=== PATIENT | female | born 1940 | race Caucasian/White ===

== ENCOUNTER 2024-03-15 20:29 | Emergency (ER) | payer MEDICARE, BC, SELFPAY ==
[2024-03-15 20:37] VITALS: BP 146/88
[2024-03-15 20:54] VITALS: BP 143/80; BMI 24.1
[2024-03-15 21:09] LABS: % Basophils 0.8 % (0-2); % Eosinophils 2.1 % (0-6); % Immature Granulocytes 0.3 % (0-0.5); % Lymphocytes 26.2 % (20.5-51.1); % Monocytes 9.6 % (1.7-9.3); Absolute Basophils 0.1 10^3/uL (0-0.2); Absolute Eosinophils 0.1 10^3/uL (0-0.7); Absolute Lymphocytes 1.6 10^3/uL (1.2-3.4); Absolute Monocytes 0.6 10^3/uL (0.1-0.6); Absolute Neutrophils 3.8 10^3/uL (1.4-6.5); Hematocrit 29.7 % (37.0-47.0); Hemoglobin 10.2 g/dL (12.0-16.0); Mean Corp Hgb Conc. 34.3 g/dL (33.0-37.0); Mean Corpuscular Hgb 32.5 pg (27.0-31.0); Mean Corpuscular Volume 94.6 fL (81.0-99.0); Mean Platelet Volume 9.9 fL (7.4-10.4); Nucleated Red Blood Cells % 0 %; Platelet Count 231 10^3/uL (130-400); Red Blood Cell Count 3.14 10^6/uL (4.20-5.40); Red Cell Dist. Width 12.6 % (11.5-14.5); White Blood Cell Count 6.3 10^3/uL (4.8-10.8)
[2024-03-15 21:21] LABS: ALT (SGPT) 18 U/L (0-35); AST (SGOT) 32 U/L (14-36); Albumin 3.9 g/dl (3.5-5.0); Alkaline Phosphatase 89 U/L (38-126); Blood Urea Nitrogen 23 mg/dl (7-17); Calcium 9.1 mg/dl (8.4-10.2); Carbon Dioxide 25 mmol/L (22-30); Chloride 100 mmol/L (98-107); Estimated Creatinine Clearance 39 ml/min; Glucose 131 mg/dl (70-99); Potassium 4.7 mmol/L (3.5-5.1); Sodium 132 mmol/L (135-145); Total Bilirubin 0.5 mg/dl (0.2-1.3); Total Protein 6.8 g/dl (6.3-8.2); eGFR 55.55
--- NOTE | 2024-03-15 21:27 | PHANOTE ---
03/15/2024, [employer], spoke to pt. to obtain her med. history; per pt., she took her 4 mg Ondansetron ODT tablet last night (prescribed 1 tab [id number] for nausea) and states that she did not feel well afterwards; pt. states to have experienced
negative symptoms after taking this med.
--- NOTE | 2024-03-15 21:47 | ED.GENMED ---
History of Present Illness
General
Chief Complaint: Weakness
Source: patient and family (Daughter)
Exam Limitations: none
Time Seen by Provider: 03/15/24 21:30
History of Present Illness
History of Present Illness:
This is a 84 year old female that comes in with c/o dehydration. State that she is just feeling dehydrated. States that she was given Zofran for nausea and this made her more nauseated and kept her up all night. States that she has an appointment
with the GI specialist tomorrow at 9am. States that she gets hot and cold. Patient does see Pain management for her chronic back pain. Denies any fever, chills, chest pain, SOB, abd pain, nausea, vomiting, dairrhea, headache, dizziness, urinary
burning.
Past History
Past History
ED Past Medical History: Psychiatric (Anxiety) and Other (Osteoporosis, Chronic back pain, Hep A, Glaucoma. Vertebral fractures)
ED Past Surgical History: Cholecystectomy, Orthopedic (Left knee replacement, Right hand surgery), Tonsilectomy and Other (hernia repair X 2 hand surgery)
Social History
Tobacco: Non-smoker
Alcohol: None
Personal:
Living: with family
Review of Systems
Review of Systems
All Other Systems: ROS reviewed and negative except as documented in HPI and ROS
Constitutional: Reports no symptoms; Denies fever or chills
EENT: Reports no symptoms
Respiratory: Reports no symptoms; Denies cough or trouble breathing
Cardiac: Reports no symptoms; Denies chest pain
ABD/GI: Reports no symptoms; Denies abdominal pain, nausea, vomiting or diarrhea
: Reports no symptoms; Denies dysuria, frequency or urgency
Musculoskeletal: Reports no symptoms
Skin: Reports no symptoms
Neurological: Reports no symptoms; Denies dizzy or headache
Psychiatric: Reports no symptoms
Phy Exam
General Physical Exam
General Presentation: mild distress
General age: appears stated age
General Skin: warm and dry
General Habitus: elderly
General Mental: alert
General Hydration: appears well hydrated
ENT Exam
ENT Exam: TM's normal, pharynx normal and neck supple
Eye Exam
Eye Exam: EOMI
Cardiovascular Exam
Cardiovascular Exam: regular rate/rhythm, no edema and normal peripheral pulses
Pulmonary Exam
Pulmonary Exam: lungs clear, no respiratory distress, no rales, chest non tender, no crackles, no rhonchi, no wheezing and no cough
Gastrointestinal Exam
Gastrointestinal Exam: normal bowel sounds, non tender, soft, no organomegaly, no pulsatile mass and non distended
Musculoskeletal Exam
Musculoskeletal Exam: full ROM, back pain (Chronic) and no edema
Skin Exam
Skin Exam: normal color, warm/dry, no rash and no petechia
Psychiatric Exam
Psychiatric Exam: normal mood/affect
Course
Orders/Labs/Results
Orders:
Orders
03/15/24 21:02
CMP [Comprehensive Metabolic Panel] Urgent
Complete Blood Count/With Diff Urgent
03/15/24 21:46
0.9% Sodium Chloride 1000 ml [Nss] 1,000 ml IV BOLUS
03/15/24 21:59
Urinalysis Reflex To Culture Urgent
Date Specimen was Collected: 03/15/24
Time Specimen was Collected: 21:54
Urine Microscopic Reflex Cult Urgent
Urine Culture Urgent
NAVEED Source: U
Specimen Description:
Date Specimen was Collected: 03/15/24
Time Specimen was Collected: 21:54
Abnormal Lab Results
03/15/24 03/15/24
21:02 21:59
RBC 3.14 L 10^6/uL
(4.20-5.40)
Hgb 10.2 L g/dL
(12.0-16.0)
Hct 29.7 L %
(37.0-47.0)
MCH 32.5 H pg
(27.0-31.0)
Monocytes % 9.6 H %
(1.7-9.3)
Sodium 132 L mmol/L
(135-145)
BUN 23 H mg/dl
(7-17)
Glucose 131 H mg/dl
(70-99)
Leukocyte Esterase Rfl 2+ A
(Negative)
Urine WBC (Reflex) 21-25 A /HPF
(0-5)
Urine Bacteria (Reflex) Few A
(Negative)
03/15/24 21:02
03/15/24 21:02
H/H low. Dehydration. Sodium slightly low. Glucose nonfasting. Urine questionable, would wait for Culture to treat
Vital Signs
Initial and Last Documented VS:
Initial Vital Signs
Temp Pulse Resp BP Pulse Ox
98.1 F 73 22 146/88 99
03/15/24 20:37 03/15/24 20:37 03/15/24 20:37 03/15/24 20:37 03/15/24 20:37
Last Documented Vital Signs
Temp Pulse Resp BP Pulse Ox
98.1 F 73 22 146/88 97
03/15/24 20:37 03/15/24 20:37 03/15/24 20:37 03/15/24 20:37 03/15/24 21:05
MDM/Problems Addressed
Differential Diagnosis Includes:
Dehydration. Chronic back pain,
MDM/Problems Addressed:
This is a 84 year old female that comes in with c/o dehydration. States that she has had issues with nausea and was given Zofran last night. States that this made her worse and she was up all night. State that she just wants IV fluids.
Will check labs, Urine and give IV fluids.
Patient was given IV fluids. Back into see patient. Patient now states that she can't eat or drink and this is why she is dehydrated. States that she can't go home. Will admit patient. Hospitalist notified.
Notified hospitalist and she now wants to go home. Patient was give water here and drank the entire glass. Will discharge home.
Chronic conditions affecting care:
Chronic back pain
Acute Exacerbation and/or Progression of Chronic Illness:
Chronic back pain
*Pulse Oximetry
Patient hypoxic: no
*EKG
Interpreted by ED Provider?: NA
Rate: EKG- N/A
*Rn Triage Interpretation
Rate: Rn Triage- N/A
*Critical Care Note
Total Time (30-74mins, 75-104mins- exclusive of procedures): Not Applicable
ED Attending Note
-
Portions of this chart may have been created with voice recognition software.� Occasional wrong word or��sound alike� substitutions may have occurred due to the inherent limitations of voice recognition software.
Discharge Plan
Departure
Patient Disposition: Home (Routine Discharge)
Date of Disposition: 03/15/24
Time of Disposition: 23:07
Patient with high blood pressure during this ER visit?: Yes
Condition: Good
Covid-19: Not Applicable
Discharge Problem:
Dehydration
Instructions: Dehydration, Adult ED, BLOOD PRESSURE
Prescriptions:
No Action
trazodone 50 mg Tablet
50 mg PO HS PRN (Reason: sleep)
polyethylene glycol 3350 [Miralax] 17 gram Powder In Packet
17 g PO DAILY
ofloxacin 0.3 % Drops
1 drp LEFT EYE DAILY@1999
cyanocobalamin (vitamin B-12) 1,000 mcg Tablet
1,000 mcg PO DAILY
oxycodone-acetaminophen 5-325 mg Tablet
1 tab PO Q4HPRN PRN (Reason: mild pain)
oxycodone-acetaminophen 5-325 mg Tablet
2 tab PO Q4HPRN PRN (Reason: severe pain)
Fleet Enema 19-7 gram/118 mL Enema
118 ml [place] DAILYPRN PRN (Reason: constipation)
zinc 50 mg Tablet
50 mg PO DAILY
folic acid 800 mcg Tablet
0.8 mg PO DAILY
Centrum Silver Tablet
1 tab PO DAILY
cholecalciferol (vitamin D3) 25 mcg (1,000 unit) Tablet
25 mcg PO DAILY
Visbiome 112.5 billion cell Capsule
1 cap PO DAILY
Lumigan 0.01 % Drops
1 drp RIGHT EYE DAILY@1999
PreserVision AREDS-2 250-90-40-1 mg Capsule
1 tab PO DAILY
Movantik 25 mg Tablet
25 mg PO DAILY
iron
1 tab PO MOWEFR@0800
Prolia 60 mg/mL Syringe
60 mg SC [id number]
Patient Comments:
03/15/2024, last dose in November per pt.
Referrals:
Kofi Aguilera MD [Family Provider] - Follow up in 2-3 days
Activity Restrictions/Additional Instructions:
As discussed, our blood work shows dehydration. Please increase your water intake to 8-8oz glasses daily. Follow up with the family doctor in the next 2- 3 days for further evaluation. Keep your GI appointment tomorrow. IF YOU HAVE ANY OTHER
CONCERNS PLEASE RETURN TO THE EMERGENCY ROOM
Interventions
Interventions:
*Risk Screen - Suicide Last Done: 03/15/24 20:40
*General Assessment Last Done: 03/15/24 20:39
*Neglect/Abuse Screening Last Done: 03/15/24 21:05
ED- Fall Risk Assessment Last Done: 03/15/24 21:05
ED- Cardiac Assessment Last Done: 03/15/24 21:05
ED- Neurological Assessment Last Done: 03/15/24 21:05
ED- Pulmonary Assessment Last Done: 03/15/24 21:05
Discharge Date and Time
Print Language: SERBIAN
[2024-03-15] MEDS: NSS 1000 IV (21:57)
[2024-03-15 22:10] LABS: Urine Albumin Negative (Neg - Trace); Urine Bilirubin Negative (Negative); Urine Character Slightly Cloudy (Clear); Urine Color Yellow; Urine Glucose Negative (Negative); Urine Ketone Negative (Negative); Urine Leukocyte 2+ (Negative); Urine Nitrite Negative (Negative); Urine Occult Blood Negative (Negative); Urine Specific Gravity 1.005 (<1.030); Urine Urobilinogen Negative (Neg - 1+)
[2024-03-15 22:32] LABS: Urine White Cell 21-25 /HPF (0-5)
[2024-03-15 22:33] LABS: Urine Bacteria Few (Negative)
[2024-03-15 23:01] VITALS: BP 141/75
== END 2024-03-15 23:35 | disposition home or self-care (01) ==
LOC: EMR 20:29
PROVIDERS: Clinical Nurse Specialist Family Health; EMERGENCY PHYSICIAN Emergency Medicine; FAMILY PHYSICIAN Family Medicine
DX: E86.0 Dehydration (principal); R03.0 Elevated blood-pressure reading, without diagnosis of hypertension; G89.29 Other chronic pain; M54.9 Dorsalgia, unspecified
CPT/HCPCS: 99284; 96360; 80053; 81003; 81015; 85025; 87086

== ENCOUNTER → 2024-03-21 09:51 | Outpatient (REF) | payer MEDICARE, BC, SELFPAY | LOC: RAD 09:51 | PROVIDERS: ATTENDING PHYSICIAN Nurse Practitioner Family; FAMILY PHYSICIAN Family Medicine | DX: R13.19 Other dysphagia (principal) | CPT/HCPCS: 74246 ==

== ENCOUNTER → 2024-03-25 06:21 | Day surgery (SDC) | payer MEDICARE, BC, SELFPAY | LOC: GI 06:21 | PROVIDERS: ATTENDING PHYSICIAN Internal Medicine | DX: R12 Heartburn (principal); R13.10 Dysphagia, unspecified; D64.9 Anemia, unspecified; K44.9 Diaphragmatic hernia without obstruction or gangrene; K22.4 Dyskinesia of esophagus; K31.89 Other diseases of stomach and duodenum; R11.0 Nausea; R93.3 Abnormal findings on diagnostic imaging of other parts of digestive tract | CPT/HCPCS: 43239; 88305; 88342 ==

== ENCOUNTER → 2024-03-30 12:09 | Outpatient (REF) | payer MEDICARE, BC, SELFPAY | LOC: RAD 12:09 | PROVIDERS: ATTENDING PHYSICIAN Internal Medicine; FAMILY PHYSICIAN Family Medicine | DX: R19.8 Other specified symptoms and signs involving the digestive system and abdomen (principal) | CPT/HCPCS: 74160; Q9967 ==

== ENCOUNTER 2024-04-05 11:56 | Emergency (ER) | payer MEDICARE, BC, SELFPAY ==
[2024-04-05 12:07] VITALS: BP 130/88
--- NOTE | 2024-04-05 12:47 | ED.GENMED ---
History of Present Illness
General
Chief Complaint: Abdominal Symptoms
Time Seen by Provider: 04/05/24 12:46
History of Present Illness
History of Present Illness:
HPI: The patient presents with ongoing nausea over the past several months. She has been to GI, had endoscopy, and had recent CT without clear improvement of symptoms. She is chronically on Percocet taking 5/325 mg 4 times per day related to
fractures from osteoporosis. Her current symptoms are primarily related to nausea as opposed to abdominal pain. Daughter is very concerned about her living situation at home as she lives by herself and has lost 15 pounds unintentionally over the
last several months. She is already on PPI and H2 shweta.
EXAM:
GENERAL: The patient appears somewhat weak and debilitated
HEENT: Somewhat dry oral mucosa
CARDIOVASCULAR: No murmurs, normal heart rate, regular rhythm, No chest wall tenderness
PULMONARY: No respiratory distress, breath sounds are clear and equal
ABDOMEN: Soft with no peritoneal signs, no tenderness
NEUROLOGIC: Fair strength all extremities, no coordination deficits
PSYCHIATRIC: Appropriate mental status, normal insight and judgement
EXTREMITIES: Nontender, no edema, moves all extremities equally
SKIN: No rash, no lesions
TIME OF INITIAL ENCOUNTER: 1 PM
NUMBER AND COMPLEXITY OF PROBLEMS ADDRESSED AT THE ENCOUNTER
� Chronic conditions affecting care: Hepatitis A, has had constipation, has chronic nausea, osteoporosis with fractures and chronically on Percocet
� Acute Exacerbation and/or Progression of Chronic Illness: This is a subacute problem
� Differential Diagnosis includes: Nausea from Percocet use, gastritis
AMOUNT AND/OR COMPLEXITY OF DATA TO BE REVIEWED AND ANALYZED
� I performed an independent evaluation of and my interpretation is:
EKG:
CT:
X-rays:
Laboratory Studies: White count is normal, hemoglobin is 10.9 which is higher than prior, renal function is normal, potassium hemolyzed
Other:
� Review of other/old records: The patient had upper endoscopy by Dr. 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
of the gastric body as well as significant erosive gastropathy with no stigmata of recent bleeding. CT of the abdomen pelvis on 03/30/2024�the compression of the left lateral gastric body was felt to be related to deformity of the left anterolateral
lower rib cage, she is status postcholecystectomy
� Clinical information was obtained by an independent historian: I spoke to the daughter at bedside
� Prescriptions/Medications Considered but not given:
� Further testing considered but not performed: Due to repeating potassium however the renal function is normal
RISK OF COMPLICATIONS AND/OR MORBIDITY OR MORTALITY OF PATIENT MANAGEMENT
� Social determinants of health affecting care: Lives at home by herself
� Discussion with other providers: I spoke to care management who spoke to daughter at bedside
� Escalation of care including admission/observation vs risk of discharge considered: Will check labs and give IV fluids as well as try Compazine. The patient does not tolerate Zofran. The patient was given Compazine and on
reassessment 2 PM, she feels significantly improved. Will also try switching to tramadol from Percocet. She is known to pain management and I encouraged her to follow-up with them as well. Will also give prescription for Carafate.
Past History
Past History
ED Past Medical History: Psychiatric (Anxiety) and Other (Osteoporosis, Chronic back pain, Hep A, Glaucoma. Vertebral fractures)
ED Past Surgical History: Cholecystectomy, Orthopedic (Left knee replacement, Right hand surgery), Tonsilectomy and Other (hernia repair X 2 hand surgery)
Social History
Tobacco: Non-smoker
Alcohol: None
Personal:
Living: with family
Phy Exam
Physical Exam
Physical Exam:
See HPI
Course
Orders/Labs/Results
Orders:
Orders
04/05/24 12:50
0.9% Sodium Chloride 1000 ml [Nss] 1,000 ml IV BOLUS
04/05/24 12:58
Case Management Consult ONCE
Case Management Consult: Other
Prochlorperazine [Compazine] 10 mg IV NOW STA
04/05/24 13:05
Basic Metabolic Panel Urgent
Complete Blood Count/With Diff Urgent
Lipase Urgent
04/05/24 13:23
Case Management Consult ONCE
Case Management Consult: [facility]/Home Care
04/05/24 13:28
Oxycodone/Acetaminophen [Percocet 5/325] 1 tablet PO NOW STA
Abnormal Lab Results
04/05/24
13:05
RBC 3.33 L 10^6/uL
(4.20-5.40)
Hgb 10.9 L g/dL
(12.0-16.0)
Hct 31.6 L %
(37.0-47.0)
MCH 32.7 H pg
(27.0-31.0)
BUN 23 H mg/dl
(7-17)
Glucose 109 H mg/dl
(70-99)
04/05/24 13:05
04/05/24 13:05
Vital Signs
Initial and Last Documented VS:
Initial Vital Signs
Temp Pulse Resp BP Pulse Ox
98.1 F 74 18 130/88 96
04/05/24 12:07 04/05/24 12:07 04/05/24 12:07 04/05/24 12:07 04/05/24 12:07
Last Documented Vital Signs
Temp Pulse Resp BP Pulse Ox
98.1 F 74 18 130/88 96
04/05/24 12:07 04/05/24 12:07 04/05/24 12:07 04/05/24 12:07 04/05/24 12:07
*Critical Care Note
Total Time (30-74mins, 75-104mins- exclusive of procedures): Not Applicable
ED Attending Note
-
Portions of this chart may have been created with voice recognition software.� Occasional wrong word or��sound alike� substitutions may have occurred due to the inherent limitations of voice recognition software.
Discharge Plan
Departure
Patient Disposition: Home (Routine Discharge)
Date of Disposition: 04/05/24
Time of Disposition: 13:55
Patient with high blood pressure during this ER visit?: Yes
Discharge Problem:
Nausea
Instructions: Nausea and Vomiting, Adult ED
Prescriptions:
New
prochlorperazine maleate [Compazine] 10 mg tablet
10 mg PO Q8H PRN (Reason: nausea and vomiting) Qty: 30 0RF
tramadol 50 mg tablet
50 mg PO Q8H PRN (Reason: Pain) Qty: 14 0RF
sucralfate [Carafate] 100 mg/mL suspension
1 g PO ACHS PRN (Reason: nausea) Qty: 500 0RF
No Action
trazodone 50 mg Tablet
50 mg PO HS PRN (Reason: sleep)
polyethylene glycol 3350 [Miralax] 17 gram Powder In Packet
17 g PO DAILY
ofloxacin 0.3 % Drops
1 drp LEFT EYE DAILY@2000
cyanocobalamin (vitamin B-12) 1,000 mcg Tablet
1,000 mcg PO DAILY
oxycodone-acetaminophen 5-325 mg Tablet
1 tab PO Q4HPRN PRN (Reason: mild pain)
oxycodone-acetaminophen 5-325 mg Tablet
2 tab PO Q4HPRN PRN (Reason: severe pain)
Fleet Enema 19-7 gram/118 mL Enema
118 ml [place] DAILYPRN PRN (Reason: constipation)
zinc 50 mg Tablet
50 mg PO DAILY
folic acid 800 mcg Tablet
0.8 mg PO DAILY
Centrum Silver Tablet
1 tab PO DAILY
cholecalciferol (vitamin D3) 25 mcg (1,000 unit) Tablet
25 mcg PO DAILY
Visbiome 112.5 billion cell Capsule
1 cap PO DAILY
Lumigan 0.01 % Drops
1 drp RIGHT EYE DAILY@2000
PreserVision AREDS-2 250-90-40-1 mg Capsule
1 tab PO DAILY
Movantik 25 mg Tablet
25 mg PO DAILY
iron
1 tab PO MOWEFR@0800
Prolia 60 mg/mL Syringe
60 mg SC [id number]
Patient Comments:
03/15/2024, last dose in November per pt.
Referrals:
Kofi Aguilera MD [Family Provider] -
Amanda Kapoor, [Active] - Follow up in 1 week
Activity Restrictions/Additional Instructions:
I sent a prescription for tramadol to your pharmacy. If you take tramadol, DO NOT TAKE PERCOCET. I also sent a prescription for Carafate which can be used to coat the stomach to be taken before meals and at nighttime. You can use this on an
as-needed basis and see if this helps you. I also sent a prescription to your pharmacy for Compazine which is a medicine for nausea. Follow-up with GI and your primary care doctor.
Interventions
Interventions:
*General Assessment Last Done: 04/05/24 12:03
*ED COVID-19 Vaccine History Last Done: 04/05/24 12:03
Discharge Date and Time
Print Language: SWAZI
[2024-04-05] MEDS: NSS 1000 IV (13:08)
[2024-04-05] MEDS: COMPAZINE 10 MG IV (13:08)
[2024-04-05 13:18] LABS: % Basophils 1.3 % (0-2); % Eosinophils 2.7 % (0-6); % Immature Granulocytes 0.2 % (0-0.5); % Lymphocytes 30.9 % (20.5-51.1); % Monocytes 9.3 % (1.7-9.3); % Neutrophils 55.6 % (42.2-75.2); Absolute Basophils 0.1 10^3/uL (0-0.2); Absolute Eosinophils 0.2 10^3/uL (0-0.7); Absolute Lymphocytes 1.7 10^3/uL (1.2-3.4); Absolute Monocytes 0.5 10^3/uL (0.1-0.6); Absolute Neutrophils 3.1 10^3/uL (1.4-6.5); Hematocrit 31.6 % (37.0-47.0); Hemoglobin 10.9 g/dL (12.0-16.0); Mean Corp Hgb Conc. 34.5 g/dL (33.0-37.0); Mean Corpuscular Hgb 32.7 pg (27.0-31.0); Mean Corpuscular Volume 94.9 fL (81.0-99.0); Mean Platelet Volume 10.2 fL (7.4-10.4); Nucleated Red Blood Cells % 0 %; Platelet Count 238 10^3/uL (130-400); Red Blood Cell Count 3.33 10^6/uL (4.20-5.40); Red Cell Dist. Width 13.2 % (11.5-14.5); White Blood Cell Count 5.6 10^3/uL (4.8-10.8)
[2024-04-05] MEDS: PERCOCET 5/325 1 TABLET PO (13:41)
[2024-04-05 13:42] LABS: Blood Urea Nitrogen 23 mg/dl (7-17); Calcium 9.6 mg/dl (8.4-10.2); Carbon Dioxide 28 mmol/L (22-30); Chloride 101 mmol/L (98-107); Glucose 109 mg/dl (70-99); Lipase 24 U/L (23-300); Sodium 135 mmol/L (135-145); eGFR > 60.00
--- NOTE | 2024-04-05 13:49 | CM ---
CM following re: discharge planning.
Reviewed pt's chart, met with pt and pt's daughter Lauren at bedside.
CM consulted to assist pt with discharger planning/setting up [facility] services.
Pt is an 84 year old female, arrived to ER with abdominal symptoms concerns.
Pt reports she lives alone in a 2[place] 55[place] community 2 steps to enter, has 5 supportive children. Pt reports she ambulates with a cane. per daughter, she helps daily and both pt and her daughter requested VN services. A list of VN vendors provided to
the pt and her daughter. [facility] preferred. A referral to VN made.
PCP: Kofi Aguilera
Pharmacy: [facility]
Please fax discharge instructions to [facility] at [phone].
D/C plan: home with [facility] and family support. Daughter to transport
--- NOTE | 2024-04-05 15:43 | VNURNOTE ---
Spoke with patient's daughter Lauren. Explained [facility] services, frequency. Daughter Lauren aware [facility] will contact patient in a few days for SOC. Referral placed in [facility].
== END 2024-04-05 14:51 | disposition home or self-care (01) ==
LOC: EMR 11:56
PROVIDERS: EMERGENCY PHYSICIAN Emergency Medicine; FAMILY PHYSICIAN Family Medicine
DX: R11.0 Nausea (principal); R53.1 Weakness; R03.0 Elevated blood-pressure reading, without diagnosis of hypertension; M81.0 Age-related osteoporosis without current pathological fracture; K44.9 Diaphragmatic hernia without obstruction or gangrene; K31.9 Disease of stomach and duodenum, unspecified; H40.9 Unspecified glaucoma; F41.9 Anxiety disorder, unspecified; G89.29 Other chronic pain; Z79.891 Long term (current) use of opiate analgesic; Z79.899 Other long term (current) drug therapy; Z98.890 Other specified postprocedural states; Z96.652 Presence of left artificial knee joint; Z90.49 Acquired absence of other specified parts of digestive tract; Z88.1 Allergy status to other antibiotic agents; Z88.3 Allergy status to other anti-infective agents; Z88.5 Allergy status to narcotic agent; Z88.0 Allergy status to penicillin
CPT/HCPCS: 99284; 96374; 96361; 80048; 83690; 85025

== ENCOUNTER 2024-04-28 06:16 | Day surgery (SDC) | payer MEDICARE, BC, SELFPAY ==
[2024-04-28 06:19] VITALS: BP 157/88
[2024-04-28 06:22] VITALS: BMI 22.5
[2024-04-28 06:33] VITALS: BMI 22.5
[2024-04-28] MEDS: TYLENOL 1000 MG PO (06:39)
[2024-04-28] MEDS: NORMOSOL-R 1000 IV (07:00)
--- NOTE | 2024-04-28 07:27 | W.SUR.PREOP ---
Pre-Operative Surgical Note
-
I have examined this patient prior to the performance of the scheduled procedure.
The patient's condition is unchanged from the time of the current History and
Physical and the patient is able to undergo the scheduled procedure.
[2024-04-28 08:40] VITALS: BP 137/81
--- NOTE | 2024-04-28 08:42 | W.IMMPOSTOP ---
Surgical Immed Post Op Note
-
Primary Surgeon: Yandel Roberts MD
Assisting Surgeon: None
Pre-op Diagnosis: Left buttock subcutaneous mass
Post-op Diagnosis: Same
Procedure Performed: Excision of left buttock subcutaneous mass
Anesthesia Type: General
Specimen / Cultures: Left buttock mass
Estimated Blood Loss: 1 cc
Complications: None
Operative Findings: 6 x 3 cm firm amorphous cystic mass extending fairly deep to the level of the ischial tuberosity. The capsule not violated.
--- NOTE | 2024-04-28 08:46 | OR.RPT ---
Operative Report
Operative Report
Patient Name: Sisi Singletary
: 1940
Date of Operation: 04/28/2040
Preoperative Diagnosis: Subcutaneous mass of the left buttock
Postoperative Diagnosis: Same
Procedure(s):
Excision of subcutaneous mass of the left buttock
Surgeon(s):
Dr. Roberts
Director Translation(s):
None
Anesthesia: MAC
Estimated Blood Loss: 1 cc
Urine Output: None
Drains/Lines/Implants: None
Specimens:
1. Left buttock mass
Indication for surgery:
This is an 84-year-old female with a very symptomatic mass on her left buttock over her ischial tuberosity that she has known about for several years. After evaluation in the office it was a little unclear as to the underlying nature of the mass,
it felt firm but fairly mobile. After discussion of risk benefits and alternatives he elected and was consented for surgery and removal of the mass .
Operative Findings: 6 x 3 cm firm amorphous cystic mass extending fairly deep to the level of the ischial tuberosity. The capsule not violated.
Details of the operation:
The patient was brought to the operating room a placed in the prone position. After appropriate sedation by anesthesia, the area of the buttock was prepped and draped in the usual fashion. A linear incision over natural skin line was made over the
mass and carried down. A white cystic capsule was noted immediately underneath the surface. This was not violated. Using curved hemostats the mass was carefully dissected from the surrounding connective tissue. The mass extended fairly deep,
much larger than initially anticipated. Carefully continued freeing the mass from the surrounding tissues which extended down to the level of the ischial tuberosity. The mass was freed and passed off the field. It measured roughly 6 x 3 cm. It
was firm and cystic, and somewhat amorphous in nature. The cavity was irrigated and hemostasis was achieved. The space was closed with interrupted 3-0 Vicryl sutures in layers. The dermis was then approximated using interrupted 3-0 Vicryl suture.
The skin was then closed using a running 4-0 Monocryl followed by Dermabond. All counts were correct at the end of procedure. The patient was then transferred to the PACU for recovery.
I was the attending physician and performed the procedure with no assistance. I was present for all portions of the case
Yandel Roberts MD
[2024-04-28 08:55] VITALS: BP 124/74
== END 2024-04-28 09:26 | disposition home or self-care (01) ==
LOC: SDS 06:16
PROVIDERS: ATTENDING PHYSICIAN Surgery
DX: R22.2 Localized swelling, mass and lump, trunk (principal)
CPT/HCPCS: 21931; 88304

== ENCOUNTER → 2024-06-14 15:36 | Outpatient (REF) | payer MEDICARE, BC, SELFPAY | LOC: RAD 15:36 | PROVIDERS: ATTENDING PHYSICIAN Family Medicine | DX: R91.8 Other nonspecific abnormal finding of lung field (principal); I77.819 Aortic ectasia, unspecified site | CPT/HCPCS: 71250 ==

== ENCOUNTER 2024-06-16 08:06 | Emergency (ER) | payer MEDICARE, BC, SELFPAY ==
[2024-06-16 08:09] VITALS: BP 146/85
[2024-06-16 08:39] VITALS: BMI 22.2
--- NOTE | 2024-06-16 09:03 | ED.GENMED ---
History of Present Illness
<Abram Orona DO - Last Filed: 06/19/24 14:29>
General
Chief Complaint: Chest Pain
Source: patient
Time Seen by Provider: 06/16/24 08:31
History of Present Illness
History of Present Illness:
84-year-old female presents emergency room with multiple complaints. Primary complaint appears to be nausea and vomiting. In addition the patient is complaining of having paresthesias of the distal fingers of both hands. She also felt like the
left arm was numb and weak. The left arm weakness and numbness seems to have improved except for her fingers. Patient does have chronic pain for which she sees pain management. She takes Percocet 4 to 5 tablets a day. Patient does have
constipation which is a chronic issue for her. She manages this with laxatives and enemas. Her last bowel movement was yesterday. Patient also has some abdominal discomfort which is diffuse. She denies any dysuria or frequency. Patient expresses
that she is just tired of not being well. Expresses hopelessness.
Past History
<Abram Orona DO - Last Filed: 06/19/24 14:29>
Past History
ED Past Medical History: Psychiatric (Anxiety) and Other (Osteoporosis, Chronic back pain, Hep A, Glaucoma. Vertebral fractures)
ED Past Surgical History: Cholecystectomy, Orthopedic (Left knee replacement, Right hand surgery), Tonsilectomy and Other (hernia repair X 2 hand surgery)
Social History
Tobacco: Non-smoker
Alcohol: None
Personal:
Living: with family
Phy Exam
<Abram Orona DO - Last Filed: 06/19/24 14:29>
Physical Exam
Physical Exam:
General: Awake, Alert, Oriented X3. Appears uncomfortable, withdrawn
Vitals: unremarkable
Head: Atraumatic
Eyes: Pupils equal, EOMI
Throat: Airway intact, no exudates
Neck: Trachea midline
Lungs: Clear and equal b/l
Heart: Regular rate, no murmurs
Abd: Soft, mild, diffusely tender, No pulsatile mass
Neuro: Cranial nerves intact, muscle strength equal bilaterally..... Patient can move all extremities and hold them up against gravity. However she does so very slowly and verbalizes how she 'just cannot do it'
Skin: Warm, dry, no rash
Extremities: pulses equal b/l, no edema
Scores
<Abram Orona DO - Last Filed: 06/19/24 14:29>
Heart Score for Chest Pain Patients
STEMI patient?: No
History: Moderately Suspicious
ECG: Nonspecific Repolarization
Age: >/= 65 years
Risk Factors: 1 or 2 Risk Factors
Troponin: >1 - <3 x Normal Limit
Heart Score for Chest Pain Patients: 6
Heart Score Risk: 20.3% MACE over next 6 weeks
Course
<Abram Orona DO - Last Filed: 06/19/24 14:29>
Orders/Labs/Results
Orders:
Orders
06/16/24 08:07
Electrocardiogram (*1) Urgent
Reason for Study: Chest Pain
EKG- Treatment ONCE
06/16/24 08:55
0.9% Sodium Chloride 500 ml [Nss] 500 ml IV BOLUS
Diphenhydramine [Benadryl] 25 mg IV NOW STA
Prochlorperazine [Compazine] 10 mg IV NOW STA
06/16/24 09:02
CT Cervical Spine W/o Iv Contr Stat
Comment:
Reason For Exam: left arm weakness
CT Head W/o Iv Contrast Urgent
Comment:
Reason For Exam: left arm weakness
06/16/24 09:22
Complete Blood Count/With Diff Urgent
Comprehensive Metabolic Panel Urgent
Troponin I Urgent
06/16/24 12:28
Lidocaine [Lidocaine 4% Patch] 1 patch TOPICAL NOW STA
Apply Lidocaine patch(s) to:: neck
06/16/24 12:40
Troponin I Urgent
Urinalysis Reflex To Culture Urgent
Date Specimen was Collected: 06/16/24
Time Specimen was Collected: 12:39
Abnormal Lab Results
06/16/24 06/16/24
09:22 12:40
RBC 3.37 L 10^6/uL
(4.20-5.40)
Hgb 11.3 L g/dL
(12.0-16.0)
Hct 32.2 L %
(37.0-47.0)
MCH 33.5 H pg
(27.0-31.0)
MPV 11.4 H fL
(7.4-10.4)
Absolute Lymphs (auto) 1.1 L 10^3/uL
(1.2-3.4)
Absolute Monos (auto) 0.8 H 10^3/uL
(0.1-0.6)
Lymphocytes % 14.2 L %
(20.5-51.1)
Monocytes % 10.5 H %
(1.7-9.3)
Sodium 133 L mmol/L
(135-145)
BUN 25 H mg/dl
(7-17)
Glucose 113 H mg/dl
(70-99)
AST 38 H U/L
(14-36)
Troponin I 0.039 H* ng/ml 0.036 H* ng/ml
06/16/24 09:22
06/16/24 09:22
Vital Signs
Initial and Last Documented VS:
Initial Vital Signs
Temp Pulse Resp BP Pulse Ox
98.1 F 76 17 146/85 100
06/16/24 08:09 06/16/24 08:09 06/16/24 08:09 06/16/24 08:09 06/16/24 08:09
Last Documented Vital Signs
Temp Pulse Resp BP Pulse Ox
99 F 76 17 141/96 97
06/16/24 14:06 06/16/24 11:31 06/16/24 11:31 06/16/24 14:01 06/16/24 11:31
<Fletcher Chew, DO - Last Filed: 06/17/24 18:57>
Orders/Labs/Results
Orders:
Orders
06/16/24 08:07
Electrocardiogram (*1) Urgent
Reason for Study: Chest Pain
EKG- Treatment ONCE
06/16/24 08:55
0.9% Sodium Chloride 500 ml [Nss] 500 ml IV BOLUS
Diphenhydramine [Benadryl] 25 mg IV NOW STA
Prochlorperazine [Compazine] 10 mg IV NOW STA
06/16/24 09:02
CT Cervical Spine W/o Iv Contr Stat
Comment:
Reason For Exam: left arm weakness
CT Head W/o Iv Contrast Urgent
Comment:
Reason For Exam: left arm weakness
06/16/24 09:22
Complete Blood Count/With Diff Urgent
Comprehensive Metabolic Panel Urgent
Troponin I Urgent
06/16/24 12:28
Lidocaine [Lidocaine 4% Patch] 1 patch TOPICAL NOW STA
Apply Lidocaine patch(s) to:: neck
06/16/24 12:40
Troponin I Urgent
Urinalysis Reflex To Culture Urgent
Date Specimen was Collected: 06/16/24
Time Specimen was Collected: 12:39
Abnormal Lab Results
06/16/24 06/16/24
09:22 12:40
RBC 3.37 L 10^6/uL
(4.20-5.40)
Hgb 11.3 L g/dL
(12.0-16.0)
Hct 32.2 L %
(37.0-47.0)
MCH 33.5 H pg
(27.0-31.0)
MPV 11.4 H fL
(7.4-10.4)
Absolute Lymphs (auto) 1.1 L 10^3/uL
(1.2-3.4)
Absolute Monos (auto) 0.8 H 10^3/uL
(0.1-0.6)
Lymphocytes % 14.2 L %
(20.5-51.1)
Monocytes % 10.5 H %
(1.7-9.3)
Sodium 133 L mmol/L
(135-145)
BUN 25 H mg/dl
(7-17)
Glucose 113 H mg/dl
(70-99)
AST 38 H U/L
(14-36)
Troponin I 0.039 H* ng/ml 0.036 H* ng/ml
06/16/24 09:22
06/16/24 09:22
Vital Signs
Initial and Last Documented VS:
Initial Vital Signs
Temp Pulse Resp BP Pulse Ox
98.1 F 76 17 146/85 100
06/16/24 08:09 06/16/24 08:09 06/16/24 08:09 06/16/24 08:09 06/16/24 08:09
Last Documented Vital Signs
Temp Pulse Resp BP Pulse Ox
99 F 76 17 141/96 97
06/16/24 14:06 06/16/24 11:31 06/16/24 11:31 06/16/24 14:01 06/16/24 11:31
<Abram H. DO Yeyo - Last Filed: 06/19/24 14:29>
MDM/Problems Addressed
Differential Diagnosis Includes:
ACS, ptx, chest wall pain, gerd
MDM/Problems Addressed:
EKG shows no acute ischemic changes. Trop minimally elevated at 0.038 and second measurement flat. Plan is for outpt cardiology follow up.
Chronic conditions affecting care: Other (peripheral neuropathy)
<Abram Orona, DO - Last Filed: 06/19/24 14:29>
*Radiology
Radiology exam reviewed: preliminary read by ED provider (GARY)
*Pulse Oximetry
Patient hypoxic: no
*EKG
Interpreted by ED Provider?: Yes
Interpretation: normal
Heart Rate: 78
Rate: normal
Rhythm: sinus and PAC's
Interval: normal interval
QRS Pattern: normal QRS
Ischemia: no ischemia
*Retort Cooler Interpretation
Rate: normal
Interpretation: normal
Rhythm: sinus and PAC's
*Critical Care Note
Total Time (30-74mins, 75-104mins- exclusive of procedures): Not Applicable
<Fletcher Chew, DO - Last Filed: 06/17/24 18:57>
Update Note
Update Note:
1:50 PM care of patient transition pending repeat troponin. The plan of care was to discharge if troponin remains relatively unchanged. Her troponin actually decreased somewhat. Patient remains comfortable in bed. Will place on cardiac callback
tracker. Daughter at bedside states she had an issue with this before with a negative workup
ED Attending Note
<Abram Orona, DO - Last Filed: 06/19/24 14:29>
-
Portions of this chart may have been created with voice recognition software.� Occasional wrong word or��sound alike� substitutions may have occurred due to the inherent limitations of voice recognition software.
Discharge Plan
Departure
Patient Disposition: Home (Routine Discharge)
Date of Disposition: 06/16/24
Time of Disposition: 13:55
Patient with high blood pressure during this ER visit?: No
Condition: Good
Discharge Problem:
Chest pain
Instructions: Chest Pain CBC Follow Up, Chest Pain PCP Follow Up
Prescriptions:
No Action
trazodone 50 mg Tablet
25 mg PO HS
polyethylene glycol 3350 [Miralax] 17 gram Powder In Packet
17 g PO DAILYPRN PRN (Reason: constipation)
ofloxacin 0.3 % Drops
1 drp LEFT EYE HS
cyanocobalamin (vitamin B-12) 1,000 mcg Tablet
1,000 mcg PO DAILY
oxycodone-acetaminophen 5-325 mg Tablet
1 tab PO Q4HPRN PRN (Reason: mild pain)
Patient Comments:
06/17/2024: last filled 06/06/24, 120 tabs for 30 days from [id number]
[id number]-[id number] Tablet
1 tab PO DAILY
Lumigan 0.01 % Drops
1 drp RIGHT EYE HS
zinc acetate 50 mg (zinc) Capsule
50 mg PO DAILY
prochlorperazine maleate [Compazine] 10 mg Tablet
10 mg PO Q8HPRN PRN (Reason: Nausea/ vomiting)
folic acid 1 mg Tablet
1 mg PO DAILY
magnesium 250 mg Tablet
250 mg PO DAILY Qty: 0
Prolia 60 mg/mL Syringe
60 mg SC [id number]
PreserVision AREDS-2 250-90-40-1 mg Capsule
1 tab PO DAILY
Calcium + D
1 gummy PO DAILY
Movantik 25 mg Tablet
25 mg PO DAILY
Fleet Enema 19-7 gram/118 mL Enema
118 ml CO DAILY PRN (Reason: constipation)
Visbiome 112.5 billion cell Capsule
1 cap PO DAILY Qty: 0
acetaminophen 325 mg tablet
650 mg PO Q6HPRN PRN (Reason: mild pain) Qty: 14 0RF
ibuprofen 600 mg tablet
600 mg PO Q6H PRN (Reason: pain) Qty: 14 0RF
aspirin 81 mg Tablet,Delayed Release (Dr/Ec)
81 mg PO DAILY
amoxicillin 500 mg tablet
500 mg PO TID
esomeprazole magnesium 40 mg capsule,delayed release(DR/EC)
40 mg PO DAILY
Linzess 145 mcg Capsule
145 mcg PO DAILYPRN PRN (Reason: constipation)
lidocaine [Lidocare] 4 % adhesive patch,medicated
1 patch topical DAILYPRN PRN (Reason: neck Pain)
Sleep3 10-200-50 mg Tablet,Ir,Delayed Rel,Biphasic
1 tab PO HS
Referrals:
Abram Plummer MD [Active] -
Lisy Hilton MD [Family Provider] -
Activity Restrictions/Additional Instructions:
Please return for any worsening symptoms.
You may return at any time if you have further concerns.
Please follow up with your doctor at the first available appointment, preferably this week.
You were placed on the cardiac callback tracker. Someone from their office should call you in the next few days. If you do not hear from them in the next few days, please give them a call.
Thank you for choosing [facility].
Interventions
Interventions:
*Risk Screen - Suicide Last Done: 06/16/24 08:09
*General Assessment Last Done: 06/16/24 08:40
*Neglect/Abuse Screening Last Done: 06/16/24 08:40
ED- Fall Risk Assessment Last Done: 06/16/24 08:40
*ED COVID-19 Vaccine History Last Done: 06/16/24 08:40
*Nursing Disposition Last Done: 06/16/24 14:07
ED- Cardiac Assessment Last Done: 06/16/24 08:40
Discharge Date and Time
Discharge Date/Time: 06/16/24 14:16
Print Language: [id number]
[2024-06-16] MEDS: BENADRYL 25 MG IV (09:10)
[2024-06-16 09:11] VITALS: BP 128/79
[2024-06-16] MEDS: COMPAZINE 10 MG IV (09:11)
[2024-06-16] MEDS: NSS 500 IV (09:11)
[2024-06-16 09:36] LABS: % Basophils 0.9 % (0-2); % Eosinophils 2.8 % (0-6); % Immature Granulocytes 0.3 % (0-0.5); % Lymphocytes 14.2 % (20.5-51.1); % Monocytes 10.5 % (1.7-9.3); % Neutrophils 71.3 % (42.2-75.2); Absolute Basophils 0.1 10^3/uL (0-0.2); Absolute Eosinophils 0.2 10^3/uL (0-0.7); Absolute Lymphocytes 1.1 10^3/uL (1.2-3.4); Absolute Monocytes 0.8 10^3/uL (0.1-0.6); Absolute Neutrophils 5.6 10^3/uL (1.4-6.5); Hematocrit 32.2 % (37.0-47.0); Hemoglobin 11.3 g/dL (12.0-16.0); Mean Corp Hgb Conc. 35.1 g/dL (33.0-37.0); Mean Corpuscular Hgb 33.5 pg (27.0-31.0); Mean Corpuscular Volume 95.5 fL (81.0-99.0); Mean Platelet Volume 11.4 fL (7.4-10.4); Nucleated Red Blood Cells % 0 %; Platelet Count 185 10^3/uL (130-400); Red Blood Cell Count 3.37 10^6/uL (4.20-5.40); Red Cell Dist. Width 12.9 % (11.5-14.5); White Blood Cell Count 7.9 10^3/uL (4.8-10.8)
[2024-06-16 09:45] LABS: ALT (SGPT) 23 U/L (0-35); AST (SGOT) 38 U/L (14-36); Albumin 3.8 g/dl (3.5-5.0); Alkaline Phosphatase 77 U/L (38-126); Blood Urea Nitrogen 25 mg/dl (7-17); Calcium 9.1 mg/dl (8.4-10.2); Carbon Dioxide 23 mmol/L (22-30); Chloride 99 mmol/L (98-107); Estimated Creatinine Clearance 42 ml/min; Glucose 113 mg/dl (70-99); Potassium 4.1 mmol/L (3.5-5.1); Sodium 133 mmol/L (135-145); Total Bilirubin 0.6 mg/dl (0.2-1.3); Total Protein 6.4 g/dl (6.3-8.2); eGFR > 60.00
[2024-06-16 09:59] LABS: Troponin I 0.039 ng/ml
[2024-06-16 10:17] VITALS: BP 137/82
[2024-06-16 11:00] VITALS: BP 126/83
[2024-06-16] MEDS: LIDOCAINE 4% PATCH 1 PATCH TOPICAL (12:37)
[2024-06-16 13:14] LABS: Urine Albumin Negative (Neg - Trace); Urine Bilirubin Negative (Negative); Urine Character Clear (Clear); Urine Color Yellow; Urine Glucose Negative (Negative); Urine Ketone Negative (Negative); Urine Leukocyte Negative (Negative); Urine Nitrite Negative (Negative); Urine Occult Blood Negative (Negative); Urine Urobilinogen Negative (Neg - 1+)
[2024-06-16 13:28] LABS: Troponin I 0.036 ng/ml
[2024-06-16 14:01] VITALS: BP 141/96
== END 2024-06-16 14:16 | disposition home or self-care (01) ==
LOC: EMR 08:06
PROVIDERS: EMERGENCY PHYSICIAN Emergency Medicine; FAMILY PHYSICIAN Family Medicine
DX: R07.89 Other chest pain (principal)
CPT/HCPCS: 99284; 96374; 96375; 96361; 70450; 72125; 80053; 81003; 84484; 85025; 93005

== ENCOUNTER 2024-06-17 15:50 | Inpatient (IN) | payer MEDICARE, BC, SELFPAY ==
[2024-06-17] VITALS (24 sets, daily range): BP systolic 87–133; BP diastolic 51–80; BMI 24.2
[2024-06-17 12:01] LABS: % Eosinophils 2.4 % (0-6); % Immature Granulocytes 0.3 % (0-0.5); % Lymphocytes 14.3 % (20.5-51.1); % Monocytes 11.6 % (1.7-9.3); % Neutrophils 70.4 % (42.2-75.2); Absolute Basophils 0.1 10^3/uL (0-0.2); Absolute Eosinophils 0.2 10^3/uL (0-0.7); Absolute Lymphocytes 1.3 10^3/uL (1.2-3.4); Absolute Neutrophils 6.2 10^3/uL (1.4-6.5); Hematocrit 35.3 % (37.0-47.0); Hemoglobin 12.1 g/dL (12.0-16.0); Mean Corp Hgb Conc. 34.3 g/dL (33.0-37.0); Mean Corpuscular Hgb 33.1 pg (27.0-31.0); Mean Corpuscular Volume 96.4 fL (81.0-99.0); Mean Platelet Volume 10.7 fL (7.4-10.4); Nucleated Red Blood Cells % 0 %; Platelet Count 176 10^3/uL (130-400); Red Blood Cell Count 3.66 10^6/uL (4.20-5.40); Red Cell Dist. Width 13.2 % (11.5-14.5); White Blood Cell Count 8.7 10^3/uL (4.8-10.8)
[2024-06-17 12:12] LABS: ALT (SGPT) 29 U/L (0-35); AST (SGOT) 43 U/L (14-36); Albumin 3.7 g/dl (3.5-5.0); Alkaline Phosphatase 103 U/L (38-126); Blood Urea Nitrogen 28 mg/dl (7-17); Calcium 8.9 mg/dl (8.4-10.2); Carbon Dioxide 24 mmol/L (22-30); Chloride 99 mmol/L (98-107); Glucose 119 mg/dl (70-99); Potassium 4.6 mmol/L (3.5-5.1); Sodium 136 mmol/L (135-145); Total Bilirubin 0.7 mg/dl (0.2-1.3); Total Protein 6.4 g/dl (6.3-8.2); eGFR 44.64
[2024-06-17 12:27] LABS: Troponin I 0.101 ng/ml
[2024-06-17] MEDS: NSS 500 IV (12:38)
--- NOTE | 2024-06-17 12:44 | ED.GENMED ---
History of Present Illness
<ELHAM Duff - Last Filed: 06/17/24 15:55>
General
Chief Complaint: Fall
Source: patient
Exam Limitations: none
Time Seen by Provider: 06/17/24 12:30
Nursing documentation reviewed up to this point in time: agreed with
History of Present Illness
History of Present Illness:
Patient is an 84-year-old female who presents to the ER for evaluation. Patient reports she got up this morning around 7:50 AM felt lightheaded and fell hitting the right side of her face and twisting her right ankle. She denies loss of
consciousness. She was able to call her daughter. She recalls all events able to give clear full history denies headache. She is on blood thinners. Denies any neck or back pain. (she has chronic back pain nothing new from fall today ) She
reports she was here yesterday.
Chart reviewed from yesterday reports patient had several complaints of nausea and vomiting and paresthesias in distal fingers of both hands.
Patient today reports she was simply lightheaded which is what she believes caused her to fall to the ground. She denies any chest shortness of breath. She denies any palpitations. Patient presents to the ER in A-fib but was unaware of this. She
denies loss of consciousness denies headache.
Past History
<ELHAM Duff - Last Filed: 06/17/24 15:55>
Past History
ED Past Medical History: Psychiatric (Anxiety) and Other (Osteoporosis, Chronic back pain, Hep A, Glaucoma. Vertebral fractures)
ED Past Surgical History: Cholecystectomy, Orthopedic (Left knee replacement, Right hand surgery), Tonsilectomy and Other (hernia repair X 2 hand surgery)
Social History
Tobacco: Non-smoker
Alcohol: None
Personal:
Living: with family
Review of Systems
<ELHAM Duff - Last Filed: 06/17/24 15:55>
Review of Systems
Allergies reviewed?: Yes
All Other Systems: ROS reviewed and negative except as documented in HPI and ROS
Constitutional: Reports no symptoms
Respiratory: Reports no symptoms
Cardiac: Denies chest pain, palpitations or syncope
ABD/GI: Reports no symptoms
Musculoskeletal: Reports other (Right ankle pain)
Skin: Reports no symptoms
Neurological: Reports other (no LOC ); Denies headache
Psychiatric: Reports no symptoms
Phy Exam
<ELHAM Duff - Last Filed: 06/17/24 15:55>
General Physical Exam
General Presentation: no apparent distress
General age: appears stated age
General Skin: warm and dry
General Habitus: elderly
General Mental: alert
General Hydration: appears well hydrated
Cardiovascular Exam
Cardiovascular Exam: no murmur and irregularly irregular
Pulmonary Exam
Pulmonary Exam: lungs clear and no respiratory distress
Neurological Exam
Neurological Exam: alert and oriented x3
Philip Coma Scale
Eye Opening: Spontaneous
Verbal Response: Oriented
Motor Response: Obeys Commands
GCS Total Score: 15
Musculoskeletal Exam
Musculoskeletal Exam: other (Positive abrasion to right facial cheek, mild swelling to right lateral ankle with tenderness over lateral malleolus no proximal tib-fib tenderness)
Skin Exam
Skin Exam: normal color and warm/dry
Psychiatric Exam
Psychiatric Exam: normal mood/affect
<Ravindra Rose DO - Last Filed: 06/17/24 13:25>
Philip Coma Scale
GCS Total Score: 15
Course
<ELHAM Duff - Last Filed: 06/17/24 15:55>
Orders/Labs/Results
Orders:
Orders
06/17/24 11:36
Electrocardiogram (*1) Urgent
Reason for Study: Vertigo / Dizzy
EKG- Treatment ONCE
06/17/24 11:37
Ankle, Right 3 view CR [CR Ankle - Right Min 3 Views *] Urgent
Comment:
Reason For Exam: fall
06/17/24 11:45
Complete Blood Count/With Diff Urgent
Comprehensive Metabolic Panel Urgent
Troponin I Urgent
06/17/24 12:29
0.9% Sodium Chloride 500 ml [Nss] 500 ml IV BOLUS
06/17/24 13:27
Diltiazem 125 mg/125 ml Nss [Cardizem] 125 mg in 125 ml IV NOW
Initial dose in mg/hr, then titrate:: 5
Titrate to keep:: Heart rate 80-100 bpm
Titrate by mg/hr:: 5 mg/hr
Frequency of titrations (minutes):: 15
Maximum dose in mg/hr:: 15
06/17/24 13:28
Splints/Slings/Crut- Treatment ONCE
Location: Right
Type of Splint: Short Leg
06/17/24 13:34
Oxycodone/Acetaminophen [Percocet 5/325] 1 tablet .ROUTE .STK-MED ONE
06/17/24 13:36
Oxycodone/Acetaminophen [Percocet 5/325] 1 tablet PO NOW STA
06/17/24 13:57
Heparin 4,000 units IV NOW STA
Nursing to Place Non Medication Order As Directed
Physician Order: PTT 6 hours after initial start of Heparin infusion
Above order entered?: Yes
06/17/24 14:00
Heparin 54539 Units/250 ml 25,000 units in 250 ml IV PER PROTOCOL
Weight to be used for heparin protocol in kilograms (kg):: 66
Protocol:: Cardiac Tx/Acute Coronary
PTT Goal Range to be used:: PTT 73 to 111 seconds
Order type:: Initial
INITIAL Infusion Dose (UNITS/KG/hr) & then follow protocol:: 12 units/kg/hr
Infusion Dose in UNITS/hr & then follow protocol (UNITS/hr):: 800
INFUSION RATE in mL/hr & then follow protocol (mL/hr):: 8
PTT less than or equal to 64 seconds:: Increase rate by 200 units/hr (+ 2 mL/hr)
PTT 64.1 to 72.9 seconds:: Increase rate by 100 units/hr (+ 1 mL/hr)
PTT 73 to 111 seconds:: Target Range. No change in rate.
PTT 111.1 to 130.9 seconds:: Decrease rate by 100 units/hr (- 1 mL/hr)
PTT 131 to 199.9 seconds:: HOLD for 1 hr. Then decrease rate by 200 units/hr (- 2 mL/hr)
PTT greater than or equal to 200 seconds:: HOLD for 2 hrs & Notify Provider. Then decrease by 200 units/hr (-
2 mL/hr)
Lab follow-up:: Each change, PTT q6h until 2 consecutive are therapeutic. Then PTT
daily.
06/17/24 14:21
PTT Urgent
Comment: Obtain baseline before beginning heparin infusion if not already collected
06/17/24 15:12
Admit/Transfer Patient As Directed
Co-Sign Provider:
Level of Care: Inpatient admission
Assign to:: IMU- Intermediate Care
Physician / Group: Nadya/Hospitalist
Diagnosis: A.fib RVR, trop elevated, near-syncope
Reason for Hospitalization: A.fib RVR, trop elevated, near-syncope
Expected length of stay greater than two midnights?: Yes
ELOS- Estimated Length of Stay in days: 3
I certify the patient meets the requirements for IP care: Yes
06/17/24 15:13
Echo 2D MMode Color/Doppler Routine
Reason for Study: new rapid Afib
PRN Pain Medication Management As Directed
May give lesser potent ordered pain med per pt: Yes
preference::
Protocol:: Medication orders for pain may be administered in a
manner that supports deferring to patient preference
when the pt is:
- Requesting an ordered lesser potent pain medication.
Least to most potent pain medications are defined
as: acetaminophen < NSAID < tramadol < opioids
(morphine, oxycodone, hydromorphone).
- Requesting a lesser dose of the same medication IF
ORDERED.
- Requesting a less intrusive route of administration
if both routes are prescribed by the provider (PO <
IV).
06/17/24 15:20
Code Status As Directed
Resuscitation Status: Do not resuscitate
Reached after discussion with pt or family/Healthcare POA: Yes
06/17/24 15:21
DNR Bracelet Application ONCE
06/17/24 15:39
Chest [CR Chest - 2 Views ] Urgent
Comment:
Reason For Exam: cp
06/17/24 21:00
PTT Urgent
Abnormal Lab Results
06/17/24
11:45
RBC 3.66 L 10^6/uL
(4.20-5.40)
Hct 35.3 L %
(37.0-47.0)
MCH 33.1 H pg
(27.0-31.0)
MPV 10.7 H fL
(7.4-10.4)
Absolute Monos (auto) 1.0 H 10^3/uL
(0.1-0.6)
Lymphocytes % 14.3 L %
(20.5-51.1)
Monocytes % 11.6 H %
(1.7-9.3)
BUN 28 H mg/dl
(7-17)
Creatinine 1.2 H mg/dL
(0.6-1.0)
Glucose 119 H mg/dl
(70-99)
AST 43 H U/L
(14-36)
Troponin I 0.101 H* ng/ml
06/17/24 11:45
06/17/24 11:45
Vital Signs
Initial and Last Documented VS:
Initial Vital Signs
Temp Pulse Resp BP Pulse Ox
98.1 F 113 18 93/55 96
06/17/24 11:30 06/17/24 11:30 06/17/24 11:30 06/17/24 11:30 06/17/24 11:30
Last Documented Vital Signs
Temp Pulse Resp BP Pulse Ox
98.1 F 87 12 95/51 94
06/17/24 11:30 06/17/24 15:30 06/17/24 15:30 06/17/24 15:30 06/17/24 15:30
Coordinator Of Health Services consulted with Physician
Coordinator Of Health Services consulted with physician?: Yes
Name of Physician Consulted: Milton
<Ravindra Rose, DO - Last Filed: 06/17/24 13:25>
Orders/Labs/Results
Orders:
Orders
06/17/24 11:36
Electrocardiogram (*1) Urgent
Reason for Study: Vertigo / Dizzy
EKG- Treatment ONCE
06/17/24 11:37
Ankle, Right 3 view CR [CR Ankle - Right Min 3 Views *] Urgent
Comment:
Reason For Exam: fall
06/17/24 11:45
Complete Blood Count/With Diff Urgent
Comprehensive Metabolic Panel Urgent
Troponin I Urgent
06/17/24 12:29
0.9% Sodium Chloride 500 ml [Nss] 500 ml IV BOLUS
06/17/24 13:27
Diltiazem 125 mg/125 ml Nss [Cardizem] 125 mg in 125 ml IV NOW
Initial dose in mg/hr, then titrate:: 5
Titrate to keep:: Heart rate 80-100 bpm
Titrate by mg/hr:: 5 mg/hr
Frequency of titrations (minutes):: 15
Maximum dose in mg/hr:: 15
06/17/24 13:28
Splints/Slings/Crut- Treatment ONCE
Location: Right
Type of Splint: Short Leg
06/17/24 13:34
Oxycodone/Acetaminophen [Percocet 5/325] 1 tablet .ROUTE .STK-MED ONE
06/17/24 13:36
Oxycodone/Acetaminophen [Percocet 5/325] 1 tablet PO NOW STA
06/17/24 13:57
Heparin 4,000 units IV NOW STA
Nursing to Place Non Medication Order As Directed
Physician Order: PTT 6 hours after initial start of Heparin infusion
Above order entered?: Yes
06/17/24 14:00
Heparin 28128 Units/250 ml 25,000 units in 250 ml IV PER PROTOCOL
Weight to be used for heparin protocol in kilograms (kg):: 66
Protocol:: Cardiac Tx/Acute Coronary
PTT Goal Range to be used:: PTT 73 to 111 seconds
Order type:: Initial
INITIAL Infusion Dose (UNITS/KG/hr) & then follow protocol:: 12 units/kg/hr
Infusion Dose in UNITS/hr & then follow protocol (UNITS/hr):: 800
INFUSION RATE in mL/hr & then follow protocol (mL/hr):: 8
PTT less than or equal to 64 seconds:: Increase rate by 200 units/hr (+ 2 mL/hr)
PTT 64.1 to 72.9 seconds:: Increase rate by 100 units/hr (+ 1 mL/hr)
PTT 73 to 111 seconds:: Target Range. No change in rate.
PTT 111.1 to 130.9 seconds:: Decrease rate by 100 units/hr (- 1 mL/hr)
PTT 131 to 199.9 seconds:: HOLD for 1 hr. Then decrease rate by 200 units/hr (- 2 mL/hr)
PTT greater than or equal to 200 seconds:: HOLD for 2 hrs & Notify Provider. Then decrease by 200 units/hr (-
2 mL/hr)
Lab follow-up:: Each change, PTT q6h until 2 consecutive are therapeutic. Then PTT
daily.
06/17/24 14:21
PTT Urgent
Comment: Obtain baseline before beginning heparin infusion if not already collected
06/17/24 15:12
Admit/Transfer Patient As Directed
Co-Sign Provider:
Level of Care: Inpatient admission
Assign to:: IMU- Intermediate Care
Physician / Group: Nadya/Hospitalist
Diagnosis: A.fib RVR, trop elevated, near-syncope
Reason for Hospitalization: A.fib RVR, trop elevated, near-syncope
Expected length of stay greater than two midnights?: Yes
ELOS- Estimated Length of Stay in days: 3
I certify the patient meets the requirements for IP care: Yes
06/17/24 15:13
Echo 2D MMode Color/Doppler Routine
Reason for Study: new rapid Afib
PRN Pain Medication Management As Directed
May give lesser potent ordered pain med per pt: Yes
preference::
Protocol:: Medication orders for pain may be administered in a
manner that supports deferring to patient preference
when the pt is:
- Requesting an ordered lesser potent pain medication.
Least to most potent pain medications are defined
as: acetaminophen < NSAID < tramadol < opioids
(morphine, oxycodone, hydromorphone).
- Requesting a lesser dose of the same medication IF
ORDERED.
- Requesting a less intrusive route of administration
if both routes are prescribed by the provider (PO <
IV).
06/17/24 15:20
Code Status As Directed
Resuscitation Status: Do not resuscitate
Reached after discussion with pt or family/Healthcare POA: Yes
06/17/24 15:21
DNR Bracelet Application ONCE
06/17/24 15:39
Chest [CR Chest - 2 Views ] Urgent
Comment:
Reason For Exam: cp
06/17/24 21:00
PTT Urgent
Abnormal Lab Results
06/17/24
11:45
RBC 3.66 L 10^6/uL
(4.20-5.40)
Hct 35.3 L %
(37.0-47.0)
MCH 33.1 H pg
(27.0-31.0)
MPV 10.7 H fL
(7.4-10.4)
Absolute Monos (auto) 1.0 H 10^3/uL
(0.1-0.6)
Lymphocytes % 14.3 L %
(20.5-51.1)
Monocytes % 11.6 H %
(1.7-9.3)
BUN 28 H mg/dl
(7-17)
Creatinine 1.2 H mg/dL
(0.6-1.0)
Glucose 119 H mg/dl
(70-99)
AST 43 H U/L
(14-36)
Troponin I 0.101 H* ng/ml
06/17/24 11:45
06/17/24 11:45
Vital Signs
Initial and Last Documented VS:
Initial Vital Signs
Temp Pulse Resp BP Pulse Ox
98.1 F 113 18 93/55 96
06/17/24 11:30 06/17/24 11:30 06/17/24 11:30 06/17/24 11:30 06/17/24 11:30
Last Documented Vital Signs
Temp Pulse Resp BP Pulse Ox
98.1 F 87 12 95/51 94
06/17/24 11:30 06/17/24 15:30 06/17/24 15:30 06/17/24 15:30 06/17/24 15:30
<ELHAM Duff - Last Filed: 06/17/24 15:55>
MDM/Problems Addressed
MDM/Problems Addressed:
Patient is an 84-year-old female who was seen here yesterday for vague complaints presents back to the ER today for evaluation. Patient was dizzy prior to arrival and fell hitting right face and twisting right ankle. No loss of consciousness no
headache no neurological complaints on arrival. Patient denies any chest pain prior to fall however found to be in rapid A-fib on arrival. She has no history of A-fib she is unaware that she is in A-fib at this time. Patient with no complaints of
headaches no obvious head injury mild abrasion to right cheek not on blood thinners recalls all events. as d/c w/ ED physician will hold off on ct head .
Patient presents with lower blood pressure in the 90s/100 systolically.
Patient was nontoxic. He is reviewed ED physician evaluated patient with low blood pressure will give Cardizem drip but hold off on bolus. She was given fluids.
Will order heparin. Patient treated to the hospital service I did notify hospitalist and cardiology on-call. They will see her in consult this afternoon. will also notify ortho as consult
<ELHAM Duff - Last Filed: 06/17/24 15:55>
*Pulse Oximetry
Patient hypoxic: no
*EKG
Interpreted by ED Provider?: Yes
Interpretation: abnormal
Comparison EKG: changes noted (now in afib )
Heart Rate: 145
Rate: tachycardiac
Rhythm: a-fib
Ischemia: non-specific ST changes
*Critical Care Note
Total Time (30-74mins, 75-104mins- exclusive of procedures): Not Applicable
comment:
Critical care statement: A total of 30 minutes of critical care time was provided for this patient. This includes management of unstable vital signs, evaluation of the patient at bedside, reviewing the patient's pertinent medical records,
discussion with consultants, review of old EKGs and review of pertinent medical records. This time with separate from time utilized to perform the aforementioned documented procedures
Data Reviewed
Review of Other/Old Records Reveals: Other (Yesterday ED visit)
Source: patient
<ELHAM Duff - Last Filed: 06/17/24 15:55>
Patient Management
Discussion with other providers: [employer] Operations Manager (ortho DR Huizar, Cardio :DR Plummer )
ED Attending Note
<ELHAM Duff - Last Filed: 06/17/24 15:55>
-
Portions of this chart may have been created with voice recognition software.� Occasional wrong word or��sound alike� substitutions may have occurred due to the inherent limitations of voice recognition software.
<Ravindra Rose DO - Last Filed: 06/17/24 13:25>
ED Attending Note
Patient seen and examined by attending physician: Yes
I performed the substantive portion of visit, reviewed & personally made and approve the management plan that is documented in note by myself or VICENTE.: Yes
ED Attending Note:
seen with ultrasound technol
agree with a/p
Return visit, near syncope, second onset was ankle fracture, tropes are trending up, rapid A-fib with low BP
Plan to be blood pressure control rate control echo consideration for CT to rule out PE other creatinine is up today
Discharge Plan
Departure
Patient Disposition: Admit
Date of Disposition: 06/17/24
Time of Disposition: 13:56
Admit to: Telemetry
Admit to doctor: hospitalist
Presentation/result/management discussed w/ accepting MD/DO: Hospitalist
Patient with high blood pressure during this ER visit?: No
Condition: Fair
Covid-19: Not Applicable
Discharge Problem:
Atrial fibrillation, rapid, Closed fibular fracture
Prescriptions:
No Action
trazodone 50 mg Tablet
25 mg PO HS
polyethylene glycol 3350 [Miralax] 17 gram Powder In Packet
17 g PO DAILYPRN PRN (Reason: constipation)
ofloxacin 0.3 % Drops
1 drp LEFT EYE HS
cyanocobalamin (vitamin B-12) 1,000 mcg Tablet
1,000 mcg PO DAILY
oxycodone-acetaminophen 5-325 mg Tablet
1 tab PO Q4HPRN PRN (Reason: mild pain)
Patient Comments:
06/17/2024: last filled 06/06/24, 120 tabs for 30 days from [facility][id number]
kdsafhvaxfyi-[id number] Tablet
1 tab PO DAILY
Lumigan 0.01 % Drops
1 drp RIGHT EYE HS
zinc acetate 50 mg (zinc) Capsule
50 mg PO DAILY
prochlorperazine maleate [Compazine] 10 mg Tablet
10 mg PO Q8HPRN PRN (Reason: Nausea/ vomiting)
folic acid 1 mg Tablet
1 mg PO DAILY
magnesium 250 mg Tablet
250 mg PO DAILY Qty: 0
Prolia 60 mg/mL Syringe
60 mg SC [id number]
PreserVision AREDS-2 250-90-40-1 mg Capsule
1 tab PO DAILY
Calcium + D
1 gummy PO DAILY
Movantik 25 mg Tablet
25 mg PO DAILY
Fleet Enema 19-7 gram/118 mL Enema
118 ml NV DAILY PRN (Reason: constipation)
Visbiome 112.5 billion cell Capsule
1 cap PO DAILY Qty: 0
acetaminophen 325 mg tablet
650 mg PO Q6HPRN PRN (Reason: mild pain) Qty: 14 0RF
ibuprofen 600 mg tablet
600 mg PO Q6H PRN (Reason: pain) Qty: 14 0RF
aspirin 81 mg Tablet,Delayed Release (Dr/Ec)
81 mg PO DAILY
amoxicillin 500 mg tablet
500 mg PO TID
esomeprazole magnesium 40 mg capsule,delayed release(DR/EC)
40 mg PO DAILY
Linzess 145 mcg Capsule
145 mcg PO DAILYPRN PRN (Reason: constipation)
lidocaine [Lidocare] 4 % adhesive patch,medicated
1 patch topical DAILYPRN PRN (Reason: neck Pain)
Referrals:
Lisy Hilton MD [Family Provider] -
Discharge Date and Time
Print Language: TURKMEN
[2024-06-17] MEDS: PERCOCET 5/325 1 TABLET PO (13:37)
[2024-06-17] MEDS: CARDIZEM 125 IV (13:40)
--- NOTE | 2024-06-17 14:16 | HPS.HSE ---
Family Physician
-
Family Physician: Lisy Hilton
Chief Complaint
-
dizziness and fall
History of Present Illness
The patient is an 84 yo woman with PMH significant for GERD, esophageal dysphagia, chronic constipation secondary to narcotic use (was taking Naloxegel), presbyesophagus, erosive gastropathy (EGD 03/2024), rectocele, CKD, HLD, depression, dysphagia,
? extrinsic compression on gastric body (? CT op), who presents to the ED due to lightheadedness associated with fall and hitting the right side of her face and twisting her right ankle, after getting up out of bed this morning at approximately
750am. She was in ED yesterday due to n/v/paraesthesias with plans for OP follow up.
No LOC, no palpitations, no CP, no SOB, no n/v/d, no fevers, no GUTIERREZ, no bleeding, no dysuria nor urinary complaints.
She is found to be in A.fib with RVR in ED rate 145
ED txt: IV fluid bolus 500 mL, IV Diltiazem gtt, splint RLE
Labs: Creat 1.2 (up from 1.0 on 06/16/24) AST 43 (same as 2013)
Trop 0.101 (was 0.036 on 06/16/24)
Medical History
Past Medical History
Past Medical History: Reports GERD, Hypercholesterolemia and Other (hyponatremia, hiatal hernia, osteoporosis, opioid dependence, peripheral neuropathy, chronic pain, colon polyps, OA multiple joints, multiple rib fractures, pelvic fracture)
Past Surgical History: Reports Cholecystectomy, Orthopedic (total knee replacement) and Other (sacroplasty, vertebroplasty, left bunionectomy)
Social History
Tobacco: Former Smoker
Alcohol: None
Drug: None
Living: Assisted Living
Family History
Family History: CAD (Father in mid-70s, Uncles in 50s heart disease)
Allergies / Home Medications
Allergies reflects when Allergies were last updated in [employer].
Home Medications with original date entered in [employer]
Allergy/Medication List:
Allergies
Allergy/AdvReac Type Severity Reaction Status Date / Time
cephalexin Allergy Denies Verified 06/17/24 11:30
Cephalosporins Allergy Esequiel Verified 06/17/24 11:30
hydrocodone Allergy Unknown Verified 06/17/24 11:30
morphine Allergy SEVERE Verified 06/17/24 11:30
VOMITING
Penicillins Allergy patient Verified 06/17/24 11:30
takes
amoxixillin
pre dental
work w/o
adverse
reacti
Home Medications
bimatoprost 0.01 % eye drops (Lumigan) 1 drp RIGHT EYE HS 03/15/24
cyanocobalamin (vitamin B-12) 1,000 mcg tablet 1,000 mcg PO DAILY 03/15/24
ixdhsxnethah-akqtgqew-objsys tablet 1 tab PO DAILY 03/15/24
ofloxacin 0.3 % eye drops 1 drp LEFT EYE HS 03/15/24
oxycodone-acetaminophen 5 mg-325 mg tablet 1 tab PO Q4HPRN PRN mild pain 03/15/24
polyethylene glycol 3350 17 gram oral powder packet (Miralax) 17 g PO DAILYPRN PRN constipation 03/15/24
trazodone 50 mg tablet 25 mg PO HS sleep 03/15/24
Calcium + D 1 gummy PO DAILY 04/22/24
denosumab 60 mg/mL subcutaneous syringe (Prolia) 60 mg SC [id number] 04/22/24
folic acid 1 mg tablet 1 mg PO DAILY 04/22/24
magnesium 250 mg tablet 250 mg PO DAILY ##0 04/22/24
prochlorperazine maleate 10 mg tablet (Compazine) 10 mg PO Q8HPRN PRN Nausea/ vomiting 04/22/24
vit C 250 mg-vit E 90 mg-zinc 40 mg-copper 1 is-oviuqc-ygecja capsule (PreserVision AREDS-2) 1 tab PO DAILY 04/22/24
zinc acetate 50 mg (zinc) capsule 50 mg PO DAILY 04/22/24
Lactobac no.2-Bifidobac no.1-S. thermo 112.5 billion cell capsule (Visbiome) 1 cap PO DAILY ##0 04/28/24
acetaminophen 325 mg tablet 650 mg (2 x 325 mg) PO Q6HPRN PRN mild pain #14 tabs 04/28/24
ibuprofen 600 mg tablet 600 mg PO Q6H PRN pain #14 tabs 04/28/24
naloxegol 25 mg tablet (Movantik) 25 mg PO DAILY 04/28/24
sodium phosphates 19 gram-7 gram/118 mL enema (Fleet Enema) 118 ml [place] DAILY PRN constipation 04/28/24
amoxicillin 500 mg tablet 500 mg PO TID 06/17/24
aspirin 81 mg tablet,delayed release 81 mg PO DAILY 06/17/24
esomeprazole magnesium 40 mg capsule,delayed release 40 mg PO DAILY 06/17/24
lidocaine 4 % topical patch (Lidocare) 1 patch topical DAILYPRN PRN neck Pain 06/17/24
linaclotide 145 mcg capsule (Linzess) 145 mcg PO DAILYPRN PRN constipation 06/17/24
Review of Systems
-
A 12 point ROS was completed and negative except as noted: Yes
Physical Exam
Vital Signs
Vital Signs
Temp Pulse Resp BP Pulse Ox
98.1 F 105 18 116/71 97
06/17/24 11:30 06/17/24 14:00 06/17/24 14:00 06/17/24 14:00 06/17/24 14:00
Physical Exam
General: Well Developed, Well Nourished, No Apparent Distress, Comfortable and Conversant
HEENT: NormoCephalic, Anicteric and Moist mucous membranes
Respiratory: Clear
Cardiac: Irregular Rhythm and Tachycardia
GI: Soft, Non Tender and Non Distended
Musculoskeletal: No Clubbing, No Cyanosis and Other (RLE lateral malleolus erythema and swelling)
Skin: Warm
Neuro: AO x 3
Psych: Calm
Laboratory Results
-
06/17/24 11:45
06/17/24 11:45
Laboratory Results
Total Bilirubin 0.7 mg/dl (0.2-1.3) 06/17/24 11:45
AST 43 U/L (14-36) H 06/17/24 11:45
ALT 29 U/L (0-35) 06/17/24 11:45
Alkaline Phosphatase 103 U/L (38-126) 06/17/24 11:45
Troponin I 0.101 ng/ml H* 06/17/24 11:45
Data Reviewed
-
Diagnostic Radiology: Report Reviewed by me (X-ray ankle minimally displaced oblique fracture involving the distal right fibular metaphysis.)
CT Scan: Report Reviewed by me (CT head on 06/16 no acute pathology)
Medical Tests (Nuc Med, Echo, EKG etc): Image Personally Visualized and interpreted and Report Reviewed by me (Meghann nuno variable AV block rate 145)
Lab Data: Labs Reviewed by me, Discussed with Physician and Discussed with Nurse
Impression/Plan
-
IMPRESSION:The patient is an 84 yo woman with PMH significant for GERD, esophageal dysphagia, chronic constipation secondary to narcotic use (was taking Naloxegel), presbyesophagus, erosive gastropathy (EGD 03/2024), rectocele, CKD, HLD, depression,
dysphagia, extrinsic compression on gastric body (had CT op- ribs are compressing), who presents to the ED due to lightheadedness associated with fall and hitting the right side of her face and twisting her right ankle, after getting up out of bed
this morning at approximately 750am. She was in ED yesterday due to n/v/paraesthesias with plans for OP follow up.
No LOC, no palpitations, no CP, no SOB, no n/v/d, no fevers, no GUTIERREZ, no bleeding, no dysuria nor urinary complaints.
She is found to be in A.fib with RVR in ED rate 145
ED txt: IV fluid bolus 500 mL, IV Diltiazem gtt, splint RLE
Labs: Creat 1.2 (up from 1.0 on 06/16/24) AST 43 (same as 2013)
Trop 0.101 (was 0.036 on 06/16/24)
#Near syncope and fall likely due to atrial fibrillation with RVR (unclear if new onset or not), associated with initial hypotension, possible cariogenic syncope
-Admit to IMU
-Cardiology consultation appreciated
-continue Cardizem gtt and heparin gtt initiated in the ED
-aspirin now and continue daily
-IVF, a/p 500 mL bolus in ED and continue for 1 more liter 100 mL / hour
-Echocardiogram
-Carotid Dopplers
-serial trop
-repeat EKG and telemetry monitoring
-consider CT chest , though low suspicion for PE at this time-recent CT chest 06/14/24 though w/o contrast- linear fibrosis minor fissure , traction bronchiectasis and scarring and trace pericardial effusion
#Non-displaced right ankle fracture s/p fall
-splinted in ED
-ortho cx
-elevate/ice
#GERD
-EGD 03/2024 presbyesophagus, erosive gastropathy
-cont PPI
-findings on EGD of 'extrinsic compression' - fu CT a/p showed rib deformity compressing upper abdomen, portal to hepatic shunting, focal vascular malformation, abdominal aorta 3.0 cm
#Chronic pain, on Vicodin 4 pills per day for years
-cont home pain med regimen
#Chronic constipation
-hold Movantik for now, contraindicated while on Diltiazem
-cont home regimen
DVT proph - hep gtt
Pt is DNR
DNR
[2024-06-17 14:39] LABS: APTT 32.2 Sec (23.4-35.0)
[2024-06-17] MEDS: HEPARIN 4000 UNITS IV (14:59)
[2024-06-17] MEDS: HEPARIN 25000 UNITS/250 ML IV (15:00)
--- NOTE | 2024-06-17 15:05 | CON.CAR ---
Addendum entered and electronically signed by Abram Plummer MD 06/17/24 15:44:
Patient seen and examined in collaboration with [employer]; agree with below.
-84-year-old female with no previous cardiac history presented after a fall at home after becoming lightheaded/dizzy; was found to be in new onset atrial fibrillation with RVR.
-Will obtain an echocardiogram today.
-Continue heparin drip; transition to NOAC prior to discharge.
-Continue Cardizem drip for now; likely transition to PO rate-controlling medication tomorrow after echocardiogram results are known.
-Orthopedics evaluation for fibula fracture prior to transitioning to NOAC.
Original Note:
Consultation
Consultation Request
Date/Time Consultation Requested: 06/17/24 1:50p
Date/Time Consultation Performed: 06/17/24 2: 15p
Requesting Provider: ELHAM Aguilar
Performing Provider: ELHAM Espinal for Dr. Plummer
Reason for Consultation: rapid Afib
Medical History
-
Chief Complaint: dizziness and fall
History of Present Illness:
Mrs. Canchola is an 84 yo female with osteoporosis, chronic back pain, multiple vertebral fractures status post kyphoplasty managed by pain management, and anxiety, who presents to the ER from home after a fall. She states waking up and walking into
another room, she felt lightheaded and then fell and hit her face on a table and twisted her right ankle. She denies loss of consciousness. She is admitted to the hospitalist service and we are consulted for rapid A-fib noted on admission to ER.
She was given IV diltiazem and started on IV heparin drip. She complains of feeling fatigued and dizzy at times for the last several months. A-fib is new.
Past Medical History
Past Medical History: Other (As above)
Past Surgical History: Other (As above)
Social History
Tobacco: Non-Smoker
Alcohol: None
Personal:
Living: Alone
Family History
Family History: Reviewed & Not Pertinent
Allergies / Home Medications
Allergy/AdvReac Type Severity Reaction Status Date / Time
cephalexin Allergy Denies Verified 06/17/24 11:30
Cephalosporins Allergy Esequiel Verified 06/17/24 11:30
hydrocodone Allergy Unknown Verified 06/17/24 11:30
morphine Allergy SEVERE Verified 06/17/24 11:30
VOMITING
Penicillins Allergy patient Verified 06/17/24 11:30
takes
amoxixillin
pre dental
work w/o
adverse
reacti
�Medication �Instructions �Recorded �Confirmed �Type
bimatoprost 0.01 % eye drops 1 drp RIGHT EYE HS 03/15/24 06/17/24 History
(Lumigan)
cyanocobalamin (vitamin B-12) 1,000 mcg PO DAILY 03/15/24 06/17/24 History
1,000 mcg tablet
tymwtumhnvlh-ifinyezo-lucdyn tablet 1 tab PO DAILY 03/15/24 06/17/24 History
ofloxacin 0.3 % eye drops 1 drp LEFT EYE HS 03/15/24 06/17/24 History
oxycodone-acetaminophen 5 mg-325 1 tab PO Q4HPRN PRN mild pain 03/15/24 06/17/24 History
mg tablet
polyethylene glycol 3350 17 gram 17 g PO DAILYPRN PRN constipation 03/15/24 06/17/24 History
oral powder packet (Miralax)
trazodone 50 mg tablet 25 mg PO HS sleep 03/15/24 06/17/24 History
Calcium + D 1 gummy PO DAILY 04/22/24 06/17/24 History
denosumab 60 mg/mL subcutaneous 60 mg SC [id number] 04/22/24 06/17/24 History
syringe (Prolia)
folic acid 1 mg tablet 1 mg PO DAILY 04/22/24 06/17/24 History
magnesium 250 mg tablet 250 mg PO DAILY ##0 04/22/24 06/17/24 History
prochlorperazine maleate 10 mg 10 mg PO Q8HPRN PRN Nausea/ 04/22/24 06/17/24 History
tablet (Compazine) vomiting
vit C 250 mg-vit E 90 mg-zinc 40 1 tab PO DAILY 04/22/24 06/17/24 History
mg-copper 1 [id number]
capsule (PreserVision AREDS-2)
zinc acetate 50 mg (zinc) capsule 50 mg PO DAILY 04/22/24 06/17/24 History
Lactobac no.2-Bifidobac no.1-S. 1 cap PO DAILY ##0 04/28/24 06/17/24 History
thermo 112.5 billion cell capsule
(Visbiome)
acetaminophen 325 mg tablet 650 mg (2 x 325 mg) PO Q6HPRN PRN 04/28/24 06/17/24 Rx
mild pain #14 tabs
ibuprofen 600 mg tablet 600 mg PO Q6H PRN pain #14 tabs 04/28/24 06/17/24 Rx
naloxegol 25 mg tablet (Movantik) 25 mg PO DAILY 04/28/24 06/17/24 History
sodium phosphates 19 gram-7 118 ml [place] DAILY PRN constipation 04/28/24 06/17/24 History
gram/118 mL enema (Fleet Enema)
amoxicillin 500 mg tablet 500 mg PO TID 06/17/24 06/17/24 History
aspirin 81 mg tablet,delayed 81 mg PO DAILY 06/17/24 06/17/24 History
release
esomeprazole magnesium 40 mg 40 mg PO DAILY 06/17/24 06/17/24 History
capsule,delayed release
lidocaine 4 % topical patch 1 patch topical DAILYPRN PRN neck 06/17/24 06/17/24 History
(Lidocare) Pain
linaclotide 145 mcg capsule 145 mcg PO DAILYPRN PRN 06/17/24 06/17/24 History
(Linzess) constipation
Review of Systems
-
History Source: Patient
All other systems: Negative unless noted
Physical Exam
Vital Signs
Temp Pulse Resp BP Pulse Ox
98.1 F 119 13 100/63 94
06/17/24 11:30 06/17/24 14:15 06/17/24 14:15 06/17/24 14:15 06/17/24 14:15
Lab Results
06/17/24 11:45
06/17/24 11:45
Troponin I 0.101 ng/ml H* 06/17/24 11:45
Physical Exam
General: Well Developed and Well Nourished
HEENT: Normocephalic and Anicteric
Respiratory: Clear and Non Labored Respirations
Cardiac: S1/S2 and Irregular Rhythm (Tachycardia)
Breast: Deferred by me
GI: Soft, Non Tender, Non Distended and Normal Bowel Sounds
Rectal: Deferred by Provider
Genito-urinary: No Costovertebral Tender
Musculoskeletal: Other (Right lateral ankle swelling and ecchymosis noted)
Skin: Warm and Dry
Neuro: AO x 3
Hematologic/Lymphatic: No Lymphadenopathy
Psych: Calm
Impression / Plan
-
Afib - new onset, rapid RVR.
- IV diltiazem drip at 10mg/ml, continue.
- IV heparin.
- [id number] VASc score is 3 (age, female), OAC with IV Heparin for now, await ortho consult to ensure no further surgery/intervention is required.
- investigate ovalles of Eliquis 5mg BID.
Right ankle fracture - acute status post fall.
- Ortho consulted.
Osteoporosis - significant with kyphoplasty x 2.
- Chronic back pain managed by pain management on chronic Percocet
Data Reviewed
-
Radiology: Report Reviewed by me (right ankle x-ray: Minimally displaced oblique fracture involving the distal right fibular metaphysis)
CT Scan: Report Reviewed by me (head: Unremarkable)
Labs: Labs Reviewed by me
Old Records: Reviewed
[2024-06-17] MEDS: NSS 1000 IV (20:36)
[2024-06-17] MEDS: DESYREL 25 MG PO (20:52)
[2024-06-17] MEDS: ASPIR LOW (ENTERIC COATED) 81 MG PO (20:52)
[2024-06-17] MEDS: XALATAN OPHTHALMIC SOLUTION 1 DROP RIGHT EYE (20:54)
[2024-06-17] MEDS: OCUFLOX 1 DROP LEFT EYE (20:55)
[2024-06-17 21:26] LABS: APTT 100.5 Sec (23.4-35.0)
[2024-06-17 21:41] LABS: Troponin I 0.084 ng/ml
[2024-06-18] VITALS (12 sets, daily range): BP systolic 109–133; BP diastolic 57–82; BMI 21.6
[2024-06-18] MEDS: PERCOCET 5/325 1 TABLET PO (00:22)
[2024-06-18 00:48] LABS: Magnesium 2.1 mg/dl (1.6-2.3)
[2024-06-18 01:01] LABS: Troponin I 0.086 ng/ml
--- NOTE | 2024-06-18 01:10 | PTCARENOTE ---
Patient received on stretcher, pulled over to bed d/t fx right ankle. Patient states she has no pain at this time. Admission completed, assessment completed. Right ankle in short leg splint, <2 cap refill, weak PP, decreased sensation however
patient states she has neuropathy in both her feet. Heparin 800 units/8 mls/hr infusing through right forearm and Cardizem 5 mg IV infusing through right AC. Patient in afib on the monitor, HR 90's. Labs sent as ordered, EKG completed as ordered.
Plan of care discussed, questions answered, verbalized understanding. Patient resting in bed, call meza in reach.
[2024-06-18] MEDS: FLEET PHOSPHATE ENEMA-ADULT 135 ML RECTAL (04:07)
[2024-06-18 04:14] LABS: % Basophils 0.9 % (0-2); % Eosinophils 5.3 % (0-6); % Immature Granulocytes 0.3 % (0-0.5); % Monocytes 8.7 % (1.7-9.3); % Neutrophils 62.8 % (42.2-75.2); Absolute Basophils 0.1 10^3/uL (0-0.2); Absolute Eosinophils 0.5 10^3/uL (0-0.7); Absolute Monocytes 0.8 10^3/uL (0.1-0.6); Absolute Neutrophils 5.8 10^3/uL (1.4-6.5); Hematocrit 33.6 % (37.0-47.0); Hemoglobin 11.6 g/dL (12.0-16.0); Mean Corp Hgb Conc. 34.5 g/dL (33.0-37.0); Mean Corpuscular Hgb 33.2 pg (27.0-31.0); Mean Corpuscular Volume 96.3 fL (81.0-99.0); Mean Platelet Volume 10.6 fL (7.4-10.4); Nucleated Red Blood Cells % 0 %; Platelet Count 181 10^3/uL (130-400); Red Blood Cell Count 3.49 10^6/uL (4.20-5.40); Red Cell Dist. Width 13.1 % (11.5-14.5); White Blood Cell Count 9.2 10^3/uL (4.8-10.8)
[2024-06-18 04:32] LABS: INR 1.16; PT 14.6 Sec (11.4-14.6)
[2024-06-18 04:33] LABS: APTT 87.8 Sec (23.4-35.0)
[2024-06-18 04:41] LABS: ALT (SGPT) 26 U/L (0-35); AST (SGOT) 35 U/L (14-36); Albumin 3.3 g/dl (3.5-5.0); Alkaline Phosphatase 117 U/L (38-126); Blood Urea Nitrogen 25 mg/dl (7-17); Calcium 8.3 mg/dl (8.4-10.2); Carbon Dioxide 19 mmol/L (22-30); Chloride 103 mmol/L (98-107); Estimated Creatinine Clearance 42 ml/min; Glucose 110 mg/dl (70-99); HDL Cholesterol 64 mg/dl; LDL Cholesterol, Calculated 71 mg/dl; Potassium 3.9 mmol/L (3.5-5.1); Sodium 136 mmol/L (135-145); Total Bilirubin 0.8 mg/dl (0.2-1.3); Total Cholesterol 153 mg/dl (50-199); Triglyceride 93 mg/dl (10-149); Very Low Density Lipoprotein 18 mg/dl (0-30); eGFR > 60.00
[2024-06-18] MEDS: COMPAZINE 5 MG IV ×2 (05:53→11:21)
[2024-06-18] MEDS: MAGNESIUM OXIDE 250 MG PO (07:18)
[2024-06-18] MEDS: ASPIR LOW (ENTERIC COATED) 81 MG PO (07:18)
[2024-06-18] MEDS: FOLVITE 1 MG PO (07:18)
[2024-06-18] MEDS: PROTONIX 40 MG PO (07:18)
[2024-06-18] MEDS: VITAMIN B-12 1000 MCG PO (07:18)
[2024-06-18] MEDS: MIRALAX 17 GRAMS PO (08:22)
[2024-06-18 08:39] LABS: Glycohemoglobin (HgbA1c) 5.8 % (4.0-5.6)
--- NOTE | 2024-06-18 09:34 | W.PN.HOSP.TC ---
Today's Communication/Plan
-
Cardizem. Eliquis. PT OT eval
Assessment / Plan
Assessment / Plan
Physical exam:
General: Acute on chronically ill
HEENT: Normocephalic, Atraumatic and Moist Mucous Membranes
Respiratory: Clear to Auscultation; Negative Wheezes, Rales or Rhonchi
Cardiac: Regular Rhythm and S1/S2
GI: Soft, Nontender and Nondistended
Musculoskeletal: mild tender in ankle area. No Clubbing, No Cyanosis and No Edema
Neuro: Awake, Alert and Oriented
Psych: Calm
A/P:
Atrial fibrillation with ventricular response, new onset:
On IV heparin drip will be switched to Eliquis
On IV Cardizem drip will be switched to oral Cardizem 180 mg daily
Converted to normal sinus rhythm
Echo with EF 60 to 65%
Cardiology consult appreciated
Right ankle fracture:
Likely due to trauma and osteoporosis both
Orthopedic consult appreciated
Plan for conservative approach and outpatient follow-up with Ortho
PT OT eval
Osteoporosis/kyphoplasty x 2 in the past:
Continue pain control
Constipation:
Continue bowel regimen
Water enema today
Nausea:
Continue antiemetics and add some small dose of Ativan for anxiety and helps with nausea as well.
Bowel regimen as above and limit medications that can worsen nausea
Continue oral PPI
DVT prophylaxis:
Eliquis
CODE STATUS:
DNR
Anticipated Discharge: 24 - 48 hours
Subjective/Interval History
-
Date of Service: June 18, 2024
Patient complains of constipation. Denies chest pain or shortness of breath.
Objective Data
-
Labs:
Laboratory Results
06/18/24
03:59
WBC 9.2
Hgb 11.6 L
Hct 33.6 L
Plt Count 181
PT 14.6
INR 1.16
APTT 87.8 H
Sodium 136
Potassium 3.9
Chloride 103
Carbon Dioxide 19 L
BUN 25 H
Creatinine 0.9
Glucose 110 H
Calcium 8.3 L
Total Bilirubin 0.8
AST 35
ALT 26
Alkaline Phosphatase 117
Vital Signs:
Vital Signs
Temp Pulse Resp BP Pulse Ox
98.0 F 83 11 112/69 98
06/18/24 07:00 06/18/24 06:15 06/18/24 06:15 06/18/24 06:00 06/18/24 06:15
I&O
06/17/24 06/18/24 06/19/24
06:59 06:59 06:59
Intake Total 360 / 360
Output Total 400 / 400
Balance -40 / -40
--- NOTE | 2024-06-18 09:38 | CON.ORTHO ---
Consultation
-
Date/Time Consultation Requested: Jun 14/1958
Date/Time Consultation Performed: Jun 14/0845
Requesting Provider: Nadya
Performing Provider: Bentley for Ritting
Reason for Consultation: Right distal fibular fracture
Consultation - Orthopedics
History
Dictation#[id number]
Asked to see this pleasant 84 y/o white female, in the presence of her granddaugther ([employer] at [facility]) who has a PMH significant for GERD, esophageal dysphagia, chronic constipation secondary to narcotic use (was taking Naloxegel),
presbyesophagus, erosive gastropathy (EGD 03/2024), rectocele, CKD, HLD, depression, dysphagia, who presented to the ED due to lightheadedness associated with fall and hitting the right side of her face and twisting her right ankle after getting up
out of bed this morning. She has been fatigued and lightheaded for a while I'm told. She was found to be in Afib and has been admitted to the IMU. She has been seen by cardiology and work-up/Tx ongoing. Xrays in the ED revealed a right distal fibula
fracture. She was splinted and instructed to be NWB. We have been requested in consult give this fracture.
Allergies / Home Medications
Allergy/AdvReac Type Severity Reaction Status Date / Time
cephalexin Allergy Denies Verified 06/17/24 11:30
Cephalosporins Allergy Esequiel Verified 06/17/24 11:30
hydrocodone Allergy Unknown Verified 06/17/24 11:30
morphine Allergy SEVERE Verified 06/17/24 11:30
VOMITING
Penicillins Allergy patient Verified 06/17/24 11:30
takes
amoxixillin
pre dental
work w/o
adverse
reacti
ondansetron [From Zofran] AdvReac Intermediate Nausea / Verified 06/18/24 05:15
Vomiting
�Medication �Instructions �Recorded
bimatoprost 0.01 % eye drops 1 drp RIGHT EYE HS Eye Condition 03/15/24
(Lumigan)
cyanocobalamin (vitamin B-12) 1,000 mcg PO DAILY Supplement 03/15/24
1,000 mcg tablet
rbodcfeigrzb-sapowitz-shzlpw tablet 1 tab PO DAILY Supplement 03/15/24
ofloxacin 0.3 % eye drops 1 drp LEFT EYE HS Eye Condition 03/15/24
oxycodone-acetaminophen 5 mg-325 1 tab PO Q4HPRN PRN mild pain 03/15/24
mg tablet
polyethylene glycol 3350 17 gram 17 g PO DAILYPRN PRN constipation 03/15/24
oral powder packet (Miralax)
trazodone 50 mg tablet 25 mg PO HS sleep 03/15/24
Calcium + D 1 gummy PO DAILY Supplement 04/22/24
denosumab 60 mg/mL subcutaneous 60 mg SC [id number] hypercalcemia 04/22/24
syringe (Prolia)
folic acid 1 mg tablet 1 mg PO DAILY Supplement 04/22/24
magnesium 250 mg tablet 250 mg PO DAILY Supplement ##0 04/22/24
prochlorperazine maleate 10 mg 10 mg PO Q8HPRN PRN Nausea/ 04/22/24
tablet (Compazine) vomiting
vit C 250 mg-vit E 90 mg-zinc 40 1 tab PO DAILY Supplement 04/22/24
mg-copper 1 [id number]-vqwihj
capsule (PreserVision AREDS-2)
zinc acetate 50 mg (zinc) capsule 50 mg PO DAILY Supplement 04/22/24
Lactobac no.2-Bifidobac no.1-S. 1 cap PO DAILY Supplement ##0 04/28/24
thermo 112.5 billion cell capsule
(Visbiome)
acetaminophen 325 mg tablet 650 mg (2 x 325 mg) PO Q6HPRN PRN 04/28/24
mild pain #14 tabs
ibuprofen 600 mg tablet 600 mg PO Q6H PRN pain #14 tabs 04/28/24
naloxegol 25 mg tablet (Movantik) 25 mg PO DAILY Constipation 04/28/24
sodium phosphates 19 gram-7 118 ml [place] DAILY PRN constipation 04/28/24
gram/118 mL enema (Fleet Enema)
amoxicillin 500 mg tablet 500 mg PO TID Infection 06/17/24
aspirin 81 mg tablet,delayed 81 mg PO DAILY Blood Clot 06/17/24
release Prevention/Tx
esomeprazole magnesium 40 mg 40 mg PO DAILY Gastrointestinal 06/17/24
capsule,delayed release Issue
lidocaine 4 % topical patch 1 patch topical DAILYPRN PRN neck 06/17/24
(Lidocare) Pain
linaclotide 145 mcg capsule 145 mcg PO DAILYPRN PRN 06/17/24
(Linzess) constipation
melatonin 10 mg-thean 1 tab PO HS 06/18/24
[id number]
tablet,immed-ext rel (Sleep3)
Vital Signs / Lab Results
Temp Pulse Resp BP Pulse Ox
98.0 F 83 11 112/69 98
06/18/24 07:00 06/18/24 06:15 06/18/24 06:15 06/18/24 06:00 06/18/24 06:15
06/18/24 03:59
06/18/24 03:59
Assessment / Plan
PE: Patient in bed. Granddaughter bedside. RLE spinted. No open wounds. Tender over the distal fibula. No pain over the medial ankle or achilles. Deferred ROM. Calf soft, nontender. DNVI RLE
Xrays: Right minimally displaced distal fibula fracture
Impression: ISAI
Plan: Fortunately her right ankle fracture is non-operative. Discussed with both she and her granddaughter. Will place a consult to [facility] for a CAM boot. She may be PWB in the boot on a walker. If deemed safe with the primary team PT/OT could be
beneficial for gait training. When in bed, awake, boot may be removed to elevate and ice. Would sleep with boot in place. Recommend outpatient Ortho follow-up in 2 weeks for repeat xrays and discuss progressing her WBAT in the boot, based on exam.
Ortho will check in tomorrow AM to make sure the boot was placed, then sign off. D/c info in plan.
--- NOTE | 2024-06-18 09:44 | W.PN.CD ---
Today's Communication / Plan
-
- Switch IV dilt to PO
- Switch Heparin to low dose Eliquis
- Follow up as outpatient. May need 2 weeks monitoring for AF burden.
Impression / Plan
-
Afib - new onset, rapid RVR.
- ECHO showed normal systolic functions.
- AF to sinus today
- [id number] VASc score is 3 (age, female),
- Will switch Heparin to Eliquis 2.5 mg BID (Age and weight)
- Will stop Diltiazem gtt and start PO 180 mg QD
Right ankle fracture - acute status post fall.
- Ortho - following
- Plan for conservative approach.
- No plan for surgery.
- Out patient follow up for possible 2 weeks [place] to assess falls and AF burden.
Osteoporosis - significant with kyphoplasty x 2.
- Chronic back pain managed by pain management on chronic Percocet
- Avoid NSAIDS and use Naloxegol sparingly.
Physical Exam
Vital Signs/Labs
Vital Signs
Temp Pulse Resp BP Pulse Ox
98.0 F 83 11 112/69 98
06/18/24 07:00 06/18/24 06:15 06/18/24 06:15 06/18/24 06:00 06/18/24 06:15
06/17/24 06/18/24 06/19/24
06:59 06:59 06:59
Actual Weight 59 kg
06/18/24 03:59
06/18/24 03:59
PT 14.6 Sec (11.4-14.6) 06/18/24 03:59
INR 1.16 06/18/24 03:59
APTT 87.8 Sec (23.4-35.0) H 06/18/24 03:59
Magnesium 2.1 mg/dl (1.6-2.3) 06/18/24 00:20
Triglycerides 93 mg/dl (10-149) 06/18/24 03:59
LDL Cholesterol, Calc 71 mg/dl 06/18/24 03:59
VLDL Cholesterol, Calc 18 mg/dl (0-30) 06/18/24 03:59
HDL Cholesterol 64 mg/dl 06/18/24 03:59
LAB Results
06/17/24 06/17/24 06/17/24
11:45 21:06 22:58
Troponin I 0.101 H* 0.084 H* Cancelled
06/18/24
00:14
Troponin I 0.086 H*
Physical Exam
Constitutional: No acute distress and Comfortable
EENT: Anicteric and Moist mucous membranes
Cardiovascular: Rhythm & rate is regular, Pedal edema is absent, JVD pressure is normal and Systolic murmur absent
Respiratory: Respiratory effort normal, Lungs clear to auscul., Wheeze Absent and Crackles Absent
GI: Soft, Flat, Non tender and Normal bowel sounds
Neuro/Psych: Alert, Oriented and AO x 3
Data Reviewed
-
Date of Service: June 18, 2024
Medical Decision Making: Reviewed Test Results, Independent Historian Assessment, Test Interpretation and Review of Case with other Provider
EKG: Tracing Personally Visualized and interpreted
Echo: Report Reviewed by me
Labs: Labs Reviewed by me
Old Records: Reviewed
[2024-06-18] MEDS: DULCOLAX 10 MG RECTAL (10:10)
[2024-06-18] MEDS: MILK OF MAGNESIA 30 ML PO (10:10)
[2024-06-18] MEDS: CARDIZEM CD 180 MG PO (11:49)
[2024-06-18] MEDS: ELIQUIS 2.5 MG PO ×2 (11:49→20:54)
--- NOTE | 2024-06-18 12:40 | PTCARENOTE ---
Pt reporting severe constipation; Fleet enema given overnight and produced a small/smear BM, however Pt remained uncomfortble. Miralax, MoM, Bisacodyl Supp and Tap Water Enema administered in the AM - Large BM x 1. Pt reported relief from
constipation/discomfort. Will continue to monitor and assess.
[2024-06-18] MEDS: NSS (PRESERVATIVE FREE) 0.25 ML IV (12:58)
[2024-06-18] MEDS: ATIVAN 0.5 MG IV (12:58)
[2024-06-18] MEDS: XALATAN OPHTHALMIC SOLUTION 1 DROP RIGHT EYE (20:50)
[2024-06-18] MEDS: OCUFLOX 1 DROP LEFT EYE (20:51)
[2024-06-18] MEDS: SENOKOT 8.6 MG PO (20:54)
[2024-06-18] MEDS: TYLENOL 1000 MG PO (20:54)
[2024-06-18] MEDS: DESYREL 25 MG PO (21:34)
[2024-06-19] VITALS (12 sets, daily range): BP systolic 93–136; BP diastolic 52–79; PULSE 88–136; O2SAT 96
[2024-06-19] MEDS: TYLENOL PO (05:08)
[2024-06-19 05:13] LABS: % Basophils 1.2 % (0-2); % Eosinophils 10.6 % (0-6); % Immature Granulocytes 0.3 % (0-0.5); % Lymphocytes 23.7 % (20.5-51.1); % Monocytes 9.4 % (1.7-9.3); % Neutrophils 54.8 % (42.2-75.2); Absolute Basophils 0.1 10^3/uL (0-0.2); Absolute Eosinophils 0.7 10^3/uL (0-0.7); Absolute Lymphocytes 1.6 10^3/uL (1.2-3.4); Absolute Monocytes 0.6 10^3/uL (0.1-0.6); Absolute Neutrophils 3.7 10^3/uL (1.4-6.5); Hematocrit 29.5 % (37.0-47.0); Hemoglobin 10.1 g/dL (12.0-16.0); Mean Corp Hgb Conc. 34.2 g/dL (33.0-37.0); Mean Corpuscular Hgb 31.9 pg (27.0-31.0); Mean Corpuscular Volume 93.1 fL (81.0-99.0); Mean Platelet Volume 10.5 fL (7.4-10.4); Nucleated Red Blood Cells % 0 %; Platelet Count 202 10^3/uL (130-400); Red Blood Cell Count 3.17 10^6/uL (4.20-5.40); Red Cell Dist. Width 13.1 % (11.5-14.5); White Blood Cell Count 6.8 10^3/uL (4.8-10.8)
[2024-06-19 05:32] LABS: Blood Urea Nitrogen 22 mg/dl (7-17); Calcium 8.4 mg/dl (8.4-10.2); Carbon Dioxide 23 mmol/L (22-30); Chloride 106 mmol/L (98-107); Estimated Creatinine Clearance 47 ml/min; Glucose 98 mg/dl (70-99); Sodium 138 mmol/L (135-145); eGFR > 60.00
--- NOTE | 2024-06-19 08:24 | W.PN.UPDATE ---
Update Note
Progress Note Update
High tide fracture boot in place and DNVI. Maintain NWB right lower extremity, ice and elevate and follow up with orthopedics 2 weeks for xray in office.
[2024-06-19] MEDS: VITAMIN B-12 1000 MCG PO (08:36)
[2024-06-19] MEDS: SENOKOT 8.6 MG PO ×2 (08:36→20:21)
[2024-06-19] MEDS: FOLVITE 1 MG PO (08:36)
[2024-06-19] MEDS: MAGNESIUM OXIDE 250 MG PO (08:37)
[2024-06-19] MEDS: MIRALAX 17 GRAMS PO (08:37)
[2024-06-19] MEDS: ELIQUIS 2.5 MG PO ×2 (08:37→20:21)
[2024-06-19] MEDS: PROTONIX 40 MG PO (08:37)
[2024-06-19] MEDS: CARDIZEM CD 180 MG PO (08:37)
[2024-06-19] MEDS: ASPIR LOW (ENTERIC COATED) 81 MG PO (08:37)
--- NOTE | 2024-06-19 09:06 | W.PN.HOSP.TC ---
Today's Communication/Plan
-
Pain control. PT OT. manager interventional for discharge disposition.
Assessment / Plan
Assessment / Plan
Physical exam:
General: Acute on chronically ill
HEENT: Normocephalic, Atraumatic and Moist Mucous Membranes
Respiratory: Clear to Auscultation; Negative Wheezes, Rales or Rhonchi
Cardiac: Regular Rhythm and S1/S2
GI: Soft, Nontender and Nondistended
Musculoskeletal: mild tender in ankle area. No Clubbing, No Cyanosis and No Edema
Neuro: Awake, Alert and Oriented
Psych: Calm
A/P:
Atrial fibrillation with ventricular response, new onset:
On IV heparin drip-switched to Eliquis
On IV Cardizem drip-switched to oral Cardizem 180 mg daily
Converted to normal sinus rhythm
Echo with EF 60 to 65%
Cardiology consult appreciated
PT OT eval
manager interventional for discharge disposition
Discussed with daughter at bedside today on 06/19
Right ankle fracture:
Likely due to trauma and osteoporosis both.
Orthopedic consult appreciated
Plan for conservative approach and outpatient follow-up with Ortho
PT OT eval
Likely osteoporosis/kyphoplasty x 2 in the past:
Continue pain control
Chronic pain and opioid dependence:
I was planning to hold Percocet but she says that she is taking this consistently as outpatient, so we will continue now.
I discussed side effects of opioids and she is agreeable to taper off as outpatient.
Constipation:
Continue bowel regimen
Will need to restart her other medications for bowel regimen upon discharge as well but will need to be caution with medication interactions as well.
Water enema yesterday and worked well yesterday.
Nausea:
Continue antiemetics and add some small dose of Ativan for anxiety and helped with nausea as well. No benzodiazepines moving forward to avoid dependence and or oversedation unless needed sparingly.
Bowel regimen as above and limit medications that can worsen nausea
Continue oral PPI
DVT prophylaxis:
Eliquis
CODE STATUS:
DNR
Anticipated Discharge: 24 - 48 hours
Subjective/Interval History
-
Date of Service: June 19, 2024
Patient pain is better but has some ambulatory dysfunction. No chest pain or shortness of breath. Afebrile
Objective Data
-
Labs:
Laboratory Results
06/19/24
04:55
WBC 6.8
Hgb 10.1 L
Hct 29.5 L
Plt Count 202
Sodium 138
Potassium 4.0
Chloride 106
Carbon Dioxide 23
BUN 22 H
Creatinine 0.8
Glucose 98
Calcium 8.4
Vital Signs:
Vital Signs
Temp Pulse Resp BP Pulse Ox
98.7 F 85 25 127/68 96
06/19/24 03:00 06/19/24 08:37 06/19/24 08:00 06/19/24 08:37 06/19/24 08:00
I&O
06/18/24 06/19/24 06/20/24
06:59 06:59 06:59
Intake Total 360 / 360 240 / 240
Output Total 400 / 400
Balance -40 / -40 240 / 240
[2024-06-19] MEDS: DILAUDID 0.25 MG IV ×2 (14:28→22:17)
[2024-06-19] MEDS: PERCOCET 5/325 1 TABLET PO (20:30)
[2024-06-19] MEDS: DESYREL 25 MG PO (20:31)
[2024-06-19] MEDS: XALATAN OPHTHALMIC SOLUTION 1 DROP RIGHT EYE (20:31)
[2024-06-19] MEDS: OCUFLOX 1 DROP LEFT EYE (20:32)
[2024-06-20 03:51] VITALS: BP 131/76
[2024-06-20 06:00] VITALS: BMI 21.8
[2024-06-20 07:29] VITALS: BP 123/74
[2024-06-20 07:58] LABS: Hemoglobin 10.6 g/dL (12.0-16.0); Mean Corp Hgb Conc. 34.2 g/dL (33.0-37.0); Mean Corpuscular Hgb 32.9 pg (27.0-31.0); Mean Corpuscular Volume 96.3 fL (81.0-99.0); Mean Platelet Volume 10.6 fL (7.4-10.4); Platelet Count 236 10^3/uL (130-400); Red Blood Cell Count 3.22 10^6/uL (4.20-5.40); Red Cell Dist. Width 13.2 % (11.5-14.5); White Blood Cell Count 7.6 10^3/uL (4.8-10.8)
[2024-06-20 08:24] LABS: Blood Urea Nitrogen 22 mg/dl (7-17); Calcium 8.7 mg/dl (8.4-10.2); Carbon Dioxide 26 mmol/L (22-30); Chloride 104 mmol/L (98-107); Estimated Creatinine Clearance 42 ml/min; Glucose 93 mg/dl (70-99); Potassium 4.3 mmol/L (3.5-5.1); Sodium 139 mmol/L (135-145); eGFR > 60.00
[2024-06-20] MEDS: MAGNESIUM OXIDE 250 MG PO (08:29)
[2024-06-20] MEDS: VITAMIN B-12 1000 MCG PO (08:29)
[2024-06-20] MEDS: ASPIR LOW (ENTERIC COATED) 81 MG PO (08:29)
[2024-06-20] MEDS: FOLVITE 1 MG PO (08:30)
[2024-06-20] MEDS: SENOKOT 8.6 MG PO ×2 (08:30→19:16)
[2024-06-20] MEDS: MIRALAX 17 GRAMS PO (08:30)
[2024-06-20] MEDS: PROTONIX 40 MG PO (08:30)
[2024-06-20] MEDS: CARDIZEM CD 180 MG PO (08:30)
[2024-06-20] MEDS: ELIQUIS 2.5 MG PO ×2 (08:30→19:17)
[2024-06-20 11:06] VITALS: BP 111/59
--- NOTE | 2024-06-20 11:33 | W.PN.HOSP.TC ---
Addendum entered and electronically signed by Erasmo Lofton DO 06/20/24 15:48:
Acute nonischemic myocardial injury -unclear etiology. Asymptomatic.
Moderate protein/calorie malnutrition of chronic illness
Original Note:
Today's Communication/Plan
-
Discharge planning
Assessment / Plan
Assessment / Plan
Gen-AAOx3, NAD
HEENT-NC, AT, anicteric, clear oral mm
Neck-supple
CV-reg, no M, +S1/S2
Lungs-clear B/L
Abd-soft, NT, ND
Ext-no edema
Musculoskeletal-no cyanosis, clubbing, right lower extremity Cam boot
Skin-warm and dry
Neuro-grossly non-focal
Psych-calm, cooperative
Atrial fibrillation with ventricular response, new onset:
Continue Eliquis, Cardizem.
Converted to normal sinus rhythm
Echo with EF 60 to 65%
Cardiology consult appreciated
PT OT eval
used car sales manager for discharge disposition
Discussed with daughter at bedside today on 06/19
Right ankle fracture: Continue cam boot.
Likely due to trauma and osteoporosis both.
Orthopedic consult appreciated
Plan for conservative approach and outpatient follow-up with Ortho
PT OT eval
Likely osteoporosis/kyphoplasty x 2 in the past:
Continue pain control
Chronic pain and opioid dependence:
I was planning to hold Percocet but she says that she is taking this consistently as outpatient, so we will continue now.
I discussed side effects of opioids and she is agreeable to taper off as outpatient.
Constipation:
Continue bowel regimen
Will need to restart her other medications for bowel regimen upon discharge as well but will need to be caution with medication interactions as well.
Water enema yesterday and worked well yesterday.
Nausea:
Continue antiemetics and add some small dose of Ativan for anxiety and helped with nausea as well. No benzodiazepines moving forward to avoid dependence and or oversedation unless needed sparingly.
Bowel regimen as above and limit medications that can worsen nausea
Continue oral PPI
DVT prophylaxis:
Eliquis
CODE STATUS:
DNR
Dispo -awaiting SNF placement. Case management aware. Patient requesting vaccination with influenza, pneumonia, tetanus, RSV.
Anticipated Discharge: Within 24 hours
Subjective/Interval History
-
Date of Service: June 20, 2024
Patient seen and examined. No complaints.
Objective Data
-
Labs:
Laboratory Results
06/20/24
07:25
WBC 7.6
Hgb 10.6 L
Hct 31.0 L
Plt Count 236
Sodium 139
Potassium 4.3
Chloride 104
Carbon Dioxide 26
BUN 22 H
Creatinine 0.9
Glucose 93
Calcium 8.7
Vital Signs:
Vital Signs
Temp Pulse Resp BP Pulse Ox
98 F 83 18 111/59 96
06/20/24 11:06 06/20/24 11:06 06/20/24 11:06 06/20/24 11:06 06/20/24 11:06
I&O
06/19/24 06/20/24 06/21/24
06:59 06:59 06:59
Intake Total 240 / 240 480 / 480
Balance 240 / 240 480 / 480
Review of Systems
-
History Source: Patient
All other systems: Reviewed and negative
[2024-06-20 12:35] VITALS: BP 111/59; PULSE 83
[2024-06-20] MEDS: ADACEL 0.5 ML IM (12:48)
--- NOTE | 2024-06-20 12:57 | CM ---
Addendum entered by Shelby Hargrove 06/20/24 16:11:
Spoke with Gayathri at [facility].
Bed available at [facility] tomorrow.
Daughter will transport.
[facility]
report# [phone]

Addendum entered by Shelby Hargrove 06/20/24 14:32:
Additional skilled referrals placed.
left VM at [facility] and [facility].
Await bed availability.
Original Note:
Patient seen bedside.
IA completed.
Patient lives alone in a 2 story home with 1st floor set up.
Patient independent prior to admission without assistive devices.
Patient drives.
Patient Has not had VN or skilled rehab in the past.
PT/OT recommending skilled rehab.
Discussed with patient and daughter referrals placed.
PCP; Dr Hilton
Pharmacy: [facility]
Plan: skilled rehab once bed available. No auth requireed.
--- NOTE | 2024-06-20 13:00 | PTCARENOTE ---
06/20-Patient now refuses telemetry stating she doesn't need it anymore. Educated on Why we do our Telemetry Protocol for the time we do. She verbalized understanding but still refuses it. Patient has been NSR this shift and previous shifts
consistently. Notified Physician who states she can keep it off at this time. Documented as Patient refuses Telemetry.
[2024-06-20] MEDS: PREVNAR 20 0.5 ML IM (13:45)
[2024-06-20] MEDS: FLUAD (65 yr+) 2024-2025 FORMULA 0.5 ML IM (13:47)
--- NOTE | 2024-06-20 15:01 | PN.CDI ---
CDI
- -
CDI:
Physician Documentation Request
Admit Date: 06/17/24 15:50
Dear Doctor Kirsty,
Patient is admitted with new onset atrial fibrillation and Right ankle fracture.
Troponin resulted as follows:
Laboratory Tests
06/17/24 06/17/24 06/18/24
11:45 21:06 00:14
Troponin I 0.101 H* 0.084 H* 0.086 H*
Could you please provide a diagnosis that supports the above lab abnormalities and additional evaluation/monitoring:
Non ischemic myocardial injury
Abnormal lab value clinically insignificant
Other
Use of terms such as suspected, likely, concern for, or probable (associated with a specific diagnosis that is being evaluated, monitored, or treated as if it exists) are acceptable and can be coded in the inpatient setting, when documented at the
time of discharge.
Thank you,
Venita Dumas RN, BSN
CDI Specialist
tiger text
Please use your independent medical judgment in providing your response.
--- NOTE | 2024-06-20 15:04 | PN.CDI ---
CDI
- -
CDI:
Physician Documentation Request
Admit Date: 06/17/24 15:50
Dear Doctor Kirsty
06/18 RD note states ' Chart review due to consult pt weight loss.....During visit RD able to visualize temporal wasting, apparent ribs, orbital area sunken in, protrusion of clavical. With weight loss of >7.5% in 3 months and observed muscle and fat
wasting pt meets AND/ASPEN criteria for moderate protein calorie malnutrition of chronic illness'
Based on the above information and your assessment, which of the following most accurately represents the patient's nutritional status?
Moderate Malnutrition
No nutritional deficiency
Other (please specify)Unable to determine
[place] Criteria ([facility] Hospitalist 2017)
2 or more criteria must be present for either
non severe or severe malnutrition
Note that the criteria differs related to the
presence of an acute or chronic illness
Acute Illness Chronic Illness
Energy Intake Non Severe: <75% for >7 days Non Severe: <75% for >1 month
Severe: <50% for >5 days Severe: <75% for >1 month
Weight Loss Non Severe: 1-2% over 1 week Non Severe: 5% over 1 month
5% over 1 month 7.5% over 3 months
7.5% over 3 months 10% over 6 months
1 year N/A 20% over 1 year
Severe: >2% over 1 week Severe: >5% over 1 month
>5% over 1 month >7.5% over 3 months
>7.5% over 3 months >10% over 6 months
1 year N/A >20% over 1 year
Body Fat Non Severe: Mild Decrease Non Severe: Mild Loss
Severe: Moderate Decrease Severe: Severe Loss
Muscle Mass Non Severe: Mild Decrease Non Severe: Mild Loss
Severe: Moderate Decrease Severe: Severe Loss
Fluid Accumulation Non Severe: Mild Accumulation Non Severe: Mild Accumulation
Severe: Moderate to severe Severe: Moderate to severe
accumulation accumulation
Reduced Training Designer Strength Non Severe: N/A Non Severe: N/A
Severe: Measurably reduced Severe: Measurably reduced
Use of terms such as suspected, likely, concern for, or probable (associated with a specific diagnosis that is being evaluated, monitored, or treated as if it exists) are acceptable and can be coded in the inpatient setting, when documented at the
time of discharge.
Thank you,
Venita Dumas RN, BSN
CDI Specialist
tiger text
Please use your independent medical judgment in providing your response.
--- NOTE | 2024-06-20 15:30 | PTCARENOTE ---
06/20: Patient requests Percocet because she states she 'feels like a little withdrawal.' When asked what she's feeling, she states, 'just I know when it happens. I feel a little more anxious.' Patient denies chills, GI upset, SOB, CP or any
other withdrawal S/S besides some mild anxiety at this time. Patient's prescription for Percocet 5-325mg PO is for Q4 PRN, but she states she takes it regularly regardless of pain level 6 or 7 times daily. She states last regular use was the day
she came in, 06/17. Patient denies any current withdrawal symptoms except increased anxiety at this time. Daughter at bedside confirms opiate misuse. Patient also denies pain except for a 2/10 in the R-ankle. Educated patient on relaxation
techniques, S/S of Opiate withdrawal to report immediately. She verbalized understanding. Initiated COWS Assessment.
[2024-06-20 15:34] VITALS: BP 109/64
[2024-06-20] MEDS: PERCOCET 5/325 1 TABLET PO (19:16)
[2024-06-20 19:31] VITALS: BP 117/63
[2024-06-20] MEDS: DESYREL 25 MG PO (20:39)
[2024-06-20] MEDS: XALATAN OPHTHALMIC SOLUTION 1 DROP RIGHT EYE (20:41)
[2024-06-20] MEDS: OCUFLOX 1 DROP LEFT EYE (20:41)
--- NOTE | 2024-06-20 20:53 | PTCARENOTE ---
Reported by dayshift nurse that patient refusing to wear tele monitor. Patients MD made aware. Patient continues to refuse tele monitor this shift despite multiple attempts and education. Patient also refusing to wear CAM boot in bed despite
education on risks.
[2024-06-21] MEDS: PERCOCET 5/325 1 TABLET PO ×2 (01:39→09:41)
[2024-06-21 06:00] VITALS: BMI 21.9
[2024-06-21 07:35] VITALS: BP 149/78
[2024-06-21] MEDS: SENOKOT 8.6 MG PO (07:55)
[2024-06-21] MEDS: MIRALAX 17 GRAMS PO (07:55)
[2024-06-21] MEDS: FOLVITE 1 MG PO (07:55)
[2024-06-21] MEDS: ELIQUIS 2.5 MG PO (07:55)
[2024-06-21] MEDS: PROTONIX 40 MG PO (07:55)
[2024-06-21] MEDS: VITAMIN B-12 1000 MCG PO (07:55)
[2024-06-21] MEDS: MAGNESIUM OXIDE 250 MG PO (07:55)
[2024-06-21] MEDS: CARDIZEM CD 180 MG PO (07:55)
--- NOTE | 2024-06-21 08:59 | W.DS.TRANS ---
DC Summary - Brand Marketing Manager
-
Discharge Instructions:
Sleep Apnea Risk Low
Discharge Diagnosis/Procedures Right ankle fracture, rapid atrial fibrillation
Diet Low Cholesterol,Low Fat,2 Gram Sodium
Activity With assistance,As tolerated
Driving Restrictions No driving
Bathing Restrictions None
Instructions:
Stand-Alone Forms:
Changes to Home Medications: No
Discharge Medications:
DC Medications w/original date entered in [employer]
bimatoprost 0.01 % eye drops (Lumigan) 1 drp RIGHT EYE HS Eye Condition 03/15/24
cyanocobalamin (vitamin B-12) 1,000 mcg tablet 1,000 mcg PO DAILY Supplement 03/15/24
zasctxpdhsfc-bljnntma-jxypyl tablet 1 tab PO DAILY Supplement 03/15/24
ofloxacin 0.3 % eye drops 1 drp LEFT EYE HS Eye Condition 03/15/24
polyethylene glycol 3350 17 gram oral powder packet (Miralax) 17 g PO DAILYPRN PRN constipation 03/15/24
trazodone 50 mg tablet 25 mg PO HS sleep 03/15/24
Calcium + D 1 gummy PO DAILY Supplement 04/22/24
denosumab 60 mg/mL subcutaneous syringe (Prolia) 60 mg SC [id number] hypercalcemia 04/22/24
folic acid 1 mg tablet 1 mg PO DAILY Supplement 04/22/24
magnesium 250 mg tablet 250 mg PO DAILY Supplement ##0 04/22/24
prochlorperazine maleate 10 mg tablet (Compazine) 10 mg PO Q8HPRN PRN Nausea/ vomiting 04/22/24
vit C 250 mg-vit E 90 mg-zinc 40 mg-copper 1 mj-wvbecw-vvgscp capsule (PreserVision AREDS-2) 1 tab PO DAILY Supplement 04/22/24
zinc acetate 50 mg (zinc) capsule 50 mg PO DAILY Supplement 04/22/24
Lactobac no.2-Bifidobac no.1-S. thermo 112.5 billion cell capsule (Visbiome) 1 cap PO DAILY Supplement ##0 04/28/24
acetaminophen 325 mg tablet 650 mg (2 x 325 mg) PO Q6HPRN PRN mild pain #14 tabs 04/28/24
naloxegol 25 mg tablet (Movantik) 25 mg PO DAILY Constipation 04/28/24
sodium phosphates 19 gram-7 gram/118 mL enema (Fleet Enema) 118 ml [place] DAILY PRN constipation 04/28/24
esomeprazole magnesium 40 mg capsule,delayed release 40 mg PO DAILY Gastrointestinal Issue 06/17/24
lidocaine 4 % topical patch (Lidocare) 1 patch topical DAILYPRN PRN neck Pain 06/17/24
linaclotide 145 mcg capsule (Linzess) 145 mcg PO DAILYPRN PRN constipation 06/17/24
melatonin 10 mg-thean 449uz-yqh-zlj ofsk-jvcb-yer tablet,immed-ext rel (Sleep3) 1 tab PO HS 06/18/24
apixaban 2.5 mg tablet (Eliquis) 2.5 mg PO BID #0 tabs 06/21/24
diltiazem HCl 180 mg capsule,extended release 24 hr 180 mg PO DAILY #0 caps 06/21/24
oxycodone-acetaminophen 5 mg-325 mg tablet 1 tab PO Q4HPRN PRN moderate to severe pain #5 tabs 06/21/24
Home Medication Changes
Pending Results: No
--- NOTE | 2024-06-21 09:05 | W.PN.HOSP.TC ---
Today's Communication/Plan
-
Discharge
Assessment / Plan
Assessment / Plan
Gen-AAOx3, NAD
HEENT-NC, AT, anicteric, clear oral mm
Neck-supple
CV-reg, no M, +S1/S2
Lungs-clear B/L
Abd-soft, NT, ND
Ext-no edema
Musculoskeletal-no cyanosis, clubbing, right lower extremity Cam boot
Skin-warm and dry
Neuro-grossly non-focal
Psych-calm, cooperative
Atrial fibrillation with ventricular response, new onset:
Continue Eliquis, Cardizem.
Converted to normal sinus rhythm
Echo with EF 60 to 65%
Cardiology consult appreciated
PT OT eval
health practice manager for discharge disposition
Discussed with daughter at bedside today on 06/19
Right ankle fracture: Continue cam boot.
Likely due to trauma and osteoporosis both.
Orthopedic consult appreciated
Plan for conservative approach and outpatient follow-up with Ortho
PT OT eval
Likely osteoporosis/kyphoplasty x 2 in the past:
Continue pain control
Chronic pain and opioid dependence
Opioid-induced constipation - Relistor ordered. She takes Movantik at home.
Nausea:
Continue antiemetics and add some small dose of Ativan for anxiety and helped with nausea as well. No benzodiazepines moving forward to avoid dependence and or oversedation unless needed sparingly.
Bowel regimen as above and limit medications that can worsen nausea
Continue oral PPI
DVT prophylaxis:
Eliquis
CODE STATUS:
DNR
Dispo -medically stable for discharge to SNF today. Updated daughter at the bedside.
32 minutes spent in discharge process.
Anticipated Discharge: Today
Subjective/Interval History
-
Date of Service: June 21, 2024
Patient seen and examined. Complaining of constipation.
Objective Data
-
Vital Signs:
Vital Signs
Temp Pulse Resp BP Pulse Ox
98.6 F 78 18 149/78 96
06/21/24 07:35 06/21/24 07:35 06/21/24 07:35 06/21/24 07:35 06/21/24 07:35
I&O
06/20/24 06/21/24 06/22/24
06:59 06:59 06:59
Intake Total 480 / 480 1110 / 1110
Balance 480 / 480 1110 / 1110
Review of Systems
-
History Source: Patient
All other systems: Reviewed and negative
[2024-06-21] MEDS: RELISTOR 12 MG SC (09:24)
[2024-06-21 09:39] VITALS: BP 123/65; PULSE 79
--- NOTE | 2024-06-21 09:43 | CM ---
Spoke with Silvana at [facility], bed not available to till 4 pm.
New PASSR to be sent. (03/21/24 update)
IMM completed.
Daughter will transport.
[facility]
report# [phone]
[2024-06-21 11:09] VITALS: BP 127/61
[2024-06-21 15:17] VITALS: BP 132/71
== END 2024-06-21 16:28 | DRG 543 ==
LOC: 4 WEST ACU 15:50
PROVIDERS: Emergency Medicine; Hospitalist; Nurse Practitioner; ADMITTING PHYSICIAN Internal Medicine; ATTENDING PHYSICIAN Hospitalist; CONSULT PHYSICIAN Internal Medicine; CONSULT PHYSICIAN Orthopaedic Surgery Hand Surgery; EMERGENCY PHYSICIAN Emergency Medicine; FAMILY PHYSICIAN Family Medicine
DX: M80.061A Age-related osteoporosis with current pathological fracture, right lower leg, initial encounter for fracture (principal); E44.0 Moderate protein-calorie malnutrition; F11.20 Opioid dependence, uncomplicated; I5A Non-ischemic myocardial injury (non-traumatic); Z66 Do not resuscitate; I48.91 Unspecified atrial fibrillation; K21.9 Gastro-esophageal reflux disease without esophagitis; K59.03 Drug induced constipation; T40.2X5A Adverse effect of other opioids, initial encounter; N18.9 Chronic kidney disease, unspecified; E78.00 Pure hypercholesterolemia, unspecified; K22.89 Other specified disease of esophagus; N81.6 Rectocele; G89.29 Other chronic pain; F32.A Depression, unspecified; G62.9 Polyneuropathy, unspecified; X50.1XXA Overexertion from prolonged static or awkward postures, initial encounter; W19.XXXA Unspecified fall, initial encounter; Z68.21 Body mass index [BMI] 21.0-21.9, adult; Z96.651 Presence of right artificial knee joint; Z88.5 Allergy status to narcotic agent; Z88.1 Allergy status to other antibiotic agents; Z88.0 Allergy status to penicillin; Z82.49 Family history of ischemic heart disease and other diseases of the circulatory system; Z79.82 Long term (current) use of aspirin; Z79.899 Other long term (current) drug therapy
CPT/HCPCS: 29515; 70450; 71046; 71250; 72125; 73610; 80048; 80053; 80061; 81003; 83036; 83735; 84484; 85025; 85027; 85610; 85730; 90715; 93005; 93306; 93880; 96361; 96365; 96366; 96367; 97116; 97163; 97166; 97530; 97535; 99285

== ENCOUNTER 2024-12-30 18:48 | Emergency (ER) | payer MEDICARE, BC, SELFPAY ==
[2024-12-30 18:51] VITALS: BP 139/106
[2024-12-30 19:06] LABS: % Basophils 1.2 % (0-2); % Eosinophils 2.1 % (0-6); % Immature Granulocytes 0.3 % (0-0.5); % Lymphocytes 28.6 % (20.5-51.1); % Monocytes 10.5 % (1.7-9.3); % Neutrophils 57.3 % (42.2-75.2); Absolute Basophils 0.1 10^3/uL (0-0.2); Absolute Eosinophils 0.1 10^3/uL (0-0.7); Absolute Lymphocytes 1.6 10^3/uL (1.2-3.4); Absolute Monocytes 0.6 10^3/uL (0.1-0.6); Absolute Neutrophils 3.3 10^3/uL (1.4-6.5); Hematocrit 32.9 % (37.0-47.0); Hemoglobin 11.2 g/dL (12.0-16.0); Mean Corpuscular Hgb 33.5 pg (27.0-31.0); Mean Corpuscular Volume 98.5 fL (81.0-99.0); Mean Platelet Volume 9.7 fL (7.4-10.4); Nucleated Red Blood Cells % 0 %; Platelet Count 181 10^3/uL (130-400); Red Blood Cell Count 3.34 10^6/uL (4.20-5.40); Red Cell Dist. Width 12.9 % (11.5-14.5); White Blood Cell Count 5.7 10^3/uL (4.8-10.8)
[2024-12-30 19:26] LABS: ALT (SGPT) 37 U/L (0-35); AST (SGOT) 45 U/L (14-36); Albumin 4.6 g/dl (3.5-5.0); Alkaline Phosphatase 81 U/L (38-126); Blood Urea Nitrogen 25 mg/dl (7-17); Calcium 9.4 mg/dl (8.4-10.2); Carbon Dioxide 27 mmol/L (22-30); Chloride 100 mmol/L (98-107); Glucose 120 mg/dl (70-99); Potassium 4.3 mmol/L (3.5-5.1); Sodium 136 mmol/L (135-145); Total Bilirubin 0.7 mg/dl (0.2-1.3); Total Protein 7.2 g/dl (6.3-8.2); eGFR > 60.00
[2024-12-30] MEDS: COMPAZINE 10 MG IV (22:28)
[2024-12-30] MEDS: NSS 1000 IV (22:29)
[2024-12-30 22:33] VITALS: BMI 25.1
[2024-12-30 22:34] VITALS: BP 135/90
[2024-12-30] MEDS: COMPAZINE 5 MG IV (23:35)
[2024-12-30] MEDS: PEPCID 20 MG IV (23:35)
[2024-12-31] MEDS: NSS 1000 IV (00:27)
[2024-12-31] MEDS: BENADRYL 25 MG IV (00:27)
--- NOTE | 2024-12-31 01:48 | ED.GENMED ---
History of Present Illness
General
Chief Complaint: Abdominal Symptoms
Time Seen by Provider: 12/30/24 21:48
History of Present Illness
History of Present Illness:
84-year-old female presents the emergency department for evaluation of nausea and vomiting beginning this morning. She is been unable to tolerate any p.o. food or fluids. She reports indigestion but denies any overt abdominal pain. Has had this
happen many times in the past and reportedly does well with Compazine and Benadryl. Did have an upper endoscopy performed in March 2024 showing no malignancies or ulcerations. She does maintain her acid reflux with a PPI currently
Past History
Past History
ED Past Medical History: Psychiatric (Anxiety) and Other (Osteoporosis, Chronic back pain, Hep A, Glaucoma. Vertebral fractures)
ED Past Surgical History: Cholecystectomy, Orthopedic (Left knee replacement, Right hand surgery), Tonsilectomy and Other (hernia repair X 2 hand surgery)
Social History
Tobacco: Non-smoker
Alcohol: None
Personal:
Living: with family
Review of Systems
Review of Systems
Allergies reviewed?: Yes
All Other Systems: ROS reviewed and negative except as documented in HPI and ROS
Phy Exam
Physical Exam
Physical Exam:
GEN: Well appearing, NAD, WDWN
HEENT: Oral mucosa moist, no scleral icterus
Cardiac: Regular rate
Lung: No respiratory distress, no tachypnea
Abdomen: Soft, grossly nontender
MSK: No gross deformity or injuries
Skin: Good color, no pallor or jaundice, no rashes
Neuro: AO x3, moves all extremities freely
Psych: Calm, cooperative
Course
Orders/Labs/Results
Orders:
Orders
12/30/24 18:59
Complete Blood Count/With Diff Urgent
Comprehensive Metabolic Panel Urgent
12/30/24 22:14
0.9% Sodium Chloride 1000 ml [Nss] 1,000 ml IV BOLUS
Prochlorperazine [Compazine] 10 mg IV NOW STA
12/30/24 23:30
Famotidine [Pepcid] 20 mg IV NOW STA
Prochlorperazine [Compazine] 5 mg IV NOW STA
12/31/24 00:13
HYDROmorphone [Dilaudid] 0.5 mg IV NOW STA
Ondansetron Injectable [Zofran] 4 mg IV NOW STA
12/31/24 00:19
0.9% Sodium Chloride 1000 ml [Nss] 1,000 ml IV BOLUS
Diphenhydramine [Benadryl] 25 mg IV NOW STA
Abnormal Lab Results
12/30/24
18:59
RBC 3.34 L 10^6/uL
(4.20-5.40)
Hgb 11.2 L g/dL
(12.0-16.0)
Hct 32.9 L %
(37.0-47.0)
MCH 33.5 H pg
(27.0-31.0)
Monocytes % 10.5 H %
(1.7-9.3)
BUN 25 H mg/dl
(7-17)
Glucose 120 H mg/dl
(70-99)
AST 45 H U/L
(14-36)
ALT 37 H U/L
(0-35)
12/30/24 18:59
12/30/24 18:59
Vital Signs
Initial and Last Documented VS:
Initial Vital Signs
Temp Pulse Resp BP Pulse Ox
98.2 F 86 16 139/106 95
12/30/24 18:51 12/30/24 18:51 12/30/24 18:51 12/30/24 18:51 12/30/24 18:51
Last Documented Vital Signs
Temp Pulse Resp BP Pulse Ox
98.2 F 88 16 135/90 96
12/30/24 18:51 12/30/24 22:34 12/30/24 22:34 12/30/24 22:34 12/30/24 22:45
MDM/Problems Addressed
MDM/Problems Addressed:
Workup unremarkable, patient required multiple doses of antiemetics but ultimately felt improved and was able to tolerate p.o. fluids without difficulty. Likely self-limited viral syndrome versus recurrence of chronic functional abdominal disorder
*Critical Care Note
Total Time (30-74mins, 75-104mins- exclusive of procedures): Not Applicable
ED Attending Note
-
Portions of this chart may have been created with voice recognition software.� Occasional wrong word or��sound alike� substitutions may have occurred due to the inherent limitations of voice recognition software.
Discharge Plan
Departure
Patient Disposition: Home (Routine Discharge)
Date of Disposition: 12/31/24
Time of Disposition: 01:48
Patient with high blood pressure during this ER visit?: No
Discharge Problem:
Nausea and vomiting
Instructions: Nausea and Vomiting, Adult (DC)
Prescriptions:
New
prochlorperazine maleate [Compazine] 10 mg tablet
10 mg PO Q8H PRN (Reason: nausea and vomiting) Qty: 20 0RF
No Action
trazodone 50 mg Tablet
25 mg PO HS
polyethylene glycol 3350 [Miralax] 17 gram Powder In Packet
17 g PO DAILYPRN PRN (Reason: constipation)
ofloxacin 0.3 % Drops
1 drp LEFT EYE HS
cyanocobalamin (vitamin B-12) 1,000 mcg Tablet
1,000 mcg PO DAILY
rcleypdkvjmr-dmhjvuqo-zzcohw Tablet
1 tab PO DAILY
Lumigan 0.01 % Drops
1 drp RIGHT EYE HS
zinc acetate 50 mg (zinc) Capsule
50 mg PO DAILY
prochlorperazine maleate [Compazine] 10 mg Tablet
10 mg PO Q8HPRN PRN (Reason: Nausea/ vomiting)
folic acid 1 mg Tablet
1 mg PO DAILY
magnesium 250 mg Tablet
250 mg PO DAILY Qty: 0
Prolia 60 mg/mL Syringe
60 mg SC [id number]
PreserVision AREDS-2 250-90-40-1 mg Capsule
1 tab PO DAILY
Calcium + D
1 gummy PO DAILY
Movantik 25 mg Tablet
25 mg PO DAILY
Fleet Enema 19-7 gram/118 mL Enema
118 ml [place] DAILY PRN (Reason: constipation)
Visbiome 112.5 billion cell Capsule
1 cap PO DAILY Qty: 0
acetaminophen 325 mg tablet
650 mg PO Q6HPRN PRN (Reason: mild pain) Qty: 14 0RF
esomeprazole magnesium 40 mg capsule,delayed release(DR/EC)
40 mg PO DAILY
Linzess 145 mcg Capsule
145 mcg PO DAILYPRN PRN (Reason: constipation)
lidocaine [Lidocare] 4 % adhesive patch,medicated
1 patch topical DAILYPRN PRN (Reason: neck Pain)
Sleep3 10-200-50 mg Tablet,Ir,Delayed Rel,Biphasic
1 tab PO HS
diltiazem HCl 180 mg Capsule,Extended Release 24hr
180 mg PO DAILY Qty: 0 0RF
Eliquis 2.5 mg Tablet
2.5 mg PO BID Qty: 0 0RF
oxycodone-acetaminophen 5-325 mg Tablet
1 tab PO Q4HPRN PRN (Reason: moderate to severe pain) Qty: 5 0RF
Referrals:
Lisy Hilton MD [Family Provider] -
Interventions
Interventions:
*Risk Screen - Suicide Last Done: 12/30/24 18:51
*General Assessment Last Done: 12/30/24 18:51
*Neglect/Abuse Screening Last Done: 12/30/24 18:51
*ED- Fall Risk Assessment Last Done: 12/30/24 18:51
*ED COVID-19 Vaccine History Last Done: 12/30/24 18:51
*Nursing Disposition Last Done: 12/31/24 02:00
XF-Trnner-Vrgwtwauxm Assessment Last Done: 12/30/24 22:33
Discharge Date and Time
Discharge Date/Time: 12/31/24 02:01
Print Language: UKRAINIAN
== END 2024-12-31 02:01 | disposition home or self-care (01) ==
LOC: EMR 18:48
PROVIDERS: Student in an Organized Health Care Education/Training Program; EMERGENCY PHYSICIAN Emergency Medicine; FAMILY PHYSICIAN Family Medicine
DX: R11.2 Nausea with vomiting, unspecified (principal)
CPT/HCPCS: 99284; 96374; 96375 ×4; 96376; 96361 ×2; 80053; 85025

== ENCOUNTER 2024-12-31 12:55 | Emergency (ER) | payer MEDICARE, BC, SELFPAY ==
[2024-12-31 12:57] VITALS: BP 157/85
[2024-12-31 13:43] VITALS: BMI 22.3
[2024-12-31 13:45] VITALS: BP 160/83
[2024-12-31 14:00] VITALS: BP 147/93
[2024-12-31] MEDS: ATIVAN 0.5 MG IV (14:01)
[2024-12-31] MEDS: NSS 500 IV (14:02)
[2024-12-31 14:13] LABS: % Basophils 1.3 % (0-2); % Immature Granulocytes 0.2 % (0-0.5); % Lymphocytes 25.8 % (20.5-51.1); % Monocytes 12.9 % (1.7-9.3); % Neutrophils 57.8 % (42.2-75.2); Absolute Basophils 0.1 10^3/uL (0-0.2); Absolute Eosinophils 0.1 10^3/uL (0-0.7); Absolute Lymphocytes 1.4 10^3/uL (1.2-3.4); Absolute Monocytes 0.7 10^3/uL (0.1-0.6); Absolute Neutrophils 3.1 10^3/uL (1.4-6.5); Hematocrit 33.5 % (37.0-47.0); Hemoglobin 11.4 g/dL (12.0-16.0); Mean Corpuscular Hgb 33.2 pg (27.0-31.0); Mean Corpuscular Volume 97.7 fL (81.0-99.0); Mean Platelet Volume 10.1 fL (7.4-10.4); Nucleated Red Blood Cells % 0 %; Platelet Count 185 10^3/uL (130-400); Red Blood Cell Count 3.43 10^6/uL (4.20-5.40); Red Cell Dist. Width 12.8 % (11.5-14.5); White Blood Cell Count 5.4 10^3/uL (4.8-10.8)
[2024-12-31 14:26] LABS: ALT (SGPT) 33 U/L (0-35); AST (SGOT) 42 U/L (14-36); Albumin 3.9 g/dl (3.5-5.0); Alkaline Phosphatase 73 U/L (38-126); Blood Urea Nitrogen 20 mg/dl (7-17); Calcium 9.5 mg/dl (8.4-10.2); Carbon Dioxide 27 mmol/L (22-30); Chloride 103 mmol/L (98-107); Estimated Creatinine Clearance 44 ml/min; Glucose 116 mg/dl (70-99); Lipase 40 U/L (23-300); Potassium 4.2 mmol/L (3.5-5.1); Sodium 135 mmol/L (135-145); Total Bilirubin 0.7 mg/dl (0.2-1.3); Total Protein 6.4 g/dl (6.3-8.2); eGFR > 60.00
[2024-12-31 14:53] VITALS: BP 147/90
[2024-12-31 15:00] VITALS: BP 160/82
--- NOTE | 2024-12-31 15:09 | ED.GENMED ---
History of Present Illness
General
Chief Complaint: Abdominal Symptoms
Source: patient
Exam Limitations: none
Time Seen by Provider: 12/31/24 13:13
Nursing documentation reviewed up to this point in time: agreed with
History of Present Illness
History of Present Illness:
84 y/o h/o PAF on eliquis
peripheral neuropathy
esophageal motility problem, constipation
chronic opiate use due to back pain/compression fx
here with anxiety feeling, nauesa/vomiting
was here overnight and discharged earlier this morning for same
was describing flrae up of her typical nausea/vomiting/anxious feeling that she gets from time to time, every month or so, and has been seen here and also at [facility]
she usualy gets fluids, compazine, benadryl and does better
she felt ok when she went home last night after this, plus diilaudid and pepcid
but really has been quite shaky, anxious, irritable, cant get comfortable, in distress
worse than her daughter is used to seeing her
she thinks maybe she is going to
Past History
Past History
ED Past Medical History: Psychiatric (Anxiety) and Other (Osteoporosis, Chronic back pain, Hep A, Glaucoma. Vertebral fractures)
ED Past Surgical History: Cholecystectomy, Orthopedic (Left knee replacement, Right hand surgery), Tonsilectomy and Other (hernia repair X 2 hand surgery)
Social History
Tobacco: Non-smoker
Alcohol: None
Personal:
Living: with family
Review of Systems
Review of Systems
Allergies reviewed?: Yes
All Other Systems: Not applicable
Phy Exam
Physical Exam
Physical Exam:
GENERAL: Alert intermittently shaky, anxious,
EYE: pupils equal and reactive
NECK: Supple
ENT: o/p clr, mmm.
CARDIAC: Regular rate and rhythm . No edema
LUNGS: Clear breath sounds bilaterally, no acute respiratory distress, no wheezes/rales/rhonchi
ABDOMEN: Soft, mildly distended without focal tenderness, no r/g, no cvat, normal bowel sounds
NEUROLOGICAL: Alert and oriented, no focal neuro deficits
SKIN: Warm and dry, skin intact.
MUSCULOSKELETAL: No edema, well perfused. neg nadia's sign
PSYCH: Fairly anxious, no suicidal thoughts
Course
Orders/Labs/Results
Orders:
Orders
12/31/24 13:38
0.9% Sodium Chloride 500 ml [Nss] 500 ml IV BOLUS
Lorazepam [Ativan] 0.5 mg IV NOW STA
Obstruct Series W/PA Chest [CR Obstruct Series W/pa Chest] Urgent
Comment:
Reason For Exam: chronic constipation, vomitnig
12/31/24 13:57
Complete Blood Count/With Diff Urgent
Comprehensive Metabolic Panel Urgent
Lipase Urgent
12/31/24 15:01
Electrocardiogram (*1) Urgent
Reason for Study: Palpitations
EKG- Treatment ONCE
Abnormal Lab Results
12/31/24
13:57
RBC 3.43 L 10^6/uL
(4.20-5.40)
Hgb 11.4 L g/dL
(12.0-16.0)
Hct 33.5 L %
(37.0-47.0)
MCH 33.2 H pg
(27.0-31.0)
Absolute Monos (auto) 0.7 H 10^3/uL
(0.1-0.6)
Monocytes % 12.9 H %
(1.7-9.3)
BUN 20 H mg/dl
(7-17)
Glucose 116 H mg/dl
(70-99)
AST 42 H U/L
(14-36)
12/31/24 13:57
12/31/24 13:57
Vital Signs
Pulse: 80
Blood pressure: 162/95
Initial and Last Documented VS:
Initial Vital Signs
Temp Pulse Resp BP Pulse Ox
36.8 C 78 16 157/85 95
12/31/24 12:57 12/31/24 12:57 12/31/24 12:57 12/31/24 12:57 12/31/24 12:57
Last Documented Vital Signs
Temp Pulse Resp BP Pulse Ox
36.8 C 74 11 160/83 95
12/31/24 12:57 12/31/24 13:45 12/31/24 13:45 12/31/24 13:45 12/31/24 13:45
ED Attending Note
-
Portions of this chart may have been created with voice recognition software.� Occasional wrong word or��sound alike� substitutions may have occurred due to the inherent limitations of voice recognition software.
Discharge Plan
Departure
Patient Disposition: Home (Routine Discharge)
Date of Disposition: 12/31/24
Time of Disposition: 16:57
Discharge Problem:
Anxiety, Constipation, Nausea
Instructions: Constipation, Adult (DC), Anxiety in adults - ED discharge instructions, BLOOD PRESSURE
Prescriptions:
New
lorazepam [Ativan] 0.5 mg tablet
0.5 mg PO DAILY PRN (Reason: anxiety) Qty: 1 0RF
sertraline [Zoloft] 25 mg tablet
25 mg PO DAILY Qty: 14 0RF
No Action
trazodone 50 mg Tablet
25 mg PO HS
polyethylene glycol 3350 [Miralax] 17 gram Powder In Packet
17 g PO DAILYPRN PRN (Reason: constipation)
ofloxacin 0.3 % Drops
1 drp LEFT EYE HS
cyanocobalamin (vitamin B-12) 1,000 mcg Tablet
1,000 mcg PO DAILY
gfednueverbo-lnbwjsba-tlcuef Tablet
1 tab PO DAILY
Lumigan 0.01 % Drops
1 drp RIGHT EYE HS
zinc acetate 50 mg (zinc) Capsule
50 mg PO DAILY
prochlorperazine maleate [Compazine] 10 mg Tablet
10 mg PO Q8HPRN PRN (Reason: Nausea/ vomiting)
folic acid 1 mg Tablet
1 mg PO DAILY
magnesium 250 mg Tablet
250 mg PO DAILY Qty: 0
Prolia 60 mg/mL Syringe
60 mg SC [id number]
PreserVision AREDS-2 250-90-40-1 mg Capsule
1 tab PO DAILY
Calcium + D
1 gummy PO DAILY
Movantik 25 mg Tablet
25 mg PO DAILY
Fleet Enema 19-7 gram/118 mL Enema
[address] DAILY PRN (Reason: constipation)
Visbiome 112.5 billion cell Capsule
1 cap PO DAILY Qty: 0
acetaminophen 325 mg tablet
650 mg PO Q6HPRN PRN (Reason: mild pain) Qty: 14 0RF
esomeprazole magnesium 40 mg capsule,delayed release(DR/EC)
40 mg PO DAILY
Linzess 145 mcg Capsule
145 mcg PO DAILYPRN PRN (Reason: constipation)
lidocaine [Lidocare] 4 % adhesive patch,medicated
1 patch topical DAILYPRN PRN (Reason: neck Pain)
Sleep3 10-200-50 mg Tablet,Ir,Delayed Rel,Biphasic
1 tab PO HS
diltiazem HCl 180 mg Capsule,Extended Release 24hr
180 mg PO DAILY Qty: 0 0RF
Eliquis 2.5 mg Tablet
2.5 mg PO BID Qty: 0 0RF
oxycodone-acetaminophen 5-325 mg Tablet
1 tab PO Q4HPRN PRN (Reason: moderate to severe pain) Qty: 5 0RF
prochlorperazine maleate [Compazine] 10 mg tablet
10 mg PO Q8H PRN (Reason: nausea and vomiting) Qty: 20 0RF
Referrals:
UNKNOWN - PT DOES,NOT KNOW [Unknown Provider] -
Activity Restrictions/Additional Instructions:
We are not entirely sure the cause of your symptoms. It could be stress and anxiety. I spoke with your doctor who recommended we start 25 mg Zoloft once a day. He will see you in the office this week. If you do not hear from them on Thursday for
an appointment you should call. I am sending you home with 1
Tablet of Ativan 0.5 mg that you can try if your anxiety is more intense. Please be sure not to mix this with the Percocet that you take. Please avoid trazodone at night if you are using the Ativan.
Is very important not to cause too much sedation.
Return for chest pain, shortness of breath, passing out, vomiting repeatedly, significant abdominal pain or any concern
Interventions
Interventions:
*Risk Screen - Suicide Last Done: 12/31/24 12:57
*General Assessment Last Done: 12/31/24 13:43
*Neglect/Abuse Screening Last Done: 12/31/24 12:57
*ED- Fall Risk Assessment Last Done: 12/31/24 13:43
*ED COVID-19 Vaccine History Last Done: 12/31/24 13:43
TQ-Yznuyn-Jirsqjmawj Assessment Last Done: 12/31/24 13:43
Discharge Date and Time
Print Language: ESTONIAN
[2024-12-31 16:38] VITALS: BP 170/93
== END 2024-12-31 17:18 | disposition home or self-care (01) ==
LOC: EMR 12:55
PROVIDERS: Physician Assistant; EMERGENCY PHYSICIAN Emergency Medicine; FAMILY PHYSICIAN Family Medicine
DX: K59.09 Other constipation (principal); G62.9 Polyneuropathy, unspecified; F41.9 Anxiety disorder, unspecified; R11.2 Nausea with vomiting, unspecified; M81.0 Age-related osteoporosis without current pathological fracture; H40.9 Unspecified glaucoma; I48.0 Paroxysmal atrial fibrillation; Z79.01 Long term (current) use of anticoagulants; Z79.891 Long term (current) use of opiate analgesic; Z90.49 Acquired absence of other specified parts of digestive tract; Z96.652 Presence of left artificial knee joint
CPT/HCPCS: 99283; 96374; 74022; 80053; 83690; 85025; 93005

== ENCOUNTER 2025-01-01 14:27 | Emergency (ER) | payer MEDICARE, BC, SELFPAY ==
[2025-01-01] VITALS (8 sets, daily range): BP systolic 147–168; BP diastolic 78–98; BMI 21.8
--- NOTE | 2025-01-01 16:24 | ED.GENMED ---
History of Present Illness
General
Chief Complaint: Abdominal Symptoms
Source: patient and family (daughter at bedside)
Exam Limitations: none
Time Seen by Provider: 01/01/25 16:05
Nursing documentation reviewed up to this point in time: agreed with
History of Present Illness
History of Present Illness:
84 yo female w h/o PAF onEliquis, chronic back pain on opioids, followed by pain management, states she takes 3-4 Percocet 325 mg daily, hx nausea/vomiting/anxiety, here for the 3rd time in 3 days for same problem: nausea, constipation.
Daughter states she cannot take Zofran or Pepcid 'they make me sick' can only take Compazine or Benadryl.
Since she left here yesterday, she has not vomited. Daughter states she's sticking her finger down her throat to try to vomit. Pt states this is because she feels so nauseous. She feels constipated, she gave herself an enema this a.m. and had a
'medium' sized BM.
Daughter at bedside states she is so anxious about her health. Pt states she did get rx for Zoloft and took first dose yesterday
Past History
Past History
ED Past Medical History: Psychiatric (Anxiety) and Other (Osteoporosis, Chronic back pain, Hep A, Glaucoma. Vertebral fractures)
ED Past Surgical History: Cholecystectomy, Orthopedic (Left knee replacement, Right hand surgery), Tonsilectomy and Other (hernia repair X 2 hand surgery)
Social History
Tobacco: Non-smoker
Alcohol: None
Personal:
Living: with family
Review of Systems
Review of Systems
Allergies reviewed?: Yes
All Other Systems: ROS reviewed and negative except as documented in HPI and ROS
Constitutional: Denies fever or chills
Respiratory: Denies trouble breathing
Cardiac: Denies chest pain
ABD/GI: Reports nausea; Denies abdominal pain, vomiting or diarrhea
: Denies dysuria, frequency or difficulty voiding
Musculoskeletal: Reports no symptoms
Skin: Reports no symptoms
Neurological: Reports no symptoms
Psychiatric: Reports anxiety
Phy Exam
Physical Exam
Physical Exam:
GENERAL: No acute distress. A&Ox3.
CONSTITUTIONAL: Afebrile.
EYES: clear, conjunctivae normal
ENMT: moist mucus membranes, Pharynx nl
RESPIRATORY: Regular respirations, nonlabored, lungs clear.
CARDIOVASCULAR: Regular rate and rhythm, no murmurs, no rubs.
GI: Soft, nontender, normal BS
MUSCULOSKELETAL: Moves with ease. Well perfused.
SKIN: Warm, dry, pink
PSYCH: Anxious mood and affect. Well kept, interactive and appropriate
NEUROLOGIC: Awake, alert and oriented. No focal neurological deficits
Course
Orders/Labs/Results
Orders:
Orders
01/01/25 14:32
EKG [Electrocardiogram (*1)] Urgent
Reason for Study: Abdominal Pain
EKG- Treatment ONCE
01/01/25 16:59
Iohexol [Omnipaque] 50 ml .ROUTE .[facility]
Iohexol [Omnipaque] See Protocol PO NOW STA
01/01/25 17:00
CT Abd/pel W Iv And Oral Contr Urgent
Comment:
Reason For Exam: nausea and vomiting
01/01/25 17:03
0.9% Sodium Chloride 1000 ml [Nss] 1,000 ml IV BOLUS
01/01/25 17:19
Urinalysis Reflex To Culture Urgent
Urine Microscopic Reflex Cult Urgent
Urine Culture Urgent
NAVEED Source: U
Specimen Description:
01/01/25 20:53
Sucralfate [Carafate] 1 gram PO NOW STA
Abnormal Lab Results
01/01/25
17:19
Leukocyte Esterase Rfl 1+ A
(Negative)
Vital Signs
Initial and Last Documented VS:
Initial Vital Signs
Temp Pulse Resp BP Pulse Ox
98.4 F 89 18 166/79 99
01/01/25 14:30 01/01/25 14:30 01/01/25 14:30 01/01/25 14:30 01/01/25 14:30
Last Documented Vital Signs
Temp Pulse Resp BP Pulse Ox
98.4 F 78 16 168/98 100
01/01/25 14:30 01/01/25 21:00 01/01/25 21:00 01/01/25 21:00 01/01/25 21:00
MDM/Problems Addressed
Differential Diagnosis Includes:
PUD, gastritis, diverticulitis
MDM/Problems Addressed:
84 yo female w h/o PAF onEliquis, chronic back pain on opioids, followed by pain management, states she takes 3-4 Percocet 325 mg daily, hx nausea/vomiting/anxiety, here for the 3rd time in 3 days for same problem: nausea, constipation.
Daughter states she cannot take Zofran or Pepcid 'they make me sick' can only take Compazine or Benadryl.
Since she left here yesterday, she has not vomited. Daughter states she's sticking her finger down her throat to try to vomit. Pt states this is because she feels so nauseous. She feels constipated, she gave herself an enema this a.m. and had a
'medium' sized BM.
Daughter at bedside states she is so anxious about her health. Pt states she did get rx for Zoloft and took first dose yesterday
Daughter has also made appointment in [place] to have pt evaluated for narcotic dependency and wants to get her weaned off the Percocet.
8:45 PM:
UA unremarkable
Labs from yesterday and the day before reviewed, no clinically significant abnormality. No indication to repeat labs
CT abdomen pelvis with p.o. and IV contrast radiology report read: IMPRESSION:
There is apparent focal wall thickening and stranding along the second portion of the duodenum which likely represents duodenitis. Duodenal ulcer is considered less likely.
Colonic diverticulosis. Mild/moderate colonic stool burden.
Prior cholecystectomy with prominence of the intrahepatic and extra hepatic bile ducts which is similar in appearance to prior and likely reservoir effect in the setting of prior cholecystectomy.
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
There is unchanged 3 mm focal dilation of the infrarenal abdominal aorta.
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
Plan:
Carafate, text message sent to GI director of front office to get patient in sooner rather than later as she has an appointment for sometime in February
All results discussed with patient and daughter, patient states she is comfortable going home.
First dose of Carafate given here, prescription sent to her pharmacy
*Critical Care Note
Total Time (30-74mins, 75-104mins- exclusive of procedures): Not Applicable
ED Attending Note
-
Portions of this chart may have been created with voice recognition software.� Occasional wrong word or��sound alike� substitutions may have occurred due to the inherent limitations of voice recognition software.
Discharge Plan
Departure
Patient Disposition: Home (Routine Discharge)
Date of Disposition: 01/01/25
Time of Disposition: 20:54
Patient with high blood pressure during this ER visit?: No
Condition: Fair
Discharge Problem:
Nausea, Duodenitis
Instructions: [place] Diet, Nausea and Vomiting, Adult (DC)
Prescriptions:
No Action
trazodone 50 mg Tablet
25 mg PO HS
polyethylene glycol 3350 [Miralax] 17 gram Powder In Packet
17 g PO DAILYPRN PRN (Reason: constipation)
ofloxacin 0.3 % Drops
1 drp LEFT EYE HS
cyanocobalamin (vitamin B-12) 1,000 mcg Tablet
1,000 mcg PO DAILY
sperxrzhjuvm-bwskgotk-gygjug Tablet
1 tab PO DAILY
Lumigan 0.01 % Drops
1 drp RIGHT EYE HS
zinc acetate 50 mg (zinc) Capsule
50 mg PO DAILY
prochlorperazine maleate [Compazine] 10 mg Tablet
10 mg PO Q8HPRN PRN (Reason: Nausea/ vomiting)
folic acid 1 mg Tablet
1 mg PO DAILY
magnesium 250 mg Tablet
250 mg PO DAILY Qty: 0
Prolia 60 mg/mL Syringe
60 mg SC [id number]
PreserVision AREDS-2 250-90-40-1 mg Capsule
1 tab PO DAILY
Calcium + D
1 gummy PO DAILY
Movantik 25 mg Tablet
25 mg PO DAILY
Fleet Enema 19-7 gram/118 mL Enema
118 ml [place] DAILY PRN (Reason: constipation)
Visbiome 112.5 billion cell Capsule
1 cap PO DAILY Qty: 0
acetaminophen 325 mg tablet
650 mg PO Q6HPRN PRN (Reason: mild pain) Qty: 14 0RF
esomeprazole magnesium 40 mg capsule,delayed release(DR/EC)
40 mg PO DAILY
Linzess 145 mcg Capsule
145 mcg PO DAILYPRN PRN (Reason: constipation)
lidocaine [Lidocare] 4 % adhesive patch,medicated
1 patch topical DAILYPRN PRN (Reason: neck Pain)
Sleep3 10-200-50 mg Tablet,Ir,Delayed Rel,Biphasic
1 tab PO HS
diltiazem HCl 180 mg Capsule,Extended Release 24hr
180 mg PO DAILY Qty: 0 0RF
Eliquis 2.5 mg Tablet
2.5 mg PO BID Qty: 0 0RF
oxycodone-acetaminophen 5-325 mg Tablet
1 tab PO Q4HPRN PRN (Reason: moderate to severe pain) Qty: 5 0RF
prochlorperazine maleate [Compazine] 10 mg tablet
10 mg PO Q8H PRN (Reason: nausea and vomiting) Qty: 20 0RF
lorazepam [Ativan] 0.5 mg tablet
0.5 mg PO DAILY PRN (Reason: anxiety) Qty: 1 0RF
sertraline [Zoloft] 25 mg tablet
25 mg PO DAILY Qty: 14 0RF
Referrals:
Lisy Hilton MD [Family Provider] -
Amanda Kapoor DO [Active] - Next open appointment
Activity Restrictions/Additional Instructions:
As we discussed, your CAT scan shows you have some irritation/inflammation of a small part of the stomach wall called the duodenum.
I sent a prescription to your pharmacy for Carafate to take before each meal and at bedtime for the next week
I sent a message to the GI doctors office to get you in sooner than February, I expect someone will call you within the next 1 to 2 days to set that up
[place] diet until further instructed by the GI
Continue your nausea medication as needed
Interventions
Interventions:
*Risk Screen - Suicide Last Done: 01/01/25 14:32
*General Assessment Last Done: 01/01/25 14:32
*Neglect/Abuse Screening Last Done: 01/01/25 14:32
*ED- Fall Risk Assessment Last Done: 01/01/25 21:00
*ED COVID-19 Vaccine History Last Done: 01/01/25 14:32
*Nursing Disposition Last Done: 01/01/25 21:00
WX-Wivxrw-Echebdukli Assessment Last Done: 01/01/25 16:00
Discharge Date and Time
Discharge Date/Time: 01/01/25 21:00
Print Language: TAIWANESE
[2025-01-01] MEDS: OMNIPAQUE 50 ML PO (17:00)
[2025-01-01] MEDS: NSS 1000 IV (17:11)
[2025-01-01 17:38] LABS: Urine Albumin Negative (Neg - Trace); Urine Bilirubin Negative (Negative); Urine Character Slightly Cloudy (Clear); Urine Glucose Negative (Negative); Urine Ketone Negative (Negative); Urine Leukocyte 1+ (Negative); Urine Nitrite Negative (Negative); Urine Occult Blood Negative (Negative); Urine Specific Gravity 1.005 (<1.030); Urine Urobilinogen Negative (Neg - 1+)
[2025-01-01 17:43] LABS: Urine Color Straw
[2025-01-01 17:46] LABS: Urine Red Blood Cell 0-2 /HPF (0-2)
[2025-01-01] MEDS: CARAFATE 1 GRAM PO (20:58)
== END 2025-01-01 21:00 | disposition home or self-care (01) ==
LOC: EMR 14:27
PROVIDERS: EMERGENCY PHYSICIAN Emergency Medicine; FAMILY PHYSICIAN Family Medicine
DX: K29.80 Duodenitis without bleeding (principal); R11.0 Nausea; K59.00 Constipation, unspecified; I48.0 Paroxysmal atrial fibrillation; G89.29 Other chronic pain; M54.9 Dorsalgia, unspecified; F41.9 Anxiety disorder, unspecified; H40.9 Unspecified glaucoma; G62.9 Polyneuropathy, unspecified; M81.0 Age-related osteoporosis without current pathological fracture; F11.20 Opioid dependence, uncomplicated; Z96.652 Presence of left artificial knee joint; Z87.891 Personal history of nicotine dependence; Z90.49 Acquired absence of other specified parts of digestive tract; Z79.01 Long term (current) use of anticoagulants; Z88.1 Allergy status to other antibiotic agents; Z88.3 Allergy status to other anti-infective agents; Z88.5 Allergy status to narcotic agent; Z88.0 Allergy status to penicillin; Z88.8 Allergy status to other drugs, medicaments and biological substances
CPT/HCPCS: 99284; 96360; 74177; 81003; 81015; 87086; 93005; Q9967

== ENCOUNTER → 2025-01-10 13:27 | Outpatient (REF) | payer MEDICARE, BC, SELFPAY | LOC: WDC 13:27 | PROVIDERS: ATTENDING PHYSICIAN Family Medicine; FAMILY PHYSICIAN Family Medicine | DX: M81.0 Age-related osteoporosis without current pathological fracture (principal); Z12.31 Encounter for screening mammogram for malignant neoplasm of breast | CPT/HCPCS: 77063; 77067; 77080 ==

== ENCOUNTER 2025-01-23 13:17 | Inpatient (IN) | payer MEDICARE, BC, SELFPAY ==
[2025-01-23] VITALS (7 sets, daily range): BP systolic 138–166; BP diastolic 80–94; BMI 22.5
[2025-01-23 10:24] LABS: % Basophils 1.3 % (0-2); % Eosinophils 2.2 % (0-6); % Immature Granulocytes 0.2 % (0-0.5); % Lymphocytes 35.2 % (20.5-51.1); % Monocytes 11.1 % (1.7-9.3); Absolute Basophils 0.1 10^3/uL (0-0.2); Absolute Eosinophils 0.1 10^3/uL (0-0.7); Absolute Monocytes 0.6 10^3/uL (0.1-0.6); Absolute Neutrophils 2.8 10^3/uL (1.4-6.5); Hematocrit 36.8 % (37.0-47.0); Hemoglobin 12.3 g/dL (12.0-16.0); Mean Corp Hgb Conc. 33.4 g/dL (33.0-37.0); Mean Corpuscular Hgb 33.7 pg (27.0-31.0); Mean Corpuscular Volume 100.8 fL (81.0-99.0); Mean Platelet Volume 10.2 fL (7.4-10.4); Nucleated Red Blood Cells % 0 %; Platelet Count 195 10^3/uL (130-400); Red Blood Cell Count 3.65 10^6/uL (4.20-5.40); Red Cell Dist. Width 12.7 % (11.5-14.5); White Blood Cell Count 5.6 10^3/uL (4.8-10.8)
[2025-01-23 10:42] LABS: ALT (SGPT) 22 U/L (0-35); AST (SGOT) 32 U/L (14-36); Albumin 4.4 g/dl (3.5-5.0); Alkaline Phosphatase 55 U/L (38-126); Blood Urea Nitrogen 22 mg/dl (7-17); Calcium 9.8 mg/dl (8.4-10.2); Carbon Dioxide 26 mmol/L (22-30); Chloride 103 mmol/L (98-107); Glucose 136 mg/dl (70-99); Potassium 4.3 mmol/L (3.5-5.1); Sodium 139 mmol/L (135-145); Total Bilirubin 0.8 mg/dl (0.2-1.3); Total Protein 6.8 g/dl (6.3-8.2); eGFR 49.55
[2025-01-23 10:56] LABS: Lipase 21 U/L (23-300)
--- NOTE | 2025-01-23 12:24 | ED.GENMED ---
History of Present Illness
General
Chief Complaint: Abdominal Symptoms
Time Seen by Provider: 01/23/25 12:03
History of Present Illness
History of Present Illness:
Patient is a 84-year-old woman presenting to the emergency department with continued nausea vomiting. Patient states that she has had multiple emergency department visits for nausea vomiting as well as brain urine [place]. She went to [place]
over the weekend where they completed a CT scan that showed worsening intrahepatic and extrahepatic biliary ductal dilation and recommended ERCP/MRCP. Initially told her to be admitted for GI evaluation however patient declined at that time and
preferred to go home. She states that she is back at she called her GI Dr. Kapoor who advised her to come to the emergency department. She denies any new or worsening abdominal pain. She has been having some nausea but has been intermittently able
to tolerate p.o. She does state that in the past Compazine/Benadryl is what helps her nausea.
Past History
Past History
ED Past Medical History: Psychiatric (Anxiety) and Other (Osteoporosis, Chronic back pain, Hep A, Glaucoma. Vertebral fractures)
ED Past Surgical History: Cholecystectomy, Orthopedic (Left knee replacement, Right hand surgery), Tonsilectomy and Other (hernia repair X 2 hand surgery)
Social History
Tobacco: Non-smoker
Alcohol: None
Personal:
Living: with family
Phy Exam
Physical Exam
Physical Exam:
GENERAL: in no acute distress
HEENT: normocephalic, extraocular movements intact, moist oral mucosa
NECK: normal inspection
RESPIRATORY: no respiratory distress, clear to auscultation bilaterally
CARDIOVASCULAR: regular rate and rhythm
ABDOMEN/: soft, non-distended, non-tender to palpation, no rebound or guarding
EXTREMITIES: non-tender, no edema/swelling
NEUROLOGIC: awake and alert, moves all extremities
SKIN: warm
Course
Orders/Labs/Results
Orders:
Orders
01/23/25 10:18
Complete Blood Count/With Diff Urgent
Comprehensive Metabolic Panel Urgent
Lipase Urgent
01/23/25 12:21
0.9% Sodium Chloride 1000 ml [Nss] 1,000 ml IV BOLUS
Diphenhydramine [Benadryl] 12.5 mg IV NOW STA
Prochlorperazine [Compazine] 10 mg IV NOW STA
Abnormal Lab Results
01/23/25
10:18
RBC 3.65 L 10^6/uL
(4.20-5.40)
Hct 36.8 L %
(37.0-47.0)
MCV 100.8 H fL
(81.0-99.0)
MCH 33.7 H pg
(27.0-31.0)
Monocytes % 11.1 H %
(1.7-9.3)
BUN 22 H mg/dl
(7-17)
Creatinine 1.1 H mg/dL
(0.6-1.0)
Glucose 136 H mg/dl
(70-99)
Lipase 21 L U/L
(23-300)
01/23/25 10:18
01/23/25 10:18
Vital Signs
Initial and Last Documented VS:
Initial Vital Signs
Temp Pulse Resp BP Pulse Ox
98.2 F 85 16 166/88 98
01/23/25 10:08 01/23/25 10:08 01/23/25 10:08 01/23/25 10:08 01/23/25 10:08
Last Documented Vital Signs
Temp Pulse Resp BP Pulse Ox
98.2 F 85 16 166/88 98
01/23/25 10:08 01/23/25 10:08 01/23/25 10:08 01/23/25 10:08 01/23/25 10:08
MDM/Problems Addressed
Differential Diagnosis Includes:
Patient is a 84-year-old woman presenting to the emergency department with worsening nausea and CT scan from outside hospital that showed progressive intrahepatic and extrahepatic biliary ductal dilation. On arrival vitals unremarkable exam does
show benign abdomen. She does have prior cholecystectomy. I did review patient's CT scan which showed the ductal dilation as well as a cystic adnexal mass. Blood work obtained prior to my evaluation shows normal LFTs. Will control patient's
nausea and discussed with GI further recommendations who is in agreement with admission for MRCP. Discussed with hospitalist who accepted patient to their service
*Critical Care Note
Total Time (30-74mins, 75-104mins- exclusive of procedures): Not Applicable
ED Attending Note
-
Portions of this chart may have been created with voice recognition software.� Occasional wrong word or��sound alike� substitutions may have occurred due to the inherent limitations of voice recognition software.
Discharge Plan
Departure
Patient Disposition: Admit
Date of Disposition: 01/23/25
Time of Disposition: 12:34
Presentation/result/management discussed w/ accepting MD/DO: Hospitalist
Discharge Problem:
Dilated bile duct
Prescriptions:
No Action
trazodone 50 mg Tablet
25 mg PO HS
polyethylene glycol 3350 [Miralax] 17 gram Powder In Packet
17 g PO DAILYPRN PRN (Reason: constipation)
ofloxacin 0.3 % Drops
1 drp LEFT EYE HS
cyanocobalamin (vitamin B-12) 1,000 mcg Tablet
1,000 mcg PO DAILY
jclugmocgeae-anmcufgl-rjnjrz Tablet
1 tab PO DAILY
Lumigan 0.01 % Drops
1 drp RIGHT EYE HS
zinc acetate 50 mg (zinc) Capsule
50 mg PO DAILY
prochlorperazine maleate [Compazine] 10 mg Tablet
10 mg PO Q8HPRN PRN (Reason: Nausea/ vomiting)
folic acid 1 mg Tablet
1 mg PO DAILY
magnesium 250 mg Tablet
250 mg PO DAILY Qty: 0
Prolia 60 mg/mL Syringe
60 mg SC [id number]
PreserVision AREDS-2 250-90-40-1 mg Capsule
1 tab PO DAILY
Calcium + D
1 gummy PO DAILY
Movantik 25 mg Tablet
25 mg PO DAILY
Fleet Enema 19-7 gram/118 mL Enema
118 ml [place] DAILY PRN (Reason: constipation)
Visbiome 112.5 billion cell Capsule
1 cap PO DAILY Qty: 0
acetaminophen 325 mg tablet
650 mg PO Q6HPRN PRN (Reason: mild pain) Qty: 14 0RF
esomeprazole magnesium 40 mg capsule,delayed release(DR/EC)
40 mg PO DAILY
Linzess 145 mcg Capsule
145 mcg PO DAILYPRN PRN (Reason: constipation)
lidocaine [Lidocare] 4 % adhesive patch,medicated
1 patch topical DAILYPRN PRN (Reason: neck Pain)
Sleep3 10-200-50 mg Tablet,Ir,Delayed Rel,Biphasic
1 tab PO HS
diltiazem HCl 180 mg Capsule,Extended Release 24hr
180 mg PO DAILY Qty: 0 0RF
Eliquis 2.5 mg Tablet
2.5 mg PO BID Qty: 0 0RF
oxycodone-acetaminophen 5-325 mg Tablet
1 tab PO Q4HPRN PRN (Reason: moderate to severe pain) Qty: 5 0RF
prochlorperazine maleate [Compazine] 10 mg tablet
10 mg PO Q8H PRN (Reason: nausea and vomiting) Qty: 20 0RF
lorazepam [Ativan] 0.5 mg tablet
0.5 mg PO DAILY PRN (Reason: anxiety) Qty: 1 0RF
sertraline [Zoloft] 25 mg tablet
25 mg PO DAILY Qty: 14 0RF
sucralfate [Carafate] 100 mg/mL suspension
10 ml PO BID PRN (Reason: dyspepsia) Qty: 200 0RF
omeprazole 20 mg capsule,delayed release(DR/EC)
20 mg PO DAILY Qty: 14 0RF
Referrals:
Lisy Hilton MD [Family Provider] -
Discharge Date and Time
Print Language: NORWEGIAN
[2025-01-23] MEDS: NSS 1000 IV (12:46)
[2025-01-23] MEDS: BENADRYL 12.5 MG IV (12:46)
[2025-01-23] MEDS: COMPAZINE 10 MG IV (12:46)
--- NOTE | 2025-01-23 13:01 | HPS.HSE ---
Family Physician
-
Family Physician: Lisy Hilton MD
Chief Complaint
-
abdominal pain
History of Present Illness
84-year-old female with past medical history of atrial fibrillation, osteoporosis, vertebral compression fractures, chronic pain syndrome presenting with nausea and vomiting. Patient has been having left upper quadrant abdominal pain nausea and
vomiting intermittently for the past several months to a year. Patient has had multiple emergency room visits for nausea and vomiting at [place]. Went to [place] over the weekend and they performed a CT scan which showed worsening intrahepatic
biliary ductal dilatation recommended ERCP/MRCP. Patient was recommended to be admitted for GI evaluation however she declined at that time and decided to go home. She called her GI doctor Dr. Kapoor who advised her to come to the emergency room.
She denies any new or worsening abdominal pain.
No fevers or chills. She has been constipated and thinks her last bowel movement may have been 2 days ago. She has severe constipation and sometimes has to pull the stool out of her rectum.
She does not smoke or drink alcohol.
Medical History
Past Medical History
Past Medical History: Reports Other (atrial fibrillation, osteoporosis, vertebral compression fractures, chronic pain syndrome)
Past Surgical History: Reports Other (Cholecystectomy, Orthopedic (Left knee replacement, Right hand surgery), Tonsilectomy and Other (hernia repair X 2 hand surgery))
Social History
Tobacco: Non-smoker
Alcohol: None
Drug: None
Family History
Family History: Not pertinent
Allergies / Home Medications
Allergies reflects when Allergies were last updated in [employer].
Home Medications with original date entered in [employer]
Allergy/Medication List:
Allergies
Allergy/AdvReac Type Severity Reaction Status Date / Time
cephalexin Allergy Denies Verified 01/23/25 10:08
Cephalosporins Allergy Esequiel Verified 01/23/25 10:08
hydrocodone Allergy Unknown Verified 01/23/25 10:08
morphine Allergy SEVERE Verified 01/23/25 10:08
VOMITING
Penicillins Allergy patient Verified 01/23/25 10:08
takes
amoxixillin
pre dental
work w/o
adverse
reacti
ondansetron [From Zofran] AdvReac Intermediate Nausea / Verified 01/23/25 10:08
Vomiting
Home Medications
bimatoprost 0.01 % eye drops (Lumigan) 1 drp RIGHT EYE HS Eye Condition 03/15/24
cyanocobalamin (vitamin B-12) 1,000 mcg tablet 1,000 mcg PO DAILY Supplement 03/15/24
rdfyfbrthjyq-dbsvbidu-wucesn tablet 1 tab PO DAILY Supplement 03/15/24
ofloxacin 0.3 % eye drops 1 drp LEFT EYE HS Eye Condition 03/15/24
polyethylene glycol 3350 17 gram oral powder packet (Miralax) 17 g PO DAILYPRN PRN constipation 03/15/24
trazodone 50 mg tablet 25 mg PO HS sleep 03/15/24
Calcium + D 1 gummy PO DAILY Supplement 04/22/24
denosumab 60 mg/mL subcutaneous syringe (Prolia) 60 mg SC [id number] hypercalcemia 04/22/24
folic acid 1 mg tablet 1 mg PO DAILY Supplement 04/22/24
magnesium 250 mg tablet 250 mg PO DAILY Supplement ##0 04/22/24
prochlorperazine maleate 10 mg tablet (Compazine) 10 mg PO Q8HPRN PRN Nausea/ vomiting 04/22/24
vit C 250 mg-vit E 90 mg-zinc 40 mg-copper 1 ch-plgytd-mpxmma capsule (PreserVision AREDS-2) 1 tab PO DAILY Supplement 04/22/24
zinc acetate 50 mg (zinc) capsule 50 mg PO DAILY Supplement 04/22/24
Lactobac no.2-Bifidobac no.1-S. thermo 112.5 billion cell capsule (Visbiome) 1 cap PO DAILY Supplement ##0 04/28/24
acetaminophen 325 mg tablet 650 mg (2 x 325 mg) PO Q6HPRN PRN mild pain #14 tabs 04/28/24
naloxegol 25 mg tablet (Movantik) 25 mg PO DAILY Constipation 04/28/24
sodium phosphates 19 gram-7 gram/118 mL enema (Fleet Enema) 118 ml [place] DAILY PRN constipation 04/28/24
esomeprazole magnesium 40 mg capsule,delayed release 40 mg PO DAILY Gastrointestinal Issue 06/17/24
lidocaine 4 % topical patch (Lidocare) 1 patch topical DAILYPRN PRN neck Pain 06/17/24
linaclotide 145 mcg capsule (Linzess) 145 mcg PO DAILYPRN PRN constipation 06/17/24
melatonin 10 mg-thean 526vo-oae-qbp jgyk-hvbo-xcj tablet,immed-ext rel (Sleep3) 1 tab PO HS 06/18/24
apixaban 2.5 mg tablet (Eliquis) 2.5 mg PO BID #0 tabs 06/21/24
diltiazem HCl 180 mg capsule,extended release 24 hr 180 mg PO DAILY #0 caps 06/21/24
oxycodone-acetaminophen 5 mg-325 mg tablet 1 tab PO Q4HPRN PRN moderate to severe pain #5 tabs 06/21/24
lorazepam 0.5 mg tablet (Ativan) 0.5 mg PO DAILY PRN anxiety #1 tab 12/31/24
prochlorperazine maleate 10 mg tablet (Compazine) 10 mg PO Q8H PRN nausea and vomiting #20 tabs 12/31/24
sertraline 25 mg tablet (Zoloft) 25 mg PO DAILY #14 tabs 12/31/24
omeprazole 20 mg capsule,delayed release 20 mg PO DAILY #14 caps 01/02/25
sucralfate 100 mg/mL oral suspension (Carafate) 10 ml PO BID PRN dyspepsia #200 mL 01/02/25
Review of Systems
-
History Source: Patient
A 12 point ROS was completed and negative except as noted: Yes
Constitutional: Reports No Symptoms
EENT: Reports No Symptoms
Respiratory: Reports No Symptoms
Cardiac: Reports No Symptoms
Abdomen/GI: Reports See HPI
: Reports No Symptoms
Musculoskeletal: Reports No Symptoms
Skin: Reports No Symptoms
Neurological: Reports No Symptoms
Endocrine: Reports No Symptoms
Hematologic/Lymphatic: Reports No Symptoms
Psych: Reports No Symptoms
Physical Exam
Vital Signs
Vital Signs
Temp Pulse Resp BP Pulse Ox
98.2 F 85 16 166/88 98
01/23/25 10:08 01/23/25 10:08 01/23/25 10:08 01/23/25 10:08 01/23/25 10:08
Physical Exam
General: Well Developed, Well Nourished and No Apparent Distress
HEENT: NormoCephalic, Moist mucous membranes and Atraumatic
Respiratory: Clear
Cardiac: S1/S2 and Regular Rhythm; No Murmur or Rub
GI: Soft, Non Distended, Normal Bowel Sounds and Tender (LUQ ); No Organomegaly
Rectal: Deferred by Provider
Musculoskeletal: No Clubbing, No Cyanosis and No Edema
Skin: No Rash
Neuro: Nonfocal/grossly intact
Laboratory Results
-
01/23/25 10:18
01/23/25 10:18
Laboratory Results
Total Bilirubin 0.8 mg/dl (0.2-1.3) 01/23/25 10:18
AST 32 U/L (14-36) 01/23/25 10:18
ALT 22 U/L (0-35) 01/23/25 10:18
Alkaline Phosphatase 55 U/L (38-126) 01/23/25 10:18
Lipase 21 U/L (23-300) L 01/23/25 10:18
Data Reviewed
-
Lab Data: Labs Reviewed by me
Old Records: Reviewed
Impression/Plan
-
IMPRESSION:
PLAN:
# Acute on chronic left upper quadrant abdominal pain/vomiting likely secondary to biliary tract obstruction
# History of cholecystectomy 15 years ago
-CT scan at [place] showed progressive intra and extrahepatic biliary ductal dilatation, extrahepatic common duct measures 15 mm and abrupt cut off sign in the region of the ampulla. No radiodense stones. MRCP/ERCP was recommended. Mild antral
gastritis.
- Check MRCP
- GI consulted
- Compazine for nausea
- N.p.o. for now with sips
Paroxysmal atrial fibrillation
- Continue diltiazem
- Hold Eliquis for potential ERCP
Abdominal aortic aneurysm incidentally discovered
- CT scan shows 3 cm, needs follow-up in 3
Osteoporosis
Multiple compression fractures
Chronic pain syndrome
Opioid-induced constipation
- Continue bowel regimen
Anxiety/depression
- Continue sertraline, Ativan
History of abdominal hernia status post repair
DNR/DNI
DVT prophylaxis�SCDs
N.p.o. with sips
--- NOTE | 2025-01-23 16:49 | PTCARENOTE ---
Received pt from ED into room 412-1 around 15:45. Pt ambulatory to bed with standby/x1 assistance with RW. Notified MD of bridge order set when pt arrived. Pt complains of 6/10 LUQ abdominal pain. See MAR. Oriented to room, call meza within reach.
[2025-01-23] MEDS: LINZESS 145 MCG PO (17:32)
[2025-01-23] MEDS: PERCOCET 5/325 1 TABLET PO ×2 (17:33→22:11)
--- NOTE | 2025-01-23 19:35 | W.PN.UPDATE ---
Update Note
Progress Note Update
Full consult to follow
Sisi is an 84-year-old female with a significant constipation on an extensive bowel regimen who is also on narcotics comes in with persistent nausea who was supposed to undergo an endoscopy with me at 10:00 on Thursday however she went to [place]
[facility] because the nausea worsened. I did not see that CT scan but apparently she has dilated bile ducts which are not new but there is an abrupt cut off in the bile duct and they recommended an MRCP. Her liver enzymes are normal. Denies any weight
loss.
Proceed with MRCP -if MRCP is completely normal would proceed with at least the EGD
Her dilated bile ducts may also be related to her chronic narcotic use
[2025-01-23] MEDS: DESYREL 25 MG PO (22:10)
[2025-01-23] MEDS: XALATAN OPHTHALMIC SOLUTION 1 DROP RIGHT EYE (22:13)
[2025-01-24 07:17] VITALS: BP 152/93
--- NOTE | 2025-01-24 07:17 | CON.GI ---
Addendum entered and electronically signed by Donna Corey MD 01/24/25 14:37:
I saw and examined the patient.
The FINISHING RANGE FEEDER's note was reviewed and I agree with the note.
-chronic nausea
-recent evaluation in [facility] with CT during that visit revealed progressive intra and extrahepatic biliary dilation CBD up to 15mm with abrupt cut off at ampulla no stones, mild gastritis, AAA 3 cm, and enlarging adnexal cystic lesion 1.8 cm.
Liver test on admission normal.
-chronic constipation - narcotic induced
-chronic back pain/hx comp fractures with opioid use and recent increased dose
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
plan
Her multiple GI symptoms can be secondary to chronic opioid use - gastroparesis vs constipation etc
Continue Compazine/Benadryl for nausea
Will get MRI/MRCP for further evaluation of biliary dilatation. LFT normal. Biliary dilatation can be secondary to chronic opiate use as well
Continue bowel regimen-advised to bring Movantik
Minimize opioid use
If symptom persists will plan to do EGD during this admission
Original Note:
Consultation
-
Date/Time Consultation Requested: 01/23/25 1530
Date/Time Consultation Performed: 01/24/25 1000
Requesting Provider: Davonte Anton MD
Performing Provider: ELHAM Schwartz, Donna Corey MD
Reason for Consultation: nausea
Medical History
Chief Complaint / HPI
Chief Complaint: nausea
History of Present Illness:
Pt is a 84-year-old female noted with her daughter today for ongoing issues with nausea with past medical history for severe chronic constipation currently using Movantik , Linzess, miralax ,enema with manual disimpaction in past. She has a
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
found on CT scan as a rib deformity pressing on the stomach. She had recent evaluation in GI office with similar symptoms with constipation, nausea, and epigastric pain. During that evaluation she mentioned recent [facility] on 12/05/2024
for possible enterocolitis versus partial small bowel obstruction. The patient states during that time she was terribly constipated. That during that time with evacuation of bowel she felt better. She got into another cycle again which sent her to
the emergency at [facility] on 12/30/2024, 12/31/2024, and again on 01/01/2025. She states that her symptoms were epigastric discomfort/left upper quadrant discomfort that felt like a twisting and gnawing sensation. This was associated with
nausea and dry heaves. She also had further evaluation at [place] this past weekend. CT during that visit revealed progressive intra and extrahepatic biliary dilation CBD up to 15mm with abrupt cut off at ampulla no stones recommended GI eval and
possible ERCP, mild gastritis, AAA 3 cm, enlarging adnexal cystic lesion 1.8 cm US vs MRI recommended , stable comp fx. She was set up for EGD 01/25 but now cancelled with admission. She also related she is due for follow up with with new
to discusss weaning of narcotics.
In review with patient and daughter her biggest complaint is nausea. It started last year but has excellerated in 2024 with multiple ER and hospital admissions. She states some improvement with Compazine, Benadryl and relief of constipation.
Difficulty to say what make symptoms worse as appears to be ongoing daily without specific time of day. She denies significant wt loss but appetite has been poor. She has occasional small volumes of emesis and occasional GERD on Nexium. She has
some left sided pain that is worse with constipation and present when seen. Last BM was 4 days ago. She dose relate recent increased bowel regiment then passage of stool and feeling better but now now stools again for several days. denies
diarrhea or rectal bleeding.
last GI procedures --7.--03/25/2024 EGD: No significant volvulus. Mild extrinsic compression? - Abnormal esophageal motility, suspicious for presbyesophagus. - Small hiatal hernia. - Extrinsic compression in the gastric body - Significant erosive
gastropathy with no stigmata of recent bleeding. Biopsy neg .08/1224 colon [facility] recalls as normal.
Past Medical History
Past Medical History: Arrhythmias (afib), GERD, Hypercholesterolemia, Psychiatric (depression) and Other (hyponatremia, HH, osteoporosis, chronic pain, opioid dependence, neuropathy, vertebral fractures, spondylosis, colon polyps, vert compression
fracture,possible gastric volvulus and abnormal motility throughout her esophagus, small hiatal hernia, extrinsic compression of the gastric body later to be )
Past Surgical History: Cholecystectomy, Orthopedic (TKR, hand surgery) and Other (bunionectomy, vertibroplasty,excision of buttock mass, hernia repair)
Social History
Tobacco: Former Smoker
Alcohol: None
Drug: None
Living: Alone
Employment: Retired
Family History
Family History: Reviewed & Not Pertinent and Other
Allergies / Home Medications
Allergy/AdvReac Type Severity Reaction Status Date / Time
cephalexin Allergy Denies Verified 01/23/25 10:08
Cephalosporins Allergy Esequiel Verified 01/23/25 10:08
hydrocodone Allergy Unknown Verified 01/23/25 10:08
morphine Allergy SEVERE Verified 01/23/25 10:08
VOMITING
Penicillins Allergy patient Verified 01/23/25 10:08
takes
amoxixillin
pre dental
work w/o
adverse
reacti
ondansetron [From Zofran] AdvReac Intermediate Nausea / Verified 01/23/25 10:08
Vomiting
�Medication �Instructions �Recorded
bimatoprost 0.01 % eye drops 1 drp RIGHT EYE HS Eye Condition 03/15/24
(Lumigan)
cyanocobalamin (vitamin B-12) 1,000 mcg PO DAILY Supplement 03/15/24
1,000 mcg tablet
polyethylene glycol 3350 17 gram 17 g PO DAILYPRN PRN constipation 03/15/24
oral powder packet (Miralax)
trazodone 50 mg tablet 25 mg PO HS sleep 03/15/24
calcium 500 mg (as 1 tab PO DAILY Supplement ##0 04/22/24
carbonate)-vitamin D3 10 mcg (400
unit) tablet (Calcium 500 + D)
folic acid 1 mg tablet 1 mg PO DAILY Supplement 04/22/24
magnesium 250 mg tablet 250 mg PO DAILY Supplement ##0 04/22/24
prochlorperazine maleate 10 mg 10 mg PO Q8HPRN PRN Nausea/ 04/22/24
tablet (Compazine) vomiting
vit C 250 mg-vit E 90 mg-zinc 40 1 tab PO DAILY Supplement 04/22/24
mg-copper 1 [id number]
capsule (PreserVision AREDS-2)
Lactobac no.2-Bifidobac no.1-S. 1 cap PO DAILY Supplement ##0 04/28/24
thermo 112.5 billion cell capsule
(Visbiome)
naloxegol 25 mg tablet (Movantik) 25 mg PO DAILY Constipation 04/28/24
sodium phosphates 19 gram-7 118 ml [place] DAILYPRN PRN constipation 04/28/24
gram/118 mL enema (Fleet Enema)
esomeprazole magnesium 40 mg 40 mg PO DAILY Gastrointestinal 06/17/24
capsule,delayed release Issue
lidocaine 4 % topical patch 1 patch topical DAILYPRN PRN neck 06/17/24
(Lidocare) Pain
linaclotide 145 mcg capsule 145 mcg PO DAILYPRN PRN 06/17/24
(Linzess) constipation
apixaban 2.5 mg tablet (Eliquis) 2.5 mg PO BID #0 tabs 06/21/24
diltiazem HCl 180 mg 180 mg PO DAILY #0 caps 06/21/24
capsule,extended release 24 hr
oxycodone-acetaminophen 5 mg-325 1 tab PO Q4HPRN PRN moderate to 06/21/24
mg tablet severe pain #5 tabs
sertraline 25 mg tablet (Zoloft) 25 mg PO DAILY #14 tabs 12/31/24
sennosides 8.6 mg tablet (senna) 17.2 mg PO DAILY 01/23/25
sucralfate 100 mg/mL oral 10 ml PO BIDPRN PRN dyspepsia 01/23/25
suspension (Carafate)
vitamins A,C,S-mhlk-kbykri 2,148 1 tab PO DAILY 01/23/25
mcg-113 mg-45 mg-17.4 mg tablet
(PreserVision AREDS)
Review of Systems
-
History Source: Patient and Family
Constitutional: Reports Weight Loss (minimal ), Chills and Other (poor appetite )
EENT: Reports No Symptoms
Respiratory: Reports No Symptoms
Cardiac: Reports No Symptoms
Abdomen/GI: Reports Abdominal Pain (left sided worse with constipation ), Nausea, Vomiting (minimal ) and Constipated
: Reports No Symptoms
Musculoskeletal: Reports Joint Pain (chronic back pain )
Skin: Reports No Symptoms
Neurological: Reports Weakness
Endocrine: Reports No Symptoms
Hematologic/Lymphatic: Reports No Symptoms
Vital Signs
Temp Pulse Resp BP Pulse Ox
98.1 F 67 16 138/80 95
01/23/25 23:58 01/23/25 23:58 01/23/25 23:58 01/23/25 23:58 01/23/25 23:58
Physical Exam
Exam
General: Other (thin appearing in some distress with back pain, constipation and nausea )
HEENT: Normocephalic and Anicteric
Respiratory: Clear
Cardiac: Regular Rhythm
GI: Soft, Non Distended and Tender (Left upper/mid abdomen )
Musculoskeletal: No Clubbing and No Cyanosis
Skin: Warm and Dry
Neuro: Awake, Alert and AO x 3
Psych: Calm
Results
WBC 5.6 10^3/uL (4.8-10.8) 01/23/25 10:18
Hgb 12.3 g/dL (12.0-16.0) 01/23/25 10:18
Hct 36.8 % (37.0-47.0) L 01/23/25 10:18
MCV 100.8 fL (81.0-99.0) H 01/23/25 10:18
Plt Count 195 10^3/uL (130-400) 01/23/25 10:18
Absolute Neuts (auto) 2.8 10^3/uL (1.4-6.5) 01/23/25 10:18
Sodium 139 mmol/L (135-145) 01/23/25 10:18
Potassium 4.3 mmol/L (3.5-5.1) 01/23/25 10:18
Chloride 103 mmol/L (98-107) 01/23/25 10:18
Carbon Dioxide 26 mmol/L (22-30) 01/23/25 10:18
BUN 22 mg/dl (7-17) H 01/23/25 10:18
Creatinine 1.1 mg/dL (0.6-1.0) H 01/23/25 10:18
Calcium 9.8 mg/dl (8.4-10.2) 01/23/25 10:18
Total Bilirubin 0.8 mg/dl (0.2-1.3) 01/23/25 10:18
AST 32 U/L (14-36) 01/23/25 10:18
ALT 22 U/L (0-35) 01/23/25 10:18
Alkaline Phosphatase 55 U/L (38-126) 01/23/25 10:18
Lipase 21 U/L (23-300) L 01/23/25 10:18
Diagnostic Image Results:
01/21/25 CT A/p ([place]) that visit revealed progressive intra and extrahepatic biliary dilation CBD up to 15mm with abrupt cut off at ampulla no stones recommended GI eval and possible ERCP, mild gastritis, AAA 3 cm, enlarging adnexal cystic lesion
1.8 cm US vs MRI recommended , stable comp fx atrophic pancreass, mild panc ductl prominence, debris distended stomach mild hyperemia and wall thickening formed stool thoughout colon
-- 01/01/2025 CT abdomen pelvis with IV and oral contrast: Apparent focal wall thickening and stranding along the second portion of the duodenum which likely represents duodenitis. Duodenal ulcer is considered less likely. Colonic diverticulosis.
Mild/moderate colonic stool burden. Prior cholecystectomy with prominence of the intra and extrahepatic bile ducts which is similar in appearance to prior and likely reservoir effect in the setting of prior cholecystectomy. There is unchanged
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 Unchanged 3 mm focal dilatation of the infrarenal abdominal aorta. Scoliotic curvature of the lumbar spine with chronic compression deformities L2
and L1 vertebral bodies.
--12/31/2024 obstruction series with PN chest: Nonobstructive bowel gas pattern. Moderate colonic stool burden. There is a loop of nondilated bowel projecting over the left pubic bone for which a hernia cannot be excluded. No acute cardiopulmonary
abnormality.
--12/05/2024 CT abdomen and pelvis without contrast ([facility]): Nonobstructing calculus in right kidney. Prominent size of fluid-filled and mild thickened small and large bowel loops which may represent enterocolitis. Bowel obstruction
cannot be excluded. Recommend clinical correlation follow-up.
--03/30/2024 CT abd/pelvis with IV/PO: indication - extrinsic compression of the stomach during endoscopy as well as weight loss, heartburn, dysphagia, loss of appetite; Findings: Prominent medial extension of the left lower rib cage that is
compressing against the lateral aspect of the stomach. No gastric mass. No gastric volvulus. Moderate amount of stool retained. Very mild dilation of the common bile duct based on her age which may be related to narcotic use. No findings concerning
for malignancy.
--03/25/2024 EGD: No significant volvulus. Mild extrinsic compression? - Abnormal esophageal motility, suspicious for presbyesophagus. - Small hiatal hernia. - Extrinsic compression in the gastric body - Significant erosive gastropathy with no
stigmata of recent bleeding. Biopsied. neg
--03/21/2024 UGI with esophagram: Decreased motility of the esophagus with tertiary contractions but no stricturing or significant hiatal hernia. Appears to be more nonobstructing gastric volvulus. Needs EGD to confirm than likely General surgery
consultation.
- - 2020 MRI [place] without contrast ordered by Dr. Segundo to look at the biliary tree.� Absent gallbladder, extrahepatic common bile duct 10 mm, history of cholecystectomy.� Mild intrahepatic ductal dilatation with no filling defects.� Nondilated
pancreatic duct. Normal pancreatic parenchyma.
- - 2016, dyspepsia and nausea with Dr. Jasso EGD, regular Z-line acute gastritis otherwise normal negative H. pylori, negative for celiac
Colonoscopy: 08/2024 [facility] recalls as normal
Assessment / Plan
-
Pt is a 84-year-old female noted with her daughter today for ongoing issues with nausea with past medical history for severe chronic constipation currently using Movantik , Linzess, miralax ,enema with manual disimpaction in past. She has a
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
found on CT scan as a rib deformity pressing on the stomach. She had recent evaluation in GI office with similar symptoms with constipation, nausea, and epigastric pain. During that evaluation she mentioned recent [facility] on 12/05/2024
for possible enterocolitis versus partial small bowel obstruction. The patient states during that time she was terribly constipated. That during that time with evacuation of bowel she felt better. She got into another cycle again which sent her to
the emergency at [facility] on 12/30/2024, 12/31/2024, and again on 01/01/2025. She states that her symptoms were epigastric discomfort/left upper quadrant discomfort that felt like a twisting and gnawing sensation. This was associated with
nausea and dry heaves. She also had further evaluation at [place] this past weekend. CT during that visit revealed progressive intra and extrahepatic biliary dilation CBD up to 15mm with abrupt cut off at ampulla no stones recommended GI eval and
possible ERCP, mild gastritis, AAA 3 cm, enlarging adnexal cystic lesion 1.8 cm US vs MRI recommended , stable comp fx. She was set up for EGD 01/25 but now cancelled with admission. She also related she is due for follow up with with new
to discusss weaning of narcotics. In review with patient and daughter her biggest complaint is nausea. It started last year but has excelerated in 2024 with multiple ER and hospital admissions. She states some improvement with Compazine,
Benadryl and relief of constipation. Difficulty to say what make symptoms worse as appears to be ongoing daily without specific time of day. She denies significant wt loss but appetite has been poor. She has occasional small volumes of emesis and
occasional GERD on Nexium. She has some left sided pain that is worse with constipation and present when seen. Last BM was 4 days prior to admission. She dose relate recent increased bowel regiment then passage of stool and feeling better but now
now stools again for several days. denies diarrhea or rectal bleeding.
last GI procedures --03/25/2024 EGD: EGD for abnormal upper GI series, nausea, anemia with normal ferritin, dysphagia and heartburn; Not on PPI. Abnormal motility throughout the esophagus, small hiatal hernia. Extrinsic compression in the gastric
body, CT scan later shows this was a rib. Gastric erosions, negative for pathology. Normal small bowel.� [facility]
-chronic nausea
-decreased appetite
-recent [place] evaluation in ER with CT during that visit revealed progressive intra and extrahepatic biliary dilation CBD up to 15mm with abrupt cut off at ampulla no stones, mild gastritis, AAA 3 cm, and enlarging adnexal cystic lesion 1.8 cm
-chronic constipation - narcotic induced
-chronic back pain/hx comp fractures with opioid use and recent increased dose
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
- rectocele
-small hiatal hernia
-extrinsic compression of the gastric body later to be found on CT scan as a rib deformity pressing on the stomach
-PAF
other med problems:
-GERD
-AAA
-osteoporosis
-anxiety/depression
-hx colon polyps
-abdominal hernia repair
PLAN:Etiology of nausea/ decreased appetite, abdominal pain related to ongoing constipation is setting of increased narcotic use, related to abnormal CT with ductal dilatation and abrupt cut off at ampulla on [place] CT, vs prior noted concern for
gastric volvulus, extrinsic compression of gastric body from rib deformity noted in past vs other
prior CT in March with ductal dilatation 11.5 mm, and December noted prominence but no size
plan for MRI with MRCP to follow up on abnormal CT
will need continued adjustment of bowel regiment on Movanitk(currently awaiting familly to bring) will add standing Miralax BID with senna. Also remains on mag tablets and for enema today, Linzess PRN with dose given since admission
cont antiemetics
OP follow up for continued trial to wean down narcotics
if continued issue consider EGD as was due OP 01/25 but held with admission
CT from [place] noted enlarging Adnexal cyst -- t/c US pelvis -- december Ct adnexal lesion 1.7 cm
daughter updated
Pt is scheduled 03/15/25 at 11 AM with Tiffanie Castorena for GI follow up
-
-
Thank you for consultation and allowing me to participate in the patient's care. Please call the computational scientist GI physician during the after hours with any questions or concerns.
[2025-01-24 07:54] LABS: % Basophils 1.5 % (0-2); % Eosinophils 2.7 % (0-6); % Immature Granulocytes 0.3 % (0-0.5); % Lymphocytes 32.7 % (20.5-51.1); % Monocytes 9.8 % (1.7-9.3); Absolute Basophils 0.1 10^3/uL (0-0.2); Absolute Eosinophils 0.2 10^3/uL (0-0.7); Absolute Lymphocytes 1.9 10^3/uL (1.2-3.4); Absolute Monocytes 0.6 10^3/uL (0.1-0.6); Absolute Neutrophils 3.2 10^3/uL (1.4-6.5); Hematocrit 33.9 % (37.0-47.0); Hemoglobin 11.4 g/dL (12.0-16.0); Mean Corp Hgb Conc. 33.6 g/dL (33.0-37.0); Mean Corpuscular Hgb 32.9 pg (27.0-31.0); Mean Platelet Volume 10.8 fL (7.4-10.4); Nucleated Red Blood Cells % 0 %; Platelet Count 189 10^3/uL (130-400); Red Blood Cell Count 3.46 10^6/uL (4.20-5.40); Red Cell Dist. Width 12.5 % (11.5-14.5); White Blood Cell Count 5.9 10^3/uL (4.8-10.8)
--- NOTE | 2025-01-24 07:59 | W.PN.HOSP.TC ---
Today's Communication/Plan
-
MRCP
Assessment / Plan
Assessment / Plan
Physical exam:
General: Acutely ill
HEENT: Normocephalic, Atraumatic and Moist Mucous Membranes
Respiratory: Clear to Auscultation; Negative Wheezes, Rales or Rhonchi
Cardiac: Regular Rhythm and S1/S2
GI: Soft, tender and Nondistended
Musculoskeletal: No Clubbing, No Cyanosis and No Edema
Neuro: Awake, Alert and Oriented, no neurological deficits
Psych: Anxious
A/P:
Acute on chronic abdominal pain:
Unclear etiology
Started on clear liquid diet per GI
Plan for MRCP today given recent report of intra and extrahepatic biliary dilation including CBD
GI consult appreciated
+/- EGD if needed
Discussed with daughter at bedside today
Persistent nausea:
Prochlorperazine and Benadryl as needed
Chronic pain/chronic opiate dependence:
Continue current narcotics
Patient will discuss with pain services if able to taper or wean some of her narcotics
Aggressive bowel regimen
Paroxysmal A-fib:
Continue rate control, diltiazem
Anticoagulation on hold
DVT prophylaxis:
SCDs
CODE STATUS:
DNR
Total time spent on today's encounter was 52 minutes which included time spent in counseling the patient/family regarding diagnosis and treatment plan as listed above, goals of care, and symptom management. Case was discussed with nursing staff,
specialists, and care coordinators/case management. All labs and imaging personally reviewed by me. Remainder the time spent in detailed review of previous records, lab data, imaging, and other medical provider documentation.
Anticipated Discharge: > 48 hours
Subjective/Interval History
-
Date of Service: January 24, 2025
Patient complains of abdominal discomfort but mostly nausea today. No bowel movement for a few days per patient report. Afebrile
Objective Data
-
Labs:
Laboratory Results
01/24/25
07:19
WBC 5.9
Hgb 11.4 L
Hct 33.9 L
Plt Count 189
Sodium Pending
Potassium Pending
Chloride Pending
Carbon Dioxide Pending
BUN Pending
Creatinine Pending
Glucose Pending
Calcium Pending
Total Bilirubin Pending
AST Pending
ALT Pending
Alkaline Phosphatase Pending
Vital Signs:
Vital Signs
Temp Pulse Resp BP Pulse Ox
98.1 F 67 16 138/80 95
01/23/25 23:58 01/23/25 23:58 01/23/25 23:58 01/23/25 23:58 01/23/25 23:58
[2025-01-24] MEDS: MIRALAX 17 GRAMS PO (08:01)
[2025-01-24] MEDS: CARDIZEM CD 180 MG PO (08:02)
[2025-01-24] MEDS: ZOLOFT 25 MG PO (08:02)
[2025-01-24] MEDS: VISBIOME 1 CAP PO (08:02)
[2025-01-24] MEDS: SENOKOT 17.2 MG PO (08:02)
[2025-01-24] MEDS: OCUVITE SOFTGEL 1 CAP PO (08:02)
[2025-01-24] MEDS: VITAMIN B-12 1000 MCG PO (08:02)
[2025-01-24] MEDS: MAGNESIUM OXIDE 250 MG PO (08:03)
[2025-01-24] MEDS: PROTONIX 40 MG PO (08:03)
[2025-01-24] MEDS: FOLVITE 1 MG PO (08:03)
[2025-01-24] MEDS: COMPAZINE 10 MG PO (08:04)
[2025-01-24 08:13] LABS: ALT (SGPT) 21 U/L (0-35); AST (SGOT) 30 U/L (14-36); Albumin 3.8 g/dl (3.5-5.0); Alkaline Phosphatase 58 U/L (38-126); Blood Urea Nitrogen 17 mg/dl (7-17); Calcium 9.5 mg/dl (8.4-10.2); Carbon Dioxide 25 mmol/L (22-30); Chloride 105 mmol/L (98-107); Estimated Creatinine Clearance 40 ml/min; Glucose 85 mg/dl (70-99); Potassium 4.2 mmol/L (3.5-5.1); Sodium 139 mmol/L (135-145); Total Bilirubin 0.7 mg/dl (0.2-1.3); Total Protein 6.4 g/dl (6.3-8.2); eGFR > 60.00
[2025-01-24] MEDS: OSCAL 500 + D 500 MG PO (08:17)
[2025-01-24] MEDS: BENADRYL 25 MG IV ×2 (10:22→21:15)
--- NOTE | 2025-01-24 10:37 | CM ---
Patient seen bedside w/ daughter Lauren. Initial assessment completed. Patient is a 84-year-old female with past medical history of atrial fibrillation, osteoporosis, vertebral compression fractures, chronic pain syndrome presenting with nausea and
vomiting.
Patient resides alone in a 2STH- 1 step to enter. Patient primarily resides on the first level. Patient uses RW to ambulate, independent w/ ADLs. Patient has grab bar in the bathroom. Patient was prev at [facility] for skilled rehab.
Address, point of contact and insurance verified
PCP: Lisy Hilton
Pharmacy: [facility]
Plan: CM will cont to follow for d/c planning
[2025-01-24] MEDS: FLEET PHOSPHATE ENEMA-ADULT 118 ML RECTAL (12:40)
[2025-01-24 15:38] VITALS: BP 143/89
[2025-01-24] MEDS: NON-FORMULARY ITEM PO (17:41)
[2025-01-24 19:13] VITALS: BMI 22.5
[2025-01-24] MEDS: MIRALAX PO (20:55)
[2025-01-24] MEDS: DESYREL 25 MG PO (21:14)
[2025-01-24] MEDS: XALATAN OPHTHALMIC SOLUTION 1 DROP RIGHT EYE (21:17)
[2025-01-24 23:14] VITALS: BP 142/80
[2025-01-25] MEDS: PERCOCET 5/325 1 TABLET PO ×2 (02:48→08:24)
[2025-01-25 06:59] VITALS: BP 130/78
[2025-01-25 07:17] LABS: Hematocrit 33.4 % (37.0-47.0); Hemoglobin 11.4 g/dL (12.0-16.0); Mean Corp Hgb Conc. 34.1 g/dL (33.0-37.0); Mean Corpuscular Hgb 33.2 pg (27.0-31.0); Mean Corpuscular Volume 97.4 fL (81.0-99.0); Mean Platelet Volume 10.8 fL (7.4-10.4); Platelet Count 178 10^3/uL (130-400); Red Blood Cell Count 3.43 10^6/uL (4.20-5.40); Red Cell Dist. Width 12.4 % (11.5-14.5)
[2025-01-25 07:53] LABS: Blood Urea Nitrogen 18 mg/dl (7-17); Calcium 9.3 mg/dl (8.4-10.2); Carbon Dioxide 26 mmol/L (22-30); Chloride 104 mmol/L (98-107); Estimated Creatinine Clearance 36 ml/min; Glucose 87 mg/dl (70-99); Potassium 4.1 mmol/L (3.5-5.1); Sodium 139 mmol/L (135-145); eGFR 55.55
[2025-01-25] MEDS: CARDIZEM CD 180 MG PO (08:15)
[2025-01-25] MEDS: VITAMIN B-12 1000 MCG PO (08:15)
[2025-01-25] MEDS: MAGNESIUM OXIDE 250 MG PO (08:16)
[2025-01-25] MEDS: VISBIOME 1 CAP PO (08:16)
[2025-01-25] MEDS: SENOKOT 17.2 MG PO (08:16)
[2025-01-25] MEDS: PROTONIX 40 MG PO (08:17)
[2025-01-25] MEDS: FOLVITE 1 MG PO (08:17)
[2025-01-25] MEDS: OSCAL 500 + D 500 MG PO (08:17)
[2025-01-25] MEDS: OCUVITE SOFTGEL 1 CAP PO (08:17)
[2025-01-25] MEDS: MIRALAX 17 GRAMS PO (08:18)
[2025-01-25] MEDS: NON-FORMULARY ITEM 25 MG PO (08:18)
--- NOTE | 2025-01-25 08:35 | W.PN.HOSP.TC ---
Today's Communication/Plan
-
MRCP
Assessment / Plan
Assessment / Plan
Physical exam:
General: Acutely ill
HEENT: Normocephalic, Atraumatic and Moist Mucous Membranes
Respiratory: Clear to Auscultation; Negative Wheezes, Rales or Rhonchi
Cardiac: Regular Rhythm and S1/S2
GI: Soft, tender and Nondistended
Musculoskeletal: No Clubbing, No Cyanosis and No Edema
Neuro: Awake, Alert and Oriented, no neurological deficits
Psych: Anxious
A/P:
Acute on chronic abdominal pain:
Unclear etiology
Started on clear liquid diet per GI
Plan for MRCP today given recent report of intra and extrahepatic biliary dilation including CBD
GI consult appreciated
+/- EGD if needed
Discussed with daughter at bedside today
Persistent nausea:
Prochlorperazine and Benadryl as needed
Chronic pain/chronic opiate dependence:
Continue current narcotics
Patient will discuss with pain services if able to taper or wean some of her narcotics
Aggressive bowel regimen
Paroxysmal A-fib:
Continue rate control, diltiazem
Anticoagulation on hold
DVT prophylaxis:
SCDs
CODE STATUS:
DNR
Anticipated Discharge: Within 24 hours
Subjective/Interval History
-
Date of Service: January 25, 2025
Patient with less abdominal pain and less nausea today. She had some bowel movements. Tolerating diet. Afebrile
Objective Data
-
Labs:
Laboratory Results
01/25/25
06:44
WBC 6.0
Hgb 11.4 L
Hct 33.4 L
Plt Count 178
Sodium 139
Potassium 4.1
Chloride 104
Carbon Dioxide 26
BUN 18 H
Creatinine 1.0
Glucose 87
Calcium 9.3
Vital Signs:
Vital Signs
Temp Pulse Resp BP Pulse Ox
98.0 F 70 16 142/80 98
01/24/25 23:14 01/24/25 23:14 01/24/25 23:14 01/24/25 23:14 01/24/25 23:14
I&O
01/24/25 01/25/25 01/26/25
06:59 06:59 06:59
Intake Total 1160 / 1160
Balance 1160 / 1160
--- NOTE | 2025-01-25 14:48 | W.DCSUMMARY ---
Discharge Summary
Discharge Data
Date of Admission: 01/23/25
Date of Discharge: 01/25/25
-
Pending Results: No
Hospital Course
Patient 84 years old female history of A-fib, hyperlipidemia, GERD, depression, chronic pain, chronic opiate dependence, came into the hospital abdominal pain and nausea. Patient had a recent visit to another hospital that showed dilatation of the
biliary tree and she was referred to GI as outpatient. Patient was kept n.p.o. and GI consulted. Patient had an MRI of the abdomen and it did show some intrahepatic bile duct dilation but no acute abnormality. Her anticoagulation was initially
held in case any procedures but it was restarted again upon discharge. Patient was treated with supportive care and she was able to tolerate advance diet without any problems. GI cleared her for discharge. She has a follow-up appointment with her
pain services in an attempt to decrease narcotics which most likely help with the etiology of her presentation. She also will follow-up with GI to see if further GI workup will be required as outpatient. Otherwise, she is hemodynamically stable no
abdominal pain moving her bowels okay and tolerating diet. She will be discharged in stable condition today.
Discharge duration: 35 minutes
Discharge Plan
-
Patient Disposition: Home (Routine Discharge)
Discharge Diagnosis/Procedures: Abdominal pain. Nausea. Constipation. Chronic opioid dependence. Paroxysmal atrial fibrillation.
Diet: Low Fat
Activity: As tolerated
Blood Work: Please PCP to order CBC, BMP within 1 week
Referrals:
Lisy Hilton MD [Family Provider] -
Tiffanie Castorena PA-C [Specified Professional Personl] - 03/15/25 11:00 am (follow up with GI as scheduled )
Prescriptions:
New
prochlorperazine maleate 10 mg Tablet
10 mg PO Q6HPRN PRN (Reason: nausea and or vomiting) Qty: 20 0RF
Continued
trazodone 50 mg Tablet
25 mg PO HS
polyethylene glycol 3350 [Miralax] 17 gram Powder In Packet
17 g PO DAILYPRN PRN (Reason: constipation)
cyanocobalamin (vitamin B-12) 1,000 mcg Tablet
1,000 mcg PO DAILY
Lumigan 0.01 % Drops
1 drp RIGHT EYE HS
prochlorperazine maleate [Compazine] 10 mg Tablet
10 mg PO Q8HPRN PRN (Reason: Nausea/ vomiting)
folic acid 1 mg Tablet
1 mg PO DAILY
magnesium 250 mg Tablet
250 mg PO DAILY Qty: 0
calcium carbonate-vitamin D3 [Calcium 500 + D] 500 mg-10 mcg (400 unit) Tablet
1 tab PO DAILY Qty: 0
PreserVision AREDS-2 250-90-40-1 mg Capsule
1 tab PO DAILY
Movantik 25 mg Tablet
25 mg PO DAILY
Fleet Enema 19-7 gram/118 mL Enema
118 ml FL DAILYPRN PRN (Reason: constipation)
Visbiome 112.5 billion cell Capsule
1 cap PO DAILY Qty: 0
esomeprazole magnesium 40 mg capsule,delayed release(DR/EC)
40 mg PO DAILY
Linzess 145 mcg Capsule
145 mcg PO DAILYPRN PRN (Reason: constipation)
lidocaine [Lidocare] 4 % adhesive patch,medicated
1 patch topical DAILYPRN PRN (Reason: neck Pain)
diltiazem HCl 180 mg Capsule,Extended Release 24hr
180 mg PO DAILY Qty: 0 0RF
oxycodone-acetaminophen 5-325 mg Tablet
1 tab PO Q4HPRN PRN (Reason: moderate to severe pain) Qty: 5 0RF
sertraline [Zoloft] 25 mg tablet
25 mg PO DAILY Qty: 14 0RF
PreserVision AREDS 2,148 mcg-113 mg-45 mg-17.4mg Tablet
1 tab PO DAILY
sennosides [senna] 8.6 mg Tablet
17.2 mg PO DAILY
sucralfate [Carafate] 100 mg/mL suspension
10 ml PO BIDPRN PRN (Reason: dyspepsia)
Eliquis 2.5 mg tablet
2.5 mg PO BID
Discharge Orders:
Discharge Patient (As Directed); Ordered 01/25/25
Ordered By: Stewart Olivier
Discharge Date and Time
Discharge Date/Time: 01/25/25 17:36
Print Language: KYRGYZ
[2025-01-25 15:00] VITALS: BP 153/80
--- NOTE | 2025-01-25 15:36 | W.PN.GI.CBS2 ---
Today's Communication / Plan
-
low fat diet
GI follow up as outpatient
Assessment / Plan
-
Pt is a 84-year-old female noted with her daughter today for ongoing issues with nausea with past medical history for severe chronic constipation currently using Movantik , Linzess, miralax ,enema with manual disimpaction in past. She has a
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
found on CT scan as a rib deformity pressing on the stomach. She had recent evaluation in GI office with similar symptoms with constipation, nausea, and epigastric pain. During that evaluation she mentioned recent [facility] on 12/05/2024
for possible enterocolitis versus partial small bowel obstruction. The patient states during that time she was terribly constipated. That during that time with evacuation of bowel she felt better. She got into another cycle again which sent her to
the emergency at [facility] on 12/30/2024, 12/31/2024, and again on 01/01/2025. She states that her symptoms were epigastric discomfort/left upper quadrant discomfort that felt like a twisting and gnawing sensation. This was associated with
nausea and dry heaves. She also had further evaluation at [facility] this past weekend. CT during that visit revealed progressive intra and extrahepatic biliary dilation CBD up to 15mm with abrupt cut off at ampulla no stones recommended GI eval and
possible ERCP, mild gastritis, AAA 3 cm, enlarging adnexal cystic lesion 1.8 cm US vs MRI recommended , stable comp fx. She was set up for EGD 01/25 but now cancelled with admission. She also related she is due for follow up with with new
MD to discusss weaning of narcotics. In review with patient and daughter her biggest complaint is nausea. It started last year but has excelerated in 2024 with multiple ER and hospital admissions. She states some improvement with Compazine,
Benadryl and relief of constipation. Difficulty to say what make symptoms worse as appears to be ongoing daily without specific time of day. She denies significant wt loss but appetite has been poor. She has occasional small volumes of emesis and
occasional GERD on Nexium. She has some left sided pain that is worse with constipation and present when seen. Last BM was 4 days prior to admission. She dose relate recent increased bowel regiment then passage of stool and feeling better but now
now stools again for several days. denies diarrhea or rectal bleeding.
last GI procedures --03/25/2024 EGD: EGD for abnormal upper GI series, nausea, anemia with normal ferritin, dysphagia and heartburn; Not on PPI. Abnormal motility throughout the esophagus, small hiatal hernia. Extrinsic compression in the gastric
body, CT scan later shows this was a rib. Gastric erosions, negative for pathology. Normal small bowel.� 08/1224 [facility] recalls as normal.
-chronic nausea
-decreased appetite
-recent [place] evaluation in ER with CT during that visit revealed progressive intra and extrahepatic biliary dilation CBD up to 15mm with abrupt cut off at ampulla no stones, mild gastritis, AAA 3 cm, and enlarging adnexal cystic lesion 1.8 cm
-chronic constipation - narcotic induced
-chronic back pain/hx comp fractures with opioid use and recent increased dose
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
- rectocele
-small hiatal hernia
-extrinsic compression of the gastric body later to be found on CT scan as a rib deformity pressing on the stomach
-PAF
other med problems:
-GERD
-AAA
-osteoporosis
-anxiety/depression
-hx colon polyps
-abdominal hernia repair
MRI abd 01/25
IMPRESSION: Status post cholecystectomy. Mild diffuse intrahepatic bile duct dilation. There is tortuosity of the common hepatic duct and the common bile duct, measuring up to 8.2 mm, within normal range of less than 9 mm. No evidence for bile duct
calculus.
The pancreas appears moderately atrophic with no evidence for pancreatic mass lesion.
PLAN:
MRI abdomen results discussed with patient/patient's daughter.
Patient is currently doing well on Compazine/Benadryl. Was tolerating liquid diet. Okay to advance to low-fat diet. If tolerating diet okay to discharge home today on Compazine
patient has an appointment with pain management tomorrow. She does not want to miss that appointment. Minimize opioid use in the future advised
Continue bowel regimen
resume anticoagulation
Follow-up with GI as outpatient. Would recommend outpatient EGD if patient remains symptomatic in the future
will s/o. please call us back if any questions
Total Time Spent with Patient (in minutes): 35
Subjective
Subjective
Date of Service: January 25, 2025
Feeling better with Compazine. Had a BM yesterday
Objective
Data Reviewed
Laboratory Data:
Laboratory Results
01/25/25 06:44
01/25/25 06:44
Laboratory Results
Total Bilirubin 0.7 mg/dl (0.2-1.3) 01/24/25 07:19
AST 30 U/L (14-36) 01/24/25 07:19
ALT 21 U/L (0-35) 01/24/25 07:19
Alkaline Phosphatase 58 U/L (38-126) 01/24/25 07:19
Lipase 21 U/L (23-300) L 01/23/25 10:18
Vital Signs and I&O:
Vital Signs
Temp Pulse Resp BP Pulse Ox
98.8 F 71 16 130/78 96
01/25/25 06:59 01/25/25 06:59 01/25/25 06:59 01/25/25 06:59 01/25/25 06:59
I&O
01/24/25 01/25/25 01/26/25
06:59 06:59 06:59
Intake Total 1160 / 1160
Balance 1160 / 1160
Physical Exam
Physical Exam
GI: Soft, Non Distended and Non Tender
--- NOTE | 2025-01-25 16:25 | CM ---
Patient for d/c today if tolerates diet
IMM reviewed
Private transport
No CM needs at this time
Plan: Home, no needs
== END 2025-01-25 17:36 | disposition home or self-care (01) | DRG 445 ==
LOC: 4 EAST ACU 13:17
PROVIDERS: Student in an Organized Health Care Education/Training Program; ADMITTING PHYSICIAN Hospitalist; ATTENDING PHYSICIAN Hospitalist; CONSULT PHYSICIAN Internal Medicine; EMERGENCY PHYSICIAN Student in an Organized Health Care Education/Training Program; FAMILY PHYSICIAN Family Medicine
DX: K83.8 Other specified diseases of biliary tract (principal); F11.20 Opioid dependence, uncomplicated; I48.0 Paroxysmal atrial fibrillation; I71.40 Abdominal aortic aneurysm, without rupture, unspecified; K29.70 Gastritis, unspecified, without bleeding; M81.0 Age-related osteoporosis without current pathological fracture; K21.9 Gastro-esophageal reflux disease without esophagitis; Z79.01 Long term (current) use of anticoagulants
CPT/HCPCS: 74183; 80048; 80053; 83690; 85025; 85027; 96361; 96374; 96375; 99285; A9575